=== PATIENT | male | born 1935 | race Caucasian/White ===

== ENCOUNTER 2020-01-13 16:05 | Inpatient (IN) | payer MEDICARE, OTHER ==
[~2020-01-13] VITALS: Ht 165.1 cm; Wt 40.8 kg
[~2020-01-13 16:05] MED LIST: NKM
--- NOTE | 2020-01-13 16:08 | Emergency Room Report ---
History of Present Illness General Chief Complaint: Dyspnea/Respdistress Source: EMS Present Illness HPI Patient is an 84-year-old male past medical history of end-stage renal disease on dialysis Thursday and dementia who was brought in by EMS from his dialysis center for possible chest pain. Per EMS patient was about 1 hour into his dialysis when he started kind of pounding on his chest like he wanted to clear his chest and brought up some thick yellow-green phlegm. Patient is Farsi speaking. I attempted to speak with him in Farsi and he is not responsive. Unable to obtain further history at this time. Allergies: Coded Allergies: LACTOSE (Unverified Allergy, Unknown, 01/13/20) COVID-19 Screening Contact w/high risk pt: No Recent Travel to affected area: No Experienced COVID-19 symptoms?: Yes COVID-19 symptoms experienced: Shortness of Breath, Cough COVID-19 Testing performed GILL NET STRINGER: No Patient History Past Medical History: dementia, renal disease, dialysis Past Surgical History: unable to obtain Pertinent Family History: unable to obtain Nursing Documentation-PMH Hx Hypertension: Yes Hx Diabetes: Yes Hx Dialysis: Yes - CKD History Of Psychiatric Problem: Yes - depression, alzheimer Review of Systems All Other Systems: limited - dementia, non-verbal Physical Exam Vital Signs Date Time Temp Pulse Resp B/P (MAP) Pulse Ox O2 Delivery O2 Flow Rate FiO2 01/13/20 15:57 97.9 100 18 93/52 (66) 100 Room Air Sp02 EP Interpretation: reviewed, normal - on 4L NC General Appearance: other - elderly, non-verbal, Chronically Ill Head: normocephalic, atraumatic Eyes: bilateral eye normal inspection, bilateral eye PERRL ENT: normal pharynx, no angioedema Neck: full range of motion, supple/symm/no masses Respiratory: no respiratory distress, rhonchi, other - R anteior chest wall dialysis catheter in place Cardiovascular #1: regular rate, rhythm, no edema Gastrointestinal: normal bowel sounds, non tender, soft, non-distended, no guarding, no rebound Rectal: deferred Musculoskeletal: back normal Skin: no rash Lymphatic: no adenopathy Procedures Critical Care Time Critical Care Time Total critical care time: Approximately 35 minutes. Due to a high probability of clinically significant, life threatening deterioration, the patient required my highest level of preparedness to intervene emergently and I personally spent this critical care time directly and personally managing the patient. This critical care time included obtaining a history; examining the patient; pulse oximetry; ordering and review of studies; arranging urgent treatment with development of a management plan; evaluation of patient's response to treatment ; frequent reassessment; and, discussions with other providers.This critical care time was performed to assess and manage the high probability of imminent, life-threatening deterioration that could result in multi-organ failure. It was exclusive of separately billable procedures and treating other patients and teaching time. Please see MDM section and the rest of the note for further information on patient assessment and treatment. Medical Decision Making Diagnostic Impression: Primary Impression: Pneumonia Additional Impressions: Chronic renal failure Suspected COVID-19 virus infection ER Course Patient pancultured. Patient has right lower lobe infiltrate. Suspected COVID- 19 infection. COVID-19 PCR sent. Patient has been on droplet precautions. Patient started on vancomycin and cefepime. Additional labs were ordered including d-dimer, CRP, lactate dehydrogenase and ferritin for them to trend due to the COVID-19 pandemic. Laboratory Tests Test 01/13/20 15:59 01/13/20 16:45 Arterial Blood pH 7.354 (7.350-7.450) Arterial Blood Partial Pressure CO2 44.2 mmHg (35.0-45.0) Arterial Blood Partial Pressure O2 92.1 mmHg (75.0-100.0) Arterial Blood HCO3 24.1 mmol/L (22.0-26.0) Arterial Blood Oxygen Saturation 96.4 % (95-100) Arterial Blood Base Excess -1.6 (-2-2) Yimi Test Positive White Blood Count 11.0 K/UL (4.8-10.8) H Red Blood Count 4.27 M/UL (4.70-6.10) L Hemoglobin 12.6 G/DL (14.2-18.0) L Hematocrit 43.9 % (42.0-52.0) Mean Corpuscular Volume 103 FL (80-99) H Mean Corpuscular Hemoglobin 29.6 PG (27.0-31.0) Mean Corpuscular Hemoglobin Concent 28.8 G/DL (32.0-36.0) L Red Cell Distribution Width 22.5 % (11.6-14.8) H Platelet Count 93 K/UL (150-450) L Mean Platelet Volume 11.3 FL (6.5-10.1) H Neutrophils (%) (Auto) % (45.0-75.0) Lymphocytes (%) (Auto) % (20.0-45.0) Monocytes (%) (Auto) % (1.0-10.0) Eosinophils (%) (Auto) % (0.0-3.0) Basophils (%) (Auto) % (0.0-2.0) Differential Total Cells Counted 100 Neutrophils % (Manual) 93 % (45-75) H Lymphocytes % (Manual) 3 % (20-45) L Monocytes % (Manual) 3 % (1-10) Eosinophils % (Manual) 0 % (0-3) Basophils % (Manual) 0 % (0-2) Band Neutrophils 1 % (0-8) Platelet Estimate Decreased L Platelet Morphology Normal Polychromasia 1+ Hypochromasia 1+ Anisocytosis 3+ Macrocytosis 2+ Prothrombin Time 14.8 SEC (9.30-11.50) H Prothrombin Time INR 1.4 (0.9-1.1) H Activated Partial Thromboplast Time 35 SEC (23-33) H D-Dimer 2.03 mg/L FEU (0.00-0.49) H Sodium Level 143 MMOL/L (136-145) Potassium Level 4.9 MMOL/L (3.5-5.1) Chloride Level 109 MMOL/L (98-107) H Carbon Dioxide Level 25 MMOL/L (21-32) Anion Gap 9 mmol/L (5-15) Blood Urea Nitrogen 11 mg/dL (7-18) Creatinine 2.3 MG/DL (0.55-1.30) H Estimated Glomerular Filtration Rate 27.1 mL/min (>60) Glucose Level 72 MG/DL (74-106) L Lactic Acid Level 1.70 mmol/L (0.4-2.0) Calcium Level 8.0 MG/DL (8.5-10.1) L Magnesium Level 1.9 MG/DL (1.8-2.4) Ferritin 214 NG/ML (8-388) Total Bilirubin 0.8 MG/DL (0.2-1.0) Aspartate Amino Transferase (AST) 36 U/L (15-37) Alanine Aminotransferase (ALT) 10 U/L (12-78) L Alkaline Phosphatase 68 U/L (46-116) Lactate Dehydrogenase 307 U/L (81-234) H Total Creatine Kinase 62 U/L (26-308) Creatine Kinase MB 0.7 NG/ML (0.0-3.6) Creatine Kinase MB Relative Index 1.1 Troponin I 0.010 ng/mL (0.000-0.056) C-Reactive Protein, Quantitative 5.7 mg/dL (0.00-0.90) H Pro-B-Type Natriuretic Peptide > 82412 pg/mL (0-125) H Total Protein 6.9 G/DL (6.4-8.2) Albumin 1.8 G/DL (3.4-5.0) L Globulin 5.1 g/dL Albumin/Globulin Ratio 0.4 (1.0-2.7) L EKG Diagnostic Results EKG Time: 16:51 EP Interpretation: MD Jenny Rate: tachycardiac Rhythm: other - sinus tachycardia ST Segments: no acute changes ASA given to the pt in ED: No Rhythm Strip Diag. Results Rhythm Strip Time: 18:12 EP Interpretation: yes - mD Jenny Rate: 93 Rhythm: NSR, no PVC's, no ectopy Chest X-Ray Diagnostic Results Chest X-Ray Diagnostic Results : Chest X-Ray Ordered: Yes # of Views/Limited/Complete: 1 View Indication: Chest Pain EP Interpretation: Yes Interpretation: no effusion, no pneumothorax, other - RLL infiltrate, R dialysis catheter in palce Impression: Other - pneumonia Electronically Signed by: MD Jenny Last Vital Signs Date Time Temp Pulse Resp B/P (MAP) Pulse Ox O2 Delivery O2 Flow Rate FiO2 01/13/20 15:57 97.9 100 18 93/52 (66) 100 Room Air Disposition: ADMITTED INPATIENT - Telemetry Condition: Critical Physician Consult: Yvonne Davis M.D. January 13, 2020 16:08
[2020-01-13 16:15] VITALS: BP 93/52
--- NOTE | 2020-01-13 16:16 | NUR ---
ED Nurse Note: Patient BIBRavi RA41 from a Dialysis Center c/o SOB, cough and congestion. Desating to 88% RA, Pt is now on 4L nc, 100%. Dialysis days MWF. Patient has shunt on his left upper chest, patient AAO x2, skin is warm to touch. IV access established on left forearm 22ga, blood specimen collected sent down.
--- NOTE | 2020-01-13 16:31 | NUR ---
ED Nurse Note: DAUGHTER OVIDIO SON-[phone]
[2020-01-13] MEDS ORDERED: Vancomycin 1.25gm/NS Premix 275 ML IVPB STA (16:32)
[2020-01-13] MEDS ORDERED: Cefepime HCl 2 GM in D5W 55 ML IVPB ONE (16:45)
--- NOTE | 2020-01-13 16:59 | Diagnostic Imaging Report ---
Procedure: XRAY Chest 1v Reason for study: Reason For Exam: COUGH Comparison films: 04/07/2013. FINDINGS: There is a right central venous catheter in place. Vascularity is normal. Mild hazy infiltrate right lung base. Cardiac and mediastinal silhouette are within normal limits. CP angles are sharp. The bony thorax appear unremarkable. IMPRESSION: Mild hazy right basilar infiltrate.
[2020-01-13 17:04] LABS: HEMATOCRIT 43.9 % (42.0-52.0); HEMOGLOBIN 12.6 G/DL (14.2-18.0); MEAN CORPUSCULAR VOLUME 103 FL (80-99); PLATELET COUNT 93 K/UL (150-450); RED BLOOD COUNT 4.27 M/UL (4.70-6.10); RED CELL DISTRIBUTION WIDTH 22.5 % (11.6-14.8)
[2020-01-13 17:20] LABS: INR 1.4 (0.9-1.1)
[2020-01-13 17:38] LABS: ANION GAP 9 mmol/L (5-15); BLOOD UREA NITROGEN 11 mg/dL (7-18); CARBON DIOXIDE 25 MMOL/L (21-32); CHLORIDE 109 MMOL/L (98-107); CREATININE 2.3 MG/DL (0.55-1.30); POTASSIUM 4.9 MMOL/L (3.5-5.1); SODIUM 143 MMOL/L (136-145)
--- NOTE | 2020-01-13 17:39 | Consultation ---
History of Present Illness General Chief Complaint: Dyspnea/Respdistress Reason for Consultation: ESRD on HD Present Illness HPI 84-year-old male past medical history of ESRD on dialysis MWF and dementia who was brought in by EMS from his dialysis center for possible chest pain. Per EMS patient was about 1 hour into his dialysis when he started kind of pounding on his chest like he wanted to clear his chest and brought up some thick yellow- green phlegm. Info obtained from EMR as patient cannot provide any history due to dementia. CXR showed Mild hazy right basilar infiltrate. There is a right central venous catheter in place. Vascularity is normal. Mild hazy infiltrate right lung base. Cardiac and mediastinal silhouette are within normal limits. CP angles are sharp. The bony thorax appear unremarkable. IMPRESSION: Mild hazy right basilar infiltrate. Allergies: Coded Allergies: LACTOSE (Unverified Allergy, Unknown, 01/13/20) Medication History Scheduled Ergocalciferol (Vitamin D2) (Vitamin D2), 50,000 UNIT PO QWEEK, (Reported) Ferrous Sulfate* (Ferrous Sulfate*), 325 MG ORAL DAILY, (Reported) No Known Medications* (NKM - No Known Medications*), 0 ., (Reported) Olanzapine* (Zyprexa*), 2.5 MG ORAL DAILY, (Reported) Pantoprazole* (Protonix*), 40 MG ORAL DAILY, (Reported) Sodium Bicarbonate* (Nahco3*), 325 MG PO BID, (Reported) Miscellaneous Medications Folic Acid/Vitamin B Comp W-C (Neris-Kelsey Tablet), 0.8 MG PO, (Reported) Patient History Healthcare decision maker Resuscitation status Advanced Directive on File Review of Systems ROS Narrative unable to obtain Physical Exam General Appearance: no apparent distress Lines, tubes and drains: peripheral HEENT: normocephalic, atraumatic Neck: non-tender Respiratory/Chest: chest wall non-tender, lungs clear Cardiovascular/Chest: normal peripheral pulses, no JVD Abdomen: normal bowel sounds Extremities: trace edema Skin Exam: no diaphoresis Neurologic: disoriented Last 24 Hour Vital Signs Date Time Temp Pulse Resp B/P (MAP) Pulse Ox O2 Delivery O2 Flow Rate FiO2 01/13/20 16:15 100 18 Room Air 01/13/20 16:15 97.9 18 93/52 100 Room Air 01/13/20 15:57 97.9 100 18 93/52 (66) 100 Room Air Laboratory Tests Test 01/13/20 15:59 01/13/20 16:45 Arterial Blood pH 7.354 (7.350-7.450) Arterial Blood Partial Pressure CO2 44.2 mmHg (35.0-45.0) Arterial Blood Partial Pressure O2 92.1 mmHg (75.0-100.0) Arterial Blood HCO3 24.1 mmol/L (22.0-26.0) Arterial Blood Oxygen Saturation 96.4 % (95-100) Arterial Blood Base Excess -1.6 (-2-2) Yimi Test Positive White Blood Count 11.0 K/UL (4.8-10.8) H Red Blood Count 4.27 M/UL (4.70-6.10) L Hemoglobin 12.6 G/DL (14.2-18.0) L Hematocrit 43.9 % (42.0-52.0) Mean Corpuscular Volume 103 FL (80-99) H Mean Corpuscular Hemoglobin 29.6 PG (27.0-31.0) Mean Corpuscular Hemoglobin Concent 28.8 G/DL (32.0-36.0) L Red Cell Distribution Width 22.5 % (11.6-14.8) H Platelet Count 93 K/UL (150-450) L Mean Platelet Volume 11.3 FL (6.5-10.1) H Neutrophils (%) (Auto) % (45.0-75.0) Lymphocytes (%) (Auto) % (20.0-45.0) Monocytes (%) (Auto) % (1.0-10.0) Eosinophils (%) (Auto) % (0.0-3.0) Basophils (%) (Auto) % (0.0-2.0) Neutrophils % (Manual) Pending Lymphocytes % (Manual) Pending Platelet Estimate Pending Platelet Morphology Pending Prothrombin Time 14.8 SEC (9.30-11.50) H Prothromb Time International Ratio 1.4 (0.9-1.1) H Activated Partial Thromboplast Time 35 SEC (23-33) H D-Dimer 2.03 mg/L FEU (0.00-0.49) H Sodium Level Pending Potassium Level Pending Chloride Level Pending Carbon Dioxide Level Pending Blood Urea Nitrogen Pending Creatinine Pending Estimat Glomerular Filtration Rate Pending Glucose Level Pending Lactic Acid Level 1.70 mmol/L (0.4-2.0) Calcium Level Pending Magnesium Level Pending Ferritin Pending Total Bilirubin Pending Aspartate Amino Transf (AST/SGOT) Pending Alanine Aminotransferase (ALT/SGPT) Pending Alkaline Phosphatase Pending Lactate Dehydrogenase Pending Total Creatine Kinase Pending Creatine Kinase MB Pending Troponin I 0.010 ng/mL (0.000-0.056) C-Reactive Protein, Quantitative Pending Pro-B-Type Natriuretic Peptide Pending Total Protein Pending Albumin Pending Globulin Pending Height (Feet): 5 Height (Inches): 6.00 Weight (Pounds): 85 Medications Current Medications Medications (Trade) Dose Ordered Sig/Dorothy Route PRN Reason Start Time Stop Time Status Last Admin Dose Admin Vancomycin/Sodium Chloride 275 ml @ 183.333 mls/hr Q24H STAT IVPB 01/13/20 16:32 01/13/20 18:01 01/13/20 17:05 Assessment/Plan Diagnosis Hazard I: #ESRD on MWF via R IJ catheter #possible chest pain ? #possible sepsis #possible aspiration pneumonia #Possible pneumonia #Advanced dementia - admit inpatient - vancomycin, cefepime adn flagyl - follow cx - ID eval - pulm eval - breathing tx prn - next Hd on thursday - check PTH/vit D - check iron panel ferritin - monitor mag, phos, BMP daily Time spent 70 min, greater than 50% spent on care coordination and counseling Ying Londono M.D. January 13, 2020 17:39
[2020-01-13 17:55] LABS: ALANINE AMINOTRANSFERASE 10 U/L (12-78); ALBUMIN 1.8 G/DL (3.4-5.0); ALBUMIN/GLOBULIN RATIO 0.4 (1.0-2.7); ALKALINE PHOSPHATASE 68 U/L (46-116); ASPARTATE AMINO TRANSFERASE 36 U/L (15-37); BILIRUBIN,TOTAL 0.8 MG/DL (0.2-1.0); CKMB 0.7 NG/ML (0.0-3.6); CREATINE KINASE 62 U/L (26-308); FERRITIN 214 NG/ML (8-388)
[2020-01-13] MEDS ORDERED: Albuterol/Ipratropium 3ml neb HHN PRN (18:45)
[2020-01-13] MEDS ORDERED: DiphenhydrAMINE 25mg Tab ORAL PRN (18:45)
[2020-01-13 18:55] VITALS: BP 95/51
--- NOTE | 2020-01-13 19:12 | NUR ---
HAND-OFF: Report given to WINDY Shirley.
--- NOTE | 2020-01-13 19:14 | History and Physical ---
History of Present Illness General Date patient seen: January 13, 2020 Time patient seen: 19:00 Reason for Hospitalization: Dyspnea/Respdistress Present Illness HPI Patient is an 84-year-old male past medical history of end-stage renal disease on dialysis Thursday and dementia who was brought in by EMS from his dialysis center for possible chest pain. Per EMS patient was about 1 hour into his dialysis when he started kind of pounding on his chest like he wanted to clear his chest and brought up some thick yellow-green phlegm. Info obtained from EMR as patient cannot provide any history due to dementia. CXR showed Mild hazy right basilar infiltrate Family Hx: Unable to obtain due to dementia Social Hx: Unable to obtain due to dementia Allergies: Coded Allergies: LACTOSE (Unverified Allergy, Unknown, 01/13/20) COVID-19 Screening Contact w/high risk pt: No Recent Travel to affected area: No Experienced COVID-19 symptoms?: Yes COVID-19 symptoms experienced: Shortness of Breath, Cough Medication History Scheduled No Known Medications* (NKM - No Known Medications*), 0 ., (Reported) Patient History Healthcare decision maker Resuscitation status Advanced Directive on File Review of Systems ROS Narrative Unable to obtain due to dementia Physical Exam General Appearance: alert, confused Neck: normal alignment, supple Respiratory/Chest: lungs clear, normal breath sounds, no respiratory distress, no accessory muscle use Cardiovascular/Chest: normal rate, regular rhythm Abdomen: non tender, soft, no organomegaly Neurologic: alert, disoriented Last 24 Hour Vital Signs Date Time Temp Pulse Resp B/P (MAP) Pulse Ox O2 Delivery O2 Flow Rate FiO2 01/13/20 18:55 97.9 78 18 95/51 100 Room Air 01/13/20 16:15 100 18 Room Air 01/13/20 16:15 97.9 18 93/52 100 Room Air 01/13/20 15:57 97.9 100 18 93/52 (66) 100 Room Air Laboratory Tests Test 01/13/20 15:59 01/13/20 16:45 Arterial Blood pH 7.354 (7.350-7.450) Arterial Blood Partial Pressure CO2 44.2 mmHg (35.0-45.0) Arterial Blood Partial Pressure O2 92.1 mmHg (75.0-100.0) Arterial Blood HCO3 24.1 mmol/L (22.0-26.0) Arterial Blood Oxygen Saturation 96.4 % (95-100) Arterial Blood Base Excess -1.6 (-2-2) Yimi Test Positive White Blood Count 11.0 K/UL (4.8-10.8) H Red Blood Count 4.27 M/UL (4.70-6.10) L Hemoglobin 12.6 G/DL (14.2-18.0) L Hematocrit 43.9 % (42.0-52.0) Mean Corpuscular Volume 103 FL (80-99) H Mean Corpuscular Hemoglobin 29.6 PG (27.0-31.0) Mean Corpuscular Hemoglobin Concent 28.8 G/DL (32.0-36.0) L Red Cell Distribution Width 22.5 % (11.6-14.8) H Platelet Count 93 K/UL (150-450) L Mean Platelet Volume 11.3 FL (6.5-10.1) H Neutrophils (%) (Auto) % (45.0-75.0) Lymphocytes (%) (Auto) % (20.0-45.0) Monocytes (%) (Auto) % (1.0-10.0) Eosinophils (%) (Auto) % (0.0-3.0) Basophils (%) (Auto) % (0.0-2.0) Differential Total Cells Counted 100 Neutrophils % (Manual) 93 % (45-75) H Lymphocytes % (Manual) 3 % (20-45) L Monocytes % (Manual) 3 % (1-10) Eosinophils % (Manual) 0 % (0-3) Basophils % (Manual) 0 % (0-2) Band Neutrophils 1 % (0-8) Platelet Estimate Decreased L Platelet Morphology Normal Polychromasia 1+ Hypochromasia 1+ Anisocytosis 3+ Macrocytosis 2+ Prothrombin Time 14.8 SEC (9.30-11.50) H Prothromb Time International Ratio 1.4 (0.9-1.1) H Activated Partial Thromboplast Time 35 SEC (23-33) H D-Dimer 2.03 mg/L FEU (0.00-0.49) H Sodium Level 143 MMOL/L (136-145) Potassium Level 4.9 MMOL/L (3.5-5.1) Chloride Level 109 MMOL/L (98-107) H Carbon Dioxide Level 25 MMOL/L (21-32) Anion Gap 9 mmol/L (5-15) Blood Urea Nitrogen 11 mg/dL (7-18) Creatinine 2.3 MG/DL (0.55-1.30) H Estimat Glomerular Filtration Rate 27.1 mL/min (>60) Glucose Level 72 MG/DL (74-106) L Lactic Acid Level 1.70 mmol/L (0.4-2.0) Calcium Level 8.0 MG/DL (8.5-10.1) L Magnesium Level 1.9 MG/DL (1.8-2.4) Ferritin 214 NG/ML (8-388) Total Bilirubin 0.8 MG/DL (0.2-1.0) Aspartate Amino Transf (AST/SGOT) 36 U/L (15-37) Alanine Aminotransferase (ALT/SGPT) 10 U/L (12-78) L Alkaline Phosphatase 68 U/L (46-116) Lactate Dehydrogenase 307 U/L (81-234) H Total Creatine Kinase 62 U/L (26-308) Creatine Kinase MB 0.7 NG/ML (0.0-3.6) Creatine Kinase MB Relative Index 1.1 Troponin I 0.010 ng/mL (0.000-0.056) C-Reactive Protein, Quantitative 5.7 mg/dL (0.00-0.90) H Pro-B-Type Natriuretic Peptide > 57308 pg/mL (0-125) H Total Protein 6.9 G/DL (6.4-8.2) Albumin 1.8 G/DL (3.4-5.0) L Globulin 5.1 g/dL Albumin/Globulin Ratio 0.4 (1.0-2.7) L Height (Feet): 5 Height (Inches): 6.00 Weight (Pounds): 85 Medications Current Medications Medications (Trade) Dose Ordered Sig/Dorothy Route PRN Reason Start Time Stop Time Status Last Admin Dose Admin Acetaminophen (Tylenol) 650 mg Q4H PRN ORAL Mild Pain (Pain Scale 1-3) 01/13/20 18:45 02/12/20 18:44 Albuterol/ Ipratropium (Albuterol/ Ipratropium) 3 ml Q6H PRN HHN Shortness of Breath 01/13/20 18:45 01/18/20 18:44 Cefepime HCl 1 gm/ Dextrose 55 ml @ 110 mls/hr Q24H IVPB 01/14/20 09:00 01/21/20 08:59 Dextrose (Dextrose 50%) 25 ml Q30M PRN IV Hypoglycemia 01/13/20 18:45 04/12/20 18:44 Dextrose (Dextrose 50%) 50 ml Q30M PRN IV Hypoglycemia 01/13/20 18:45 04/12/20 18:44 Diphenhydramine HCl (Benadryl) 25 mg Q6H PRN ORAL Itching/Pruritis 01/13/20 18:45 02/12/20 18:44 Docusate Sodium (Colace) 100 mg EVERY 12 HOURS ORAL 01/13/20 21:00 02/12/20 20:59 Heparin Sodium (Porcine) (Heparin 5000 units/ml) 5,000 units EVERY 12 HOURS SUBQ 01/13/20 21:00 02/27/20 20:59 UNV Ondansetron HCl (Zofran) 4 mg Q6H PRN IVP Nausea & Vomiting 01/13/20 18:45 02/12/20 18:44 Vancomycin HCl (Vanco rx to dose) 1 ea DAILY PRN MISC Per rx protocol 01/13/20 18:45 02/12/20 18:44 Assessment/Plan Assessment/Plan: 84 year old man with ESRD, dementia who comes in with suspected gram negative vs MRSA pneumonia, also rule out COVID19. #right basilar pneumonia, possible gram negative vs MRSA given he is a dialysis patient. -admit to medical floor -continue broad spectrum antibiotics, vanco and cefepime, monitor vanco levels per pharmacy -check COVID19 PCR -sputum culture, blood culture -aspiration precautions -COVID precautions until ruled out -Pulm and ID consulted #ESRD -HD per Dr. Londono -Monitor BMP #Thrombocytopenia, unclear baseline -monitor CBC -SCD for VTE prophylaxis #Dementia -fall and aspiration precautions I spent 72 minutes on this patient's case, and 39 minutes was dedicated to counseling and/or care coordination with RN, consulting MDs, case management Gil Bethea MD January 13, 2020 19:13
--- NOTE | 2020-01-13 19:15 | NUR ---
ED Nurse Note: Radha the report from Gali. Pt VVS and aslepp comfortably. Will transfer to tele floor.
--- NOTE | 2020-01-13 19:25 | Infectious Diseases Prog Note ---
Assessment/Plan Assessment/Plan Full consult dictated; A) 1) pna - ? hcap, ? aspiration, ? cap 2) ? covid-19 infection/pna 3) sepsis P) 1) vancomycin, cefepime and flagyl 2) check cultures, labs and chest x-ray 3) thank you Subjective Allergies: Coded Allergies: LACTOSE (Unverified Allergy, Unknown, 01/13/20) Objective Vital Signs Last 24 Hour Vital Signs Date Time Temp Pulse Resp B/P (MAP) Pulse Ox O2 Delivery O2 Flow Rate FiO2 01/13/20 18:55 97.9 78 18 95/51 100 Room Air 01/13/20 16:15 100 18 Room Air 01/13/20 16:15 97.9 18 93/52 100 Room Air 01/13/20 15:57 97.9 100 18 93/52 (66) 100 Room Air Height (Feet): 5 Height (Inches): 6.00 Weight (Pounds): 85 Microbiology Date/Time Source Procedure Growth Status 01/13/20 16:45 Rectum Received Laboratory Tests Test 01/13/20 15:59 01/13/20 16:45 Arterial Blood pH 7.354 (7.350-7.450) Arterial Blood Partial Pressure CO2 44.2 mmHg (35.0-45.0) Arterial Blood Partial Pressure O2 92.1 mmHg (75.0-100.0) Arterial Blood HCO3 24.1 mmol/L (22.0-26.0) Arterial Blood Oxygen Saturation 96.4 % (95-100) Arterial Blood Base Excess -1.6 (-2-2) Yimi Test Positive White Blood Count 11.0 K/UL (4.8-10.8) H Red Blood Count 4.27 M/UL (4.70-6.10) L Hemoglobin 12.6 G/DL (14.2-18.0) L Hematocrit 43.9 % (42.0-52.0) Mean Corpuscular Volume 103 FL (80-99) H Mean Corpuscular Hemoglobin 29.6 PG (27.0-31.0) Mean Corpuscular Hemoglobin Concent 28.8 G/DL (32.0-36.0) L Red Cell Distribution Width 22.5 % (11.6-14.8) H Platelet Count 93 K/UL (150-450) L Mean Platelet Volume 11.3 FL (6.5-10.1) H Neutrophils (%) (Auto) % (45.0-75.0) Lymphocytes (%) (Auto) % (20.0-45.0) Monocytes (%) (Auto) % (1.0-10.0) Eosinophils (%) (Auto) % (0.0-3.0) Basophils (%) (Auto) % (0.0-2.0) Differential Total Cells Counted 100 Neutrophils % (Manual) 93 % (45-75) H Lymphocytes % (Manual) 3 % (20-45) L Monocytes % (Manual) 3 % (1-10) Eosinophils % (Manual) 0 % (0-3) Basophils % (Manual) 0 % (0-2) Band Neutrophils 1 % (0-8) Platelet Estimate Decreased L Platelet Morphology Normal Polychromasia 1+ Hypochromasia 1+ Anisocytosis 3+ Macrocytosis 2+ Prothrombin Time 14.8 SEC (9.30-11.50) H Prothromb Time International Ratio 1.4 (0.9-1.1) H Activated Partial Thromboplast Time 35 SEC (23-33) H D-Dimer 2.03 mg/L FEU (0.00-0.49) H Sodium Level 143 MMOL/L (136-145) Potassium Level 4.9 MMOL/L (3.5-5.1) Chloride Level 109 MMOL/L (98-107) H Carbon Dioxide Level 25 MMOL/L (21-32) Anion Gap 9 mmol/L (5-15) Blood Urea Nitrogen 11 mg/dL (7-18) Creatinine 2.3 MG/DL (0.55-1.30) H Estimat Glomerular Filtration Rate 27.1 mL/min (>60) Glucose Level 72 MG/DL (74-106) L Lactic Acid Level 1.70 mmol/L (0.4-2.0) Calcium Level 8.0 MG/DL (8.5-10.1) L Magnesium Level 1.9 MG/DL (1.8-2.4) Ferritin 214 NG/ML (8-388) Total Bilirubin 0.8 MG/DL (0.2-1.0) Aspartate Amino Transf (AST/SGOT) 36 U/L (15-37) Alanine Aminotransferase (ALT/SGPT) 10 U/L (12-78) L Alkaline Phosphatase 68 U/L (46-116) Lactate Dehydrogenase 307 U/L (81-234) H Total Creatine Kinase 62 U/L (26-308) Creatine Kinase MB 0.7 NG/ML (0.0-3.6) Creatine Kinase MB Relative Index 1.1 Troponin I 0.010 ng/mL (0.000-0.056) C-Reactive Protein, Quantitative 5.7 mg/dL (0.00-0.90) H Pro-B-Type Natriuretic Peptide > 54883 pg/mL (0-125) H Total Protein 6.9 G/DL (6.4-8.2) Albumin 1.8 G/DL (3.4-5.0) L Globulin 5.1 g/dL Albumin/Globulin Ratio 0.4 (1.0-2.7) L Current Medications Medications (Trade) Dose Ordered Sig/Dorothy Route PRN Reason Start Time Stop Time Status Last Admin Dose Admin Acetaminophen (Tylenol) 650 mg Q4H PRN ORAL Mild Pain (Pain Scale 1-3) 01/13/20 18:45 02/12/20 18:44 Albuterol/ Ipratropium (Albuterol/ Ipratropium) 3 ml Q6H PRN HHN Shortness of Breath 01/13/20 18:45 01/18/20 18:44 Cefepime HCl 1 gm/ Dextrose 55 ml @ 110 mls/hr Q24H IVPB 01/14/20 09:00 01/21/20 08:59 Dextrose (Dextrose 50%) 25 ml Q30M PRN IV Hypoglycemia 01/13/20 18:45 04/12/20 18:44 Dextrose (Dextrose 50%) 50 ml Q30M PRN IV Hypoglycemia 01/13/20 18:45 04/12/20 18:44 Diphenhydramine HCl (Benadryl) 25 mg Q6H PRN ORAL Itching/Pruritis 01/13/20 18:45 02/12/20 18:44 Docusate Sodium (Colace) 100 mg EVERY 12 HOURS ORAL 01/13/20 21:00 02/12/20 20:59 Heparin Sodium (Porcine) (Heparin 5000 units/ml) 5,000 units EVERY 12 HOURS SUBQ 01/13/20 21:00 7/6/20 20:59 UNV Ondansetron HCl (Zofran) 4 mg Q6H PRN IVP Nausea & Vomiting 01/13/20 18:45 02/12/20 18:44 Vancomycin HCl (Vanco rx to dose) 1 ea DAILY PRN MISC Per rx protocol 01/13/20 18:45 02/12/20 18:44 Marleny Rainey MD January 13, 2020 19:25
[2020-01-13] MEDS ORDERED: VITAMIN D250 MC1 PO (19:31)
[2020-01-13] MEDS ORDERED: ZYPREXA2.5 MG ORAL (19:31)
[2020-01-13] MEDS ORDERED: RENA-VITE TABL0.8 M1 PO (19:31)
[2020-01-13] MEDS ORDERED: PROTONIX40 MG ORAL (19:31)
[2020-01-13] MEDS ORDERED: FERROUS SULFAT325 MG ORAL (19:31)
[2020-01-13] MEDS ORDERED: SODIUM BICARBO650 MG PO (19:31)
--- NOTE | 2020-01-13 19:34 | NUR ---
ED Nurse Note: Tele floor requests to call back at 1999.
[2020-01-13 20:00] VITALS: BP 116/57
[2020-01-13] MEDS: Docusate 100mg cap ORAL SCH (21:00)
[2020-01-13] MEDS ORDERED: Heparin 5000 units/ml inj SUBQ SCH (21:00)
--- NOTE | 2020-01-13 21:00 | NUR ---
TRANSFER TO FLOOR: Patient transferred to Tele as ordered, per Dr. Mark. Report given to WINDY Em. Belongings and admission packet sent with pt. Transfered with 1 RN and 1 Tech with michael. Droplet precaution and safety observed.
--- NOTE | 2020-01-13 21:30 | NUR ---
NURSE NOTES: Received report from JAIME Hernandez RN. Pt is stable, denies pain, FLACC 0. No signs or symptoms of acute distress noted at this time. Pt in bed, awake, A&O x 1. Bed in lowest position, bed alarm armed, call light within reach. Will start plan of care and close monitoring.
[2020-01-14] VITALS: BP 121/58
--- NOTE | 2020-01-14 00:45 | Consultation ---
DATE OF CONSULTATION: 01/13/2020 INFECTIOUS DISEASE CONSULTATION CONSULTING PHYSICIAN: Marleny Rainey MD. ATTENDING PHYSICIAN: Ying Londono MD. REFERRING PHYSICIAN: Ying Londono MD. REASON FOR CONSULTATION: Pneumonia, possible sepsis. CHIEF COMPLAINT: Patient's chief complaint coming in to the hospital is pneumonia. HISTORY OF PRESENT ILLNESS: This is an 84-year-old male who has history of end-stage renal disease, on hemodialysis. Patient also has history of dementia and is high risk for aspiration. Patient was getting dialysis and was noted to have chest pain. Patient also had yellow-green phlegm. Patient was brought to [facility]. There is a question if patient is septic. He has Alzheimer's dementia and is at aspiration risk. Chest x-ray shows a pneumonia on the right lower lobe right basilar infiltrate. Infectious Disease consultation requested for antibiotic management. Patient was placed on Vanco and cefepime and also add metronidazole for possible aspiration and also healthcare-acquired pneumonia since he is a dialysis patient also versus community-acquired pneumonia. Patient is also being ruled out COVID-19 virus infection with pneumonia. Patient also could be septic with altered mental status, looks like weakness. He has a mild leukocytosis and tachycardia. Patient was placed on Vanco, Rocephin, Flagyl for pneumonia, sepsis. MAR was noted. Orders were noted. Notes and records reviewed. REVIEW OF SYSTEMS: CONSTITUTIONAL: Generalized fatigue and weakness. He is in isolation for COVID-19 virus. I saw him in the emergency room. He has no fevers. No pressors. HEAD AND NECK: No head pain or neck pain. CARDIAC: He did come in with chest pain. GASTROINTESTINAL: No nausea, vomiting, abdominal pain, or diarrhea. GENITOURINARY: No Louis. He is on hemodialysis. PULMONARY: He has mild cough and congestion, but he has yellow-green sputum production. SKIN: No rash. EXTREMITIES: No pain. NEUROLOGIC: No seizures. Generalized fatigue. No focal weakness. Not a very good historian with Alzheimer's dementia. SKIN: No rash. PAST MEDICAL HISTORY: Patient has a past medical history of following. Patient has a past medical history of Alzheimer's dementia and aspiration risk. Has history of chronic kidney disease, end-stage renal disease, and hemodialysis. He has history of diabetes and also history of hypertension. Also history of depression. SOCIAL HISTORY: Negative for smoking, alcohol, drug abuse. FAMILY HISTORY: Noncontributory. Negative for tuberculosis or cancer. ALLERGIES: Lactulose. No antibiotic allergies. MEDICATIONS: Upon reviewing the MAR, he is on the following medications. He is on cefepime, Vanco, Flagyl, acetaminophen, albuterol treatments, Zofran, diphenhydramine. Outside medications noted and reconciliated. Not documented at this time. PHYSICAL EXAMINATION: VITAL SIGNS: Temperature 97.9, pulse rate 70, respiratory rate 18, blood pressure 95/51, saturation 100% on room air. Pulse rate has been as high as 100. Blood pressure has been systolically in the low 90s. GENERAL: Weak, opens eyes. He is alert. Mild shortness of breath. HEAD AND NECK: Oral exam, no thrush. Eye exam, no icterus. Normocephalic. Neck is supple. No JVD. HEART: Regular. No gallop or murmur. No friction rub. ABDOMEN: Soft. Positive bowel sounds. Nontender. No organomegaly. LUNGS: Bilateral rhonchi and rales, more so on the right. SKIN: No rash or dermatitis. MUSCULOSKELETAL: No septic arthritis or effusions. Legs are without cellulitis. PERIPHERAL VASCULAR: No gangrene. GENITOURINARY: No Louis. He is on hemodialysis. LINE SITES: Without phlebitis. NEUROLOGIC: Generalized weakness. Alert. Weak, but responsive. LABORATORY DATA: White count 11.0, hemoglobin 12.6. Creatinine 2.3. LFTs were noted. Cultures, blood cultures I believe have been ordered. COVID-19 virus PCR has been ordered. So blood cultures are pending and COVID-19 PCR testing pending. IMAGING STUDIES: Chest x-ray shows a right basilar pneumonia or infiltrate. ASSESSMENT AND PLAN: 1. Patient has right-sided pneumonia. Patient is high risk for aspiration or healthcare-acquired pneumonia with history of dialysis including gram-negative MRSA pneumonia and aspiration. Patient also could have community-acquired pneumonia. Patient is possibly septic with mildly elevated white count and tachycardia. Patient must be ruled out for COVID-19 virus infection especially in patient elderly with pneumonia. At this time, we will continue Vanco, cefepime, and Flagyl for MRSA gram-negative anaerobic coverage. Continue Vanco, cefepime, Flagyl for aspiration or healthcare-acquired pneumonia, community-acquired pneumonia and also follow up on COVID-19 PCR testing. Check followup labs, x-ray. Check blood cultures. 2. End-stage renal disease, on hemodialysis. 3. Chronic kidney disease. 4. Depression. 5. Alzheimer's. 6. Dementia. 7. Aspiration risk. 8. Diabetes. 9. Hypertension. 10. Blood sugar and blood pressure treatment for diabetes and hypertension per primary care team. 11. Allergies to lactulose. No antibiotic allergies. 12. Social history is negative. 13. Family history noncontributory. 14. MAR was noted. 15. Case discussed with RN. 16. Continue treatment per primary consultants. Marleny Rainey M.D. DR: CACHORRO JOB#: [id number] CC:
[2020-01-14 04:00] VITALS: BP 110/58
--- NOTE | 2020-01-14 05:30 | NUR ---
NURSE NOTES: Endorsed to Dayanara in Lab that RNs are unable to draw labs for this pt. Dayanara stated she will inform assigned pit laborer.
--- NOTE | 2020-01-14 07:29 | NUR ---
HAND-OFF: Report given to Rogelio Gilliam RN. Pt is in stable condition. Plan of care endorsed.
--- NOTE | 2020-01-14 07:55 | NUR ---
NURSE NOTES: Received report from WINDY Adkins. Patient in bed resting, no active s/s cardiac, respiratory distress noticed at this time. Patient AOx1-2, on room air, IV on right wrist 20G, asymptomatic, patent, intact. Bed in lowest position, side rails upx2, call light within reach, bed alarm on. Will continue to monitor.
[2020-01-14 08:00] VITALS: BP 101/51
[2020-01-14] MEDS: Docusate 100mg cap ORAL SCH ×2 (08:27→21:24)
[2020-01-14] MEDS: Cefepime HCl 1 GM in D5W 55 ML IVPB SCH (08:28)
[2020-01-14 09:03] LABS: HEMATOCRIT 42.2 % (42.0-52.0); HEMOGLOBIN 13.2 G/DL (14.2-18.0); MEAN CORPUSCULAR VOLUME 95 FL (80-99); PLATELET COUNT 89 K/UL (150-450); RED BLOOD COUNT 4.45 M/UL (4.70-6.10); RED CELL DISTRIBUTION WIDTH 22.3 % (11.6-14.8); WHITE BLOOD COUNT 11.4 K/UL (4.8-10.8)
[2020-01-14 09:57] LABS: ANION GAP 8 mmol/L (5-15); CALCIUM 8.6 MG/DL (8.5-10.1); CARBON DIOXIDE 23 MMOL/L (21-32); CHLORIDE 104 MMOL/L (98-107); POTASSIUM 5.1 MMOL/L (3.5-5.1)
[2020-01-14 10:03] LABS: BLOOD UREA NITROGEN 24 mg/dL (7-18); CREATININE 2.7 MG/DL (0.55-1.30); SODIUM 139 MMOL/L (136-145)
--- NOTE | 2020-01-14 10:55 | NUR ---
RD ASSESSMENT & RECOMMENDATIONS SEE CARE ACTIVITY FOR COMPLETE ASSESSMENT DAILY ESTIMATED NEEDS: Needs based on ESRD, HD/ 37.5kg 30-35 kcals/kg 5640-0054 total kcals 1.2-1.8 g protein/kg 45-68 g total protein Fluids per MD NUTRITION DIAGNOSIS: Increased kcal/prot needs R/T ESRD, underweight status as evidenced by HD dependent, severely underweight w/ BMI 13.8 and @ 61% IBW. ADDITIONAL RECOMMENDATIONS: * Per HD record: dry wt on 01/12= 37.5kg (82.5#) -> calibrated bedscale wt, daily wt monitoring * Monitor PO intake closely, rec liberalized REGULAR w/ poor PO * Monitor lytes closely: K and mag wnl, check phos level * WC eval for sacral wound photo -> add Nephrovite x 1 * Add Nepro TID w/ meals (425kcal/19g prot per mary)
--- NOTE | 2020-01-14 11:40 | General Progress Note ---
Assessment/Plan Assessment/Plan: Assessment #Aspiration PNA--> CXR w/ Right LL infiltrate #R/O COVID #ESRD on HD #Thrombocytopenia #Dementia Plan Appreciate Consultants Continue Broad Spectrum w/ Vancomycin , Flagyl and Cefepime Marti Cx Will consider swallow eval given concern for aspiration PNA Pending COVID test, obtain predictive markers Continue HD per nephro Monitor platelets, if drops below 50 hold chemical DVT ppx Obtain and Reconcile home meds Diet as tolerated Subjective Date patient seen: January 14, 2020 Time patient seen: 12:00 Allergies: Coded Allergies: LACTOSE (Unverified Allergy, Unknown, 01/13/20) Subjective Patient in no acute events; non verbal. Resting Objective Last 24 Hour Vital Signs Date Time Temp Pulse Resp B/P (MAP) Pulse Ox O2 Delivery O2 Flow Rate FiO2 01/14/20 08:00 97.0 79 20 101/51 (68) 92 01/14/20 08:00 74 01/14/20 04:00 72 01/14/20 04:00 98.1 86 20 110/58 (75) 95 01/14/20 00:00 98.6 93 20 121/58 (79) 95 01/13/20 23:34 Nasal Cannula 2.0 01/13/20 20:00 98.4 92 20 116/57 (76) 95 01/13/20 18:55 97.9 78 18 95/51 100 Room Air 01/13/20 16:15 100 18 Room Air 01/13/20 16:15 97.9 18 93/52 100 Room Air 01/13/20 15:57 97.9 100 18 93/52 (66) 100 Room Air Laboratory Tests 01/13/20 15:59: Arterial Blood pH 7.354, Arterial Blood Partial Pressure CO2 44.2, Arterial Blood Partial Pressure O2 92.1, Arterial Blood HCO3 24.1, Arterial Blood Oxygen Saturation 96.4, Arterial Blood Base Excess -1.6, Yimi Test Positive 01/13/20 16:45: White Blood Count 11.0H, Red Blood Count 4.27L, Hemoglobin 12.6L, Hematocrit 43.9, Mean Corpuscular Volume 103H, Mean Corpuscular Hemoglobin 29.6, Mean Corpuscular Hemoglobin Concent 28.8L, Red Cell Distribution Width 22.5H, Platelet Count 93L, Mean Platelet Volume 11.3H, Neutrophils (%) (Auto) , Lymphocytes (%) (Auto) , Monocytes (%) (Auto) , Eosinophils (%) (Auto) , Basophils (%) (Auto) , Differential Total Cells Counted 100, Neutrophils % ( Manual) 93H, Lymphocytes % (Manual) 3L, Monocytes % (Manual) 3, Eosinophils % ( Manual) 0, Basophils % (Manual) 0, Band Neutrophils 1, Platelet Estimate DecreasedL, Platelet Morphology Normal, Polychromasia 1+, Hypochromasia 1+, Anisocytosis 3+, Macrocytosis 2+, Prothrombin Time 14.8H, Prothromb Time International Ratio 1.4H, Activated Partial Thromboplast Time 35H, D-Dimer 2.03H , Sodium Level 143, Potassium Level 4.9, Chloride Level 109H, Carbon Dioxide Level 25, Anion Gap 9, Blood Urea Nitrogen 11, Creatinine 2.3H, Estimat Glomerular Filtration Rate 27.1, Glucose Level 72L, Lactic Acid Level 1.70, Calcium Level 8.0L, Magnesium Level 1.9, Ferritin 214, Total Bilirubin 0.8, Aspartate Amino Transf (AST/SGOT) 36, Alanine Aminotransferase (ALT/SGPT) 10L, Alkaline Phosphatase 68, Lactate Dehydrogenase 307H, Total Creatine Kinase 62, Creatine Kinase MB 0.7, Creatine Kinase MB Relative Index 1.1, Troponin I 0.010 , C-Reactive Protein, Quantitative 5.7H, Pro-B-Type Natriuretic Peptide > 83295V , Total Protein 6.9, Albumin 1.8L, Globulin 5.1, Albumin/Globulin Ratio 0.4L 01/14/20 07:45: White Blood Count 11.4H, Red Blood Count 4.45L, Hemoglobin 13.2L, Hematocrit 42.2, Mean Corpuscular Volume 95, Mean Corpuscular Hemoglobin 29.8, Mean Corpuscular Hemoglobin Concent 31.3L, Red Cell Distribution Width 22.3H, Platelet Count 89L, Mean Platelet Volume 9.3, Neutrophils (%) (Auto) , Lymphocytes (%) (Auto) , Monocytes (%) (Auto) , Eosinophils (%) (Auto) , Basophils (%) (Auto) , Differential Total Cells Counted 100, Neutrophils % ( Manual) 97H, Lymphocytes % (Manual) 1L, Monocytes % (Manual) 2, Eosinophils % ( Manual) 0, Basophils % (Manual) 0, Band Neutrophils 0, Platelet Estimate DecreasedL, Platelet Morphology Normal, Anisocytosis 3+, Sodium Level 139, Potassium Level 5.1, Chloride Level 104, Carbon Dioxide Level 23, Anion Gap 8, Blood Urea Nitrogen 24H, Creatinine 2.7H, Estimat Glomerular Filtration Rate 22.5, Glucose Level 88, Calcium Level 8.6 Height (Feet): 5 Height (Inches): 5.00 Weight (Pounds): 85 General Appearance: confused, other - cachectic appearing EENT: PERRL/EOMI Cardiovascular: normal rate, regular rhythm Respiratory/Chest: lungs clear, normal breath sounds, no respiratory distress Abdomen: soft Extremities: other - muscle wasting, cachexia Neurologic: other - Dementia Roxanna Ugarte D.O. January 14, 2020 11:40
[2020-01-14 12:00] VITALS: BP 98/49
--- NOTE | 2020-01-14 12:06 | Nephrology Progress Note ---
Assessment/Plan Plan #ESRD on MWF via R IJ catheter #possible chest pain ? #possible sepsis #possible aspiration pneumonia #Possible pneumonia #Advanced dementia - next HD on thursday - vancomycin, cefepime adn flagyl - follow cx - ID eval - pulm eval - breathing tx prn - next Hd on thursday - check PTH/vit D - check iron panel ferritin - monitor mag, phos, BMP daily Time spent 70 min, greater than 50% spent on care coordination and counseling Subjective ROS Limited/Unobtainable: Yes Subjective evaluated by I started on antibiotics vitals stable Objective Objective Last 24 Hour Vital Signs Date Time Temp Pulse Resp B/P (MAP) Pulse Ox O2 Delivery O2 Flow Rate FiO2 01/14/20 08:00 97.0 79 20 101/51 (68) 92 01/14/20 08:00 74 01/14/20 04:00 72 01/14/20 04:00 98.1 86 20 110/58 (75) 95 01/14/20 00:00 98.6 93 20 121/58 (79) 95 01/13/20 23:34 Nasal Cannula 2.0 01/13/20 20:00 98.4 92 20 116/57 (76) 95 01/13/20 18:55 97.9 78 18 95/51 100 Room Air 01/13/20 16:15 100 18 Room Air 01/13/20 16:15 97.9 18 93/52 100 Room Air 01/13/20 15:57 97.9 100 18 93/52 (66) 100 Room Air Laboratory Tests 01/13/20 15:59: Arterial Blood pH 7.354, Arterial Blood Partial Pressure CO2 44.2, Arterial Blood Partial Pressure O2 92.1, Arterial Blood HCO3 24.1, Arterial Blood Oxygen Saturation 96.4, Arterial Blood Base Excess -1.6, Yimi Test Positive 01/13/20 16:45: White Blood Count 11.0H, Red Blood Count 4.27L, Hemoglobin 12.6L, Hematocrit 43.9, Mean Corpuscular Volume 103H, Mean Corpuscular Hemoglobin 29.6, Mean Corpuscular Hemoglobin Concent 28.8L, Red Cell Distribution Width 22.5H, Platelet Count 93L, Mean Platelet Volume 11.3H, Neutrophils (%) (Auto) , Lymphocytes (%) (Auto) , Monocytes (%) (Auto) , Eosinophils (%) (Auto) , Basophils (%) (Auto) , Differential Total Cells Counted 100, Neutrophils % ( Manual) 93H, Lymphocytes % (Manual) 3L, Monocytes % (Manual) 3, Eosinophils % ( Manual) 0, Basophils % (Manual) 0, Band Neutrophils 1, Platelet Estimate DecreasedL, Platelet Morphology Normal, Polychromasia 1+, Hypochromasia 1+, Anisocytosis 3+, Macrocytosis 2+, Prothrombin Time 14.8H, Prothromb Time International Ratio 1.4H, Activated Partial Thromboplast Time 35H, D-Dimer 2.03H , Sodium Level 143, Potassium Level 4.9, Chloride Level 109H, Carbon Dioxide Level 25, Anion Gap 9, Blood Urea Nitrogen 11, Creatinine 2.3H, Estimat Glomerular Filtration Rate 27.1, Glucose Level 72L, Lactic Acid Level 1.70, Calcium Level 8.0L, Magnesium Level 1.9, Ferritin 214, Total Bilirubin 0.8, Aspartate Amino Transf (AST/SGOT) 36, Alanine Aminotransferase (ALT/SGPT) 10L, Alkaline Phosphatase 68, Lactate Dehydrogenase 307H, Total Creatine Kinase 62, Creatine Kinase MB 0.7, Creatine Kinase MB Relative Index 1.1, Troponin I 0.010 , C-Reactive Protein, Quantitative 5.7H, Pro-B-Type Natriuretic Peptide > 13995H , Total Protein 6.9, Albumin 1.8L, Globulin 5.1, Albumin/Globulin Ratio 0.4L 01/14/20 07:45: White Blood Count 11.4H, Red Blood Count 4.45L, Hemoglobin 13.2L, Hematocrit 42.2, Mean Corpuscular Volume 95, Mean Corpuscular Hemoglobin 29.8, Mean Corpuscular Hemoglobin Concent 31.3L, Red Cell Distribution Width 22.3H, Platelet Count 89L, Mean Platelet Volume 9.3, Neutrophils (%) (Auto) , Lymphocytes (%) (Auto) , Monocytes (%) (Auto) , Eosinophils (%) (Auto) , Basophils (%) (Auto) , Differential Total Cells Counted 100, Neutrophils % ( Manual) 97H, Lymphocytes % (Manual) 1L, Monocytes % (Manual) 2, Eosinophils % ( Manual) 0, Basophils % (Manual) 0, Band Neutrophils 0, Platelet Estimate DecreasedL, Platelet Morphology Normal, Anisocytosis 3+, Sodium Level 139, Potassium Level 5.1, Chloride Level 104, Carbon Dioxide Level 23, Anion Gap 8, Blood Urea Nitrogen 24H, Creatinine 2.7H, Estimat Glomerular Filtration Rate 22.5, Glucose Level 88, Calcium Level 8.6 Height (Feet): 5 Height (Inches): 5.00 Weight (Pounds): 85 Objective General Appearance: no apparent distress Lines, tubes and drains: peripheral HEENT: normocephalic, atraumatic Neck: non-tender Respiratory/Chest: chest wall non-tender, lungs clear Cardiovascular/Chest: normal peripheral pulses, no JVD Abdomen: normal bowel sounds Extremities: trace edema Skin Exam: no diaphoresis Neurologic: disoriented Ying Londono M.D. January 14, 2020 12:06
[2020-01-14 16:00] VITALS: BP 99/52
--- NOTE | 2020-01-14 18:08 | NUR ---
NURSE NOTES: Per Dr. Londono wound consult with Dr. Damon, speech evaluation. Order noted, entered, carried out. Will continue to monitor.
--- NOTE | 2020-01-14 19:15 | Consultation ---
DATE OF CONSULTATION: 01/14/2020 PULMONARY CONSULTATION CONSULTING PHYSICIAN: Alex Rivera MD. HISTORY OF PRESENT ILLNESS: This is an 84-year-old male with history of ESRD on dialysis and has dementia. He came to the hospital with chest pain. The patient reported kind of chest pain and he started coughing up discolored phlegm. The patient cannot provide further history. X-ray of chest confirmed right lung pneumonia. PAST HISTORY: Notable for ESRD on dialysis, chronic thrombocytopenia, dementia. MEDICATIONS: His list of current medications includes DuoNebs, Flagyl, Zofran, vancomycin, subcu heparin, cefepime, and Tylenol. REVIEW OF SYSTEMS: Unreliable. ALLERGIES: None. PHYSICAL EXAMINATION: VITAL SIGNS: Blood pressure 101/50, heart rate 76, respiratory rate 20, he is afebrile, O2 saturation 96% on 2 L of oxygen. GENERAL: Reveals elderly male. HEENT: Unremarkable. CHEST: Shows decreased breath sounds at the right base ABDOMEN: Soft. EXTREMITIES: There is no edema. LABORATORY AND DIAGNOSTIC DATA: White count 11.4, hemoglobin 13, platelet count is . Creatinine 2.7. LDH 307. Troponin negative. Coags show INR of 1.4. D-dimer 2.0. ABG, pH 7.35, pCO2 of 44, pO2 of 92. X-ray of chest shows PermCath in place in right chest, right lung infiltrate noted, and hyperinflation noted. IMPRESSION: 1. Pneumonia. 2. Dementia. 3. ESRD, on dialysis. DISCUSSION: Admit to the hospital. Order oxygen and pulmonary hygiene. We will continue home medications. Broad-spectrum antibiotics. We will follow carefully. Alex Rivera M.D. DR: BETO JOB#: [id number] CC:
--- NOTE | 2020-01-14 19:44 | NUR ---
HAND-OFF: Report given to WINDY Mckoy. Endorsed plan of care.
--- NOTE | 2020-01-14 19:52 | NUR ---
NURSE NOTES: Received report from WINDY Mercado. Patient is asleep lying semi-jin's; resting comfortably. Arousable to verbal and tactile stimuli. No signs of acute distress noted; denies pain at this time. AOx1-2; able to make needs known. Primarily Farsi speaking. Checked IV site; patent and flushed. No erythema, bleeding, or infiltration noted. Right upper chest permcath in place for dialysis access. Bed at lowest position, brakes on, siderails up x3. Call light within reach. Will continue to monitor.
[2020-01-14 20:00] VITALS: BP 92/54
[2020-01-15] VITALS: BP 96/52
[2020-01-15 04:00] VITALS: BP 119/50
--- NOTE | 2020-01-15 07:05 | NUR ---
HAND-OFF: Report given to WINDY Mercado. Patient is asleep lying semi-jin's; resting comfortably. In stable condition.
--- NOTE | 2020-01-15 07:35 | NUR ---
NURSE NOTES Received report from WINDY Mckoy. Pt asleep comfortably in bed. No s/s of acute respiratory and cardiac distress. Permacath on right upper chest, dressing dry and intact. SL on left wrist 22G patent. Bed low, side rails up x3, bed alarm on and call light within reach. Will continue plan of care.
[2020-01-15 07:54] LABS: HEMATOCRIT 36.6 % (42.0-52.0); HEMOGLOBIN 11.5 G/DL (14.2-18.0); MEAN CORPUSCULAR VOLUME 95 FL (80-99); PLATELET COUNT 91 K/UL (150-450); RED BLOOD COUNT 3.85 M/UL (4.70-6.10); RED CELL DISTRIBUTION WIDTH 21.8 % (11.6-14.8); WHITE BLOOD COUNT 14.2 K/UL (4.8-10.8)
[2020-01-15 08:00] VITALS: BP 97/48
[2020-01-15 08:14] LABS: ALANINE AMINOTRANSFERASE 7 U/L (12-78); ALBUMIN 1.7 G/DL (3.4-5.0); ALBUMIN/GLOBULIN RATIO 0.4 (1.0-2.7); ALKALINE PHOSPHATASE 62 U/L (46-116); ANION GAP 12 mmol/L (5-15); ASPARTATE AMINO TRANSFERASE 14 U/L (15-37); BILIRUBIN,TOTAL 0.6 MG/DL (0.2-1.0); BLOOD UREA NITROGEN 26 mg/dL (7-18); CALCIUM 7.8 MG/DL (8.5-10.1); CARBON DIOXIDE 24 MMOL/L (21-32); CHLORIDE 112 MMOL/L (98-107); CREATININE 3.5 MG/DL (0.55-1.30); POTASSIUM 3.9 MMOL/L (3.5-5.1); SODIUM 147 MMOL/L (136-145)
[2020-01-15 08:16] LABS: % IRON SATURATION 70 % (15-50); IRON 28 ug/dL (50-175); TOTAL IRON BINDING CAPACITY 40 ug/dL (250-450)
[2020-01-15 08:29] LABS: PHOSPHORUS 4.7 MG/DL (2.5-4.9)
[2020-01-15] MEDS: Cefepime HCl 1 GM in D5W 55 ML IVPB SCH (08:36)
[2020-01-15] MEDS: Docusate 100mg cap ORAL SCH ×2 (08:36→21:00)
[2020-01-15] MEDS ORDERED: Vancomycin 750mg/NS 275ml IVPB ONE ×2 (10:00)
--- NOTE | 2020-01-15 10:16 | Pulmonology Progress Note ---
Subjective Interval Events: None new Constitutional: Reports: no symptoms HEENT: Repors: no symptoms Respiratory: Reports: no symptoms Cardiovascular: Reports: no symptoms Gastrointestinal/Abdominal: Reports: no symptoms Genitourinary: Reports: no symptoms Allergies: Coded Allergies: LACTOSE (Unverified Allergy, Unknown, 01/13/20) Objective Last 24 Hour Vital Signs Date Time Temp Pulse Resp B/P (MAP) Pulse Ox O2 Delivery O2 Flow Rate FiO2 01/15/20 08:00 97.7 76 20 97/48 (64) 99 01/15/20 08:00 74 01/15/20 04:00 98.0 84 20 119/50 (73) 96 01/15/20 04:00 78 01/15/20 00:00 77 01/15/20 00:00 97.7 82 20 96/52 (67) 95 01/14/20 21:00 Room Air 01/14/20 20:00 98 01/14/20 20:00 96.5 97 19 92/54 (67) 98 01/14/20 16:00 120 01/14/20 16:00 96.6 75 20 99/52 (68) 93 01/14/20 12:00 81 01/14/20 12:00 97.0 61 20 98/49 (65) 96 Intake and Output 01/14/20 01/15/20 19:00 07:00 Intake Total 120 ml 100 ml Balance 120 ml 100 ml Intake Oral 120 ml IV Total 100 ml # Voids 1 1 General Appearance: no acute distress HEENT: normocephalic Respiratory: chest wall non-tender, decreased breath sounds Cardiovascular: normal peripheral pulses Abdomen: normal bowel sounds Extremities: no cyanosis Microbiology Date/Time Source Procedure Growth Status 01/13/20 16:45 Blood Blood Culture - Preliminary NO GROWTH AFTER 24 HOURS Resulted 01/13/20 16:30 Blood Blood Culture - Preliminary NO GROWTH AFTER 24 HOURS Resulted 01/13/20 16:45 Nasal Nares MRSA Culture - Final NO METHICILLIN RESISTANT STAPH AUREUS... Complete 01/13/20 16:45 Rectum - Final NO CARBAPENEM-RESISTANT ENTEROBACTERI... Complete 01/13/20 16:45 Rectum VRE Culture - Final NO VANCOMYCIN RESISTANT ENTEROCOCCUS ... Complete Laboratory Tests 01/15/20 07:35: White Blood Count 14.2H, Red Blood Count 3.85L, Hemoglobin 11.5L, Hematocrit 36.6L, Mean Corpuscular Volume 95, Mean Corpuscular Hemoglobin 29.9, Mean Corpuscular Hemoglobin Concent 31.5L, Red Cell Distribution Width 21.8H, Platelet Count 91L, Mean Platelet Volume 8.1, Neutrophils (%) (Auto) , Lymphocytes (%) (Auto) , Monocytes (%) (Auto) , Eosinophils (%) (Auto) , Basophils (%) (Auto) , Neutrophils % (Manual) [Pending], Lymphocytes % (Manual) [Pending], Platelet Estimate [Pending], Platelet Morphology [Pending], Sodium Level 147H, Potassium Level 3.9, Chloride Level 112H, Carbon Dioxide Level 24, Anion Gap 12, Blood Urea Nitrogen 26H, Creatinine 3.5H, Estimat Glomerular Filtration Rate 16.7, Glucose Level 89, Calcium Level 7.8L, Calcium (Send out) [ Pending], Phosphorus Level 4.7, Magnesium Level 1.8, Iron Level 28L, Total Iron Binding Capacity 40L, Percent Iron Saturation 70H, Unsaturated Iron Binding 12L , Ferritin 283, Total Bilirubin 0.6, Aspartate Amino Transf (AST/SGOT) 14L, Alanine Aminotransferase (ALT/SGPT) 7L, Alkaline Phosphatase 62, Total Protein 6.3L, Albumin 1.7L, Globulin 4.6, Albumin/Globulin Ratio 0.4L, Vitamin D 25- Hydroxy [Pending], 25-Hydroxy Vitamin D2 [Pending], 25-Hydroxy Vitamin D3 [ Pending], Parathyroid Hormone (Intact) [Pending], Random Vancomycin Level 12.1 Current Medications Medications (Trade) Dose Ordered Sig/Dorothy Route PRN Reason Start Time Stop Time Status Last Admin Dose Admin Acetaminophen (Tylenol) 650 mg Q4H PRN ORAL Mild Pain (Pain Scale 1-3) 01/13/20 18:45 02/12/20 18:44 Albuterol/ Ipratropium (Albuterol/ Ipratropium) 3 ml Q6H PRN HHN Shortness of Breath 01/13/20 18:45 01/18/20 18:44 Cefepime HCl 1 gm/ Dextrose 55 ml @ 110 mls/hr Q24H IVPB 01/14/20 09:00 01/21/20 08:59 01/15/20 08:36 Dextrose (Dextrose 50%) 25 ml Q30M PRN IV Hypoglycemia 01/13/20 18:45 04/12/20 18:44 Dextrose (Dextrose 50%) 50 ml Q30M PRN IV Hypoglycemia 01/13/20 18:45 04/12/20 18:44 Diphenhydramine HCl (Benadryl) 25 mg Q6H PRN ORAL Itching/Pruritis 01/13/20 18:45 02/12/20 18:44 Docusate Sodium (Colace) 100 mg EVERY 12 HOURS ORAL 01/13/20 21:00 02/12/20 20:59 01/15/20 08:36 Metronidazole 100 ml @ 100 mls/hr Q8HR IVPB 01/13/20 22:00 01/20/20 21:59 01/15/20 06:04 Ondansetron HCl (Zofran) 4 mg Q6H PRN IVP Nausea & Vomiting 01/13/20 18:45 02/12/20 18:44 Vancomycin HCl (Vanco rx to dose) 1 ea DAILY PRN MISC Per rx protocol 01/13/20 18:45 02/12/20 18:44 Vancomycin HCl 750 mg/Sodium Chloride 275 ml @ 183.333 mls/hr ONCE ONCE IVPB 01/15/20 10:00 01/15/20 11:29 Assessment/Plan Assessment/Plan IMPRESSION: 1. Pneumonia. 2. Dementia. 3. ESRD, on dialysis. DISCUSSION: Continue oxygen and pulmonary hygiene. Continue home medications. Broad-spectrum antibiotics. I will follow carefully. Alex Rivera M.D. Alex Rivera MD January 15, 2020 10:16
--- NOTE | 2020-01-15 10:55 | Diagnostic Imaging Report ---
EXAM: XR Chest, 1 View CLINICAL HISTORY: INFECT TECHNIQUE: Frontal view of the chest. COMPARISON: Chest radiograph On 01/13/2020 FINDINGS: Hardware: Right-sided central venous catheter terminates near the junction of the SVC and right atrium. Lungs/pleura: Hyperinflation of the lungs suggestive of COPD. Opacity in the right mid and lower lung may represents combination of small pleural effusion with atelectasis versus pneumonia. Heart/mediastinum: Atherosclerotic calcifications of the aorta. No cardiomegaly. Soft tissues: Unremarkable. Bones: No acute fracture. Upper abdomen: Normal. IMPRESSION: Hyperinflation of the lungs suggestive of COPD. Opacity in the right mid and lower lung may represents combination of small pleural effusion with atelectasis versus pneumonia.
--- NOTE | 2020-01-15 11:15 | Nephrology Progress Note ---
Assessment/Plan Plan #ESRD on MWF via R IJ catheter #possible chest pain ? #possible sepsis #possible aspiration pneumonia #Possible pneumonia #Advanced dementia discussed with -. plan for Dc home early this week HD tomorrow - next HD on thursday - vancomycin, cefepime adn flagyl - follow cx - ID eval - pulm eval - breathing tx prn - next Hd on thursday - check PTH/vit D - check iron panel ferritin - monitor mag, phos, BMP daily Time spent 70 min, greater than 50% spent on care coordination and counseling Subjective ROS Limited/Unobtainable: Yes Subjective evaluated by ID started on antibiotics vitals stable discussed with -. plan for Dc home early this week HD tomorrow Objective Objective Last 24 Hour Vital Signs Date Time Temp Pulse Resp B/P (MAP) Pulse Ox O2 Delivery O2 Flow Rate FiO2 01/15/20 08:00 97.7 76 20 97/48 (64) 99 01/15/20 08:00 74 01/15/20 04:00 98.0 84 20 119/50 (73) 96 01/15/20 04:00 78 01/15/20 00:00 77 01/15/20 00:00 97.7 82 20 96/52 (67) 95 01/14/20 21:00 Room Air 01/14/20 20:00 98 01/14/20 20:00 96.5 97 19 92/54 (67) 98 01/14/20 16:00 120 01/14/20 16:00 96.6 75 20 99/52 (68) 93 01/14/20 12:00 81 01/14/20 12:00 97.0 61 20 98/49 (65) 96 Intake and Output 01/14/20 01/15/20 19:00 07:00 Intake Total 120 ml 100 ml Balance 120 ml 100 ml Intake Oral 120 ml IV Total 100 ml # Voids 1 1 Laboratory Tests 01/15/20 07:35: White Blood Count 14.2H, Red Blood Count 3.85L, Hemoglobin 11.5L, Hematocrit 36.6L, Mean Corpuscular Volume 95, Mean Corpuscular Hemoglobin 29.9, Mean Corpuscular Hemoglobin Concent 31.5L, Red Cell Distribution Width 21.8H, Platelet Count 91L, Mean Platelet Volume 8.1, Neutrophils (%) (Auto) , Lymphocytes (%) (Auto) , Monocytes (%) (Auto) , Eosinophils (%) (Auto) , Basophils (%) (Auto) , Differential Total Cells Counted 100, Neutrophils % ( Manual) 92H, Lymphocytes % (Manual) 6L, Monocytes % (Manual) 2, Eosinophils % ( Manual) 0, Basophils % (Manual) 0, Band Neutrophils 0, Platelet Estimate DecreasedL, Platelet Morphology Normal, Hypochromasia 1+, Anisocytosis 3+, Sodium Level 147H, Potassium Level 3.9, Chloride Level 112H, Carbon Dioxide Level 24, Anion Gap 12, Blood Urea Nitrogen 26H, Creatinine 3.5H, Estimat Glomerular Filtration Rate 16.7, Glucose Level 89, Calcium Level 7.8L, Calcium ( Send out) [Pending], Phosphorus Level 4.7, Magnesium Level 1.8, Iron Level 28L, Total Iron Binding Capacity 40L, Percent Iron Saturation 70H, Unsaturated Iron Binding 12L, Ferritin 283, Total Bilirubin 0.6, Aspartate Amino Transf (AST/SGOT ) 14L, Alanine Aminotransferase (ALT/SGPT) 7L, Alkaline Phosphatase 62, Total Protein 6.3L, Albumin 1.7L, Globulin 4.6, Albumin/Globulin Ratio 0.4L, Vitamin D 25-Hydroxy [Pending], 25-Hydroxy Vitamin D2 [Pending], 25-Hydroxy Vitamin D3 [ Pending], Parathyroid Hormone (Intact) [Pending], Random Vancomycin Level 12.1 Height (Feet): 5 Height (Inches): 5.00 Weight (Pounds): 85 Objective General Appearance: no apparent distress Lines, tubes and drains: peripheral HEENT: normocephalic, atraumatic Neck: non-tender Respiratory/Chest: chest wall non-tender, lungs clear Cardiovascular/Chest: normal peripheral pulses, no JVD Abdomen: normal bowel sounds Extremities: trace edema Skin Exam: no diaphoresis Neurologic: disoriented Ying Londono M.D. January 15, 2020 11:15
[2020-01-15 12:00] VITALS: BP 116/56
--- NOTE | 2020-01-15 12:17 | Internal Med Progress Note ---
Subjective Date of Service: January 15, 2020 Physician Name Roxanna Ugarte Attending Physician Ying Londono M.D. Current Medications Medications (Trade) Dose Ordered Sig/Dorothy Route PRN Reason Start Time Stop Time Status Last Admin Dose Admin Acetaminophen (Tylenol) 650 mg Q4H PRN ORAL Mild Pain (Pain Scale 1-3) 01/13/20 18:45 02/12/20 18:44 Albuterol/ Ipratropium (Albuterol/ Ipratropium) 3 ml Q6H PRN HHN Shortness of Breath 01/13/20 18:45 01/18/20 18:44 Cefepime HCl 1 gm/ Dextrose 55 ml @ 110 mls/hr Q24H IVPB 01/14/20 09:00 01/21/20 08:59 01/15/20 08:36 Dextrose (Dextrose 50%) 25 ml Q30M PRN IV Hypoglycemia 01/13/20 18:45 04/12/20 18:44 Dextrose (Dextrose 50%) 50 ml Q30M PRN IV Hypoglycemia 01/13/20 18:45 04/12/20 18:44 Diphenhydramine HCl (Benadryl) 25 mg Q6H PRN ORAL Itching/Pruritis 01/13/20 18:45 02/12/20 18:44 Docusate Sodium (Colace) 100 mg EVERY 12 HOURS ORAL 01/13/20 21:00 02/12/20 20:59 01/15/20 08:36 Metronidazole 100 ml @ 100 mls/hr Q8HR IVPB 01/13/20 22:00 01/20/20 21:59 01/15/20 06:04 Ondansetron HCl (Zofran) 4 mg Q6H PRN IVP Nausea & Vomiting 01/13/20 18:45 02/12/20 18:44 Vancomycin HCl (Vanco rx to dose) 1 ea DAILY PRN MISC Per rx protocol 01/13/20 18:45 02/12/20 18:44 Allergies: Coded Allergies: LACTOSE (Unverified Allergy, Unknown, 01/13/20) Subjective Patient is pleasantly demented; Will f/u with attending to see if swallow eval should be performed. 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 normal Skin: warm/dry Laboratory Tests Test 01/15/20 07:35 White Blood Count 14.2 K/UL (4.8-10.8) H Red Blood Count 3.85 M/UL (4.70-6.10) L Hemoglobin 11.5 G/DL (14.2-18.0) L Hematocrit 36.6 % (42.0-52.0) L Mean Corpuscular Volume 95 FL (80-99) Mean Corpuscular Hemoglobin 29.9 PG (27.0-31.0) Mean Corpuscular Hemoglobin Concent 31.5 G/DL (32.0-36.0) L Red Cell Distribution Width 21.8 % (11.6-14.8) H Platelet Count 91 K/UL (150-450) L Mean Platelet Volume 8.1 FL (6.5-10.1) Neutrophils (%) (Auto) % (45.0-75.0) Lymphocytes (%) (Auto) % (20.0-45.0) Monocytes (%) (Auto) % (1.0-10.0) Eosinophils (%) (Auto) % (0.0-3.0) Basophils (%) (Auto) % (0.0-2.0) Differential Total Cells Counted 100 Neutrophils % (Manual) 92 % (45-75) H Lymphocytes % (Manual) 6 % (20-45) L Monocytes % (Manual) 2 % (1-10) Eosinophils % (Manual) 0 % (0-3) Basophils % (Manual) 0 % (0-2) Band Neutrophils 0 % (0-8) Platelet Estimate Decreased L Platelet Morphology Normal Hypochromasia 1+ Anisocytosis 3+ Sodium Level 147 MMOL/L (136-145) H Potassium Level 3.9 MMOL/L (3.5-5.1) Chloride Level 112 MMOL/L (98-107) H Carbon Dioxide Level 24 MMOL/L (21-32) Anion Gap 12 mmol/L (5-15) Blood Urea Nitrogen 26 mg/dL (7-18) H Creatinine 3.5 MG/DL (0.55-1.30) H Estimat Glomerular Filtration Rate 16.7 mL/min (>60) Glucose Level 89 MG/DL (74-106) Calcium Level 7.8 MG/DL (8.5-10.1) L Calcium (Send out) Pending Phosphorus Level 4.7 MG/DL (2.5-4.9) Magnesium Level 1.8 MG/DL (1.8-2.4) Iron Level 28 ug/dL (50-175) L Total Iron Binding Capacity 40 ug/dL (250-450) L Percent Iron Saturation 70 % (15-50) H Unsaturated Iron Binding 12 ug/dL (112-346) L Ferritin 283 NG/ML (8-388) Total Bilirubin 0.6 MG/DL (0.2-1.0) Aspartate Amino Transf (AST/SGOT) 14 U/L (15-37) L Alanine Aminotransferase (ALT/SGPT) 7 U/L (12-78) L Alkaline Phosphatase 62 U/L (46-116) Total Protein 6.3 G/DL (6.4-8.2) L Albumin 1.7 G/DL (3.4-5.0) L Globulin 4.6 g/dL Albumin/Globulin Ratio 0.4 (1.0-2.7) L Vitamin D 25-Hydroxy Pending 25-Hydroxy Vitamin D2 Pending 25-Hydroxy Vitamin D3 Pending Parathyroid Hormone (Intact) Pending Random Vancomycin Level 12.1 ug/mL Microbiology Date/Time Source Procedure Growth Status 01/13/20 16:45 Blood Blood Culture - Preliminary NO GROWTH AFTER 24 HOURS Resulted 01/13/20 16:30 Blood Blood Culture - Preliminary NO GROWTH AFTER 24 HOURS Resulted 01/13/20 16:45 Nasal Nares MRSA Culture - Final NO METHICILLIN RESISTANT STAPH AUREUS... Complete 01/13/20 16:45 Rectum - Final NO CARBAPENEM-RESISTANT ENTEROBACTERI... Complete 01/13/20 16:45 Rectum VRE Culture - Final NO VANCOMYCIN RESISTANT ENTEROCOCCUS ... Complete Intake and Output 01/14/20 01/15/20 19:00 07:00 Intake Total 120 ml 100 ml Balance 120 ml 100 ml Intake Oral 120 ml IV Total 100 ml # Voids 1 1 Assessment/Plan Assessment/Plan Assessment #Aspiration PNA--> CXR w/ Right LL infiltrate #R/O COVID #ESRD on HD #Thrombocytopenia #Dementia Plan Appreciate Consultants Continue Broad Spectrum w/ Vancomycin , Flagyl and Cefepime Marti Cx Pending Will consider swallow eval given concern for aspiration PNA Pending COVID test, predictive markers will be trended Continue HD per nephro Monitor platelets, if drops below 50 hold chemical DVT ppx Obtain and Reconcile home meds Diet as tolerated 01/14: F/U regarding swallow eval to ensure no aspiraton Roxanna Ugarte D.O. January 15, 2020 12:17
--- NOTE | 2020-01-15 13:00 | NUR ---
NURSE NOTES: Called [facility] nephrology [phone] and spoke w/ DEVEN. Scheduled pt for HD tomorrow 01/15. Per Dr. Londono
--- NOTE | 2020-01-15 14:15 | Consultation ---
History of Present Illness General Date patient seen: January 15, 2020 Time patient seen: 18:52 Chief Complaint: Dyspnea/Respdistress Reason for Consultation: ESRD on HD Present Illness HPI Patient is an 84-year-old male past medical history of end-stage renal disease on dialysis Thursday and dementia who was brought in by EMS from his dialysis center for possible chest pain. Per EMS patient was about 1 hour into his dialysis when he started kind of pounding on his chest like he wanted to clear his chest and brought up some thick yellow-green phlegm. Info obtained from EMR as patient cannot provide any history due to dementia. CXR showed Mild hazy right basilar infiltrate Allergies: Coded Allergies: LACTOSE (Unverified Allergy, Unknown, 01/13/20) Medication History Scheduled Ergocalciferol (Vitamin D2) (Vitamin D2), 50,000 UNIT PO QWEEK, (Reported) Ferrous Sulfate* (Ferrous Sulfate*), 325 MG ORAL DAILY, (Reported) No Known Medications* (NKM - No Known Medications*), 0 ., (Reported) Olanzapine* (Zyprexa*), 2.5 MG ORAL DAILY, (Reported) Pantoprazole* (Protonix*), 40 MG ORAL DAILY, (Reported) Sodium Bicarbonate* (Nahco3*), 325 MG PO BID, (Reported) Miscellaneous Medications Folic Acid/Vitamin B Comp W-C (Neris-Kelsey Tablet), 0.8 MG PO, (Reported) Patient History Healthcare decision maker Resuscitation status Advanced Directive on File Review of Systems Constitutional: Reports: no symptoms ENT: Reports: no symptoms Respiratory: Reports: shortness of breath Cardiovascular: Reports: chest pain, edema Gastrointestinal: Reports: no symptoms Genitourinary: Reports: no symptoms Musculoskeletal: Reports: no symptoms Skin: Reports: no symptoms Psychiatric: Reports: no symptoms Neurological: Reports: no symptoms Endocrine: Reports: no symptoms Hematologic/Lymphatic: Reports: no symptoms Physical Exam General Appearance: no apparent distress, lethargic, confused Lines, tubes and drains: peripheral, shunt, dialysis access HEENT: normocephalic, atraumatic, anicteric, mucous membranes moist, PERRL Neck: non-tender, normal alignment, supple, normal inspection Respiratory/Chest: chest wall non-tender, no respiratory distress, no accessory muscle use, crackles/rales Cardiovascular/Chest: normal peripheral pulses, normal rate, regular rhythm Abdomen: normal bowel sounds, non tender, soft, no organomegaly, no mass Skin Exam: warm/dry, cyanotic 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, no motor/sensory deficits Last 24 Hour Vital Signs Date Time Temp Pulse Resp B/P (MAP) Pulse Ox O2 Delivery O2 Flow Rate FiO2 01/15/20 12:00 97.5 76 20 116/56 (76) 95 01/15/20 12:00 83 01/15/20 09:00 Room Air Room Air 01/15/20 08:00 97.7 76 20 97/48 (64) 99 01/15/20 08:00 74 01/15/20 04:00 98.0 84 20 119/50 (73) 96 01/15/20 04:00 78 01/15/20 00:00 77 01/15/20 00:00 97.7 82 20 96/52 (67) 95 01/14/20 21:00 Room Air 01/14/20 20:00 98 01/14/20 20:00 96.5 97 19 92/54 (67) 98 01/14/20 16:00 120 01/14/20 16:00 96.6 75 20 99/52 (68) 93 Intake and Output 01/14/20 01/15/20 19:00 07:00 Intake Total 120 ml 100 ml Balance 120 ml 100 ml Intake Oral 120 ml IV Total 100 ml # Voids 1 1 Laboratory Tests Test 01/15/20 07:35 White Blood Count 14.2 K/UL (4.8-10.8) H Red Blood Count 3.85 M/UL (4.70-6.10) L Hemoglobin 11.5 G/DL (14.2-18.0) L Hematocrit 36.6 % (42.0-52.0) L Mean Corpuscular Volume 95 FL (80-99) Mean Corpuscular Hemoglobin 29.9 PG (27.0-31.0) Mean Corpuscular Hemoglobin Concent 31.5 G/DL (32.0-36.0) L Red Cell Distribution Width 21.8 % (11.6-14.8) H Platelet Count 91 K/UL (150-450) L Mean Platelet Volume 8.1 FL (6.5-10.1) Neutrophils (%) (Auto) % (45.0-75.0) Lymphocytes (%) (Auto) % (20.0-45.0) Monocytes (%) (Auto) % (1.0-10.0) Eosinophils (%) (Auto) % (0.0-3.0) Basophils (%) (Auto) % (0.0-2.0) Differential Total Cells Counted 100 Neutrophils % (Manual) 92 % (45-75) H Lymphocytes % (Manual) 6 % (20-45) L Monocytes % (Manual) 2 % (1-10) Eosinophils % (Manual) 0 % (0-3) Basophils % (Manual) 0 % (0-2) Band Neutrophils 0 % (0-8) Platelet Estimate Decreased L Platelet Morphology Normal Hypochromasia 1+ Anisocytosis 3+ Sodium Level 147 MMOL/L (136-145) H Potassium Level 3.9 MMOL/L (3.5-5.1) Chloride Level 112 MMOL/L (98-107) H Carbon Dioxide Level 24 MMOL/L (21-32) Anion Gap 12 mmol/L (5-15) Blood Urea Nitrogen 26 mg/dL (7-18) H Creatinine 3.5 MG/DL (0.55-1.30) H Estimat Glomerular Filtration Rate 16.7 mL/min (>60) Glucose Level 89 MG/DL (74-106) Calcium Level 7.8 MG/DL (8.5-10.1) L Calcium (Send out) Pending Phosphorus Level 4.7 MG/DL (2.5-4.9) Magnesium Level 1.8 MG/DL (1.8-2.4) Iron Level 28 ug/dL (50-175) L Total Iron Binding Capacity 40 ug/dL (250-450) L Percent Iron Saturation 70 % (15-50) H Unsaturated Iron Binding 12 ug/dL (112-346) L Ferritin 283 NG/ML (8-388) Total Bilirubin 0.6 MG/DL (0.2-1.0) Aspartate Amino Transf (AST/SGOT) 14 U/L (15-37) L Alanine Aminotransferase (ALT/SGPT) 7 U/L (12-78) L Alkaline Phosphatase 62 U/L (46-116) Total Protein 6.3 G/DL (6.4-8.2) L Albumin 1.7 G/DL (3.4-5.0) L Globulin 4.6 g/dL Albumin/Globulin Ratio 0.4 (1.0-2.7) L Vitamin D 25-Hydroxy Pending 25-Hydroxy Vitamin D2 Pending 25-Hydroxy Vitamin D3 Pending Parathyroid Hormone (Intact) Pending Random Vancomycin Level 12.1 ug/mL Height (Feet): 5 Height (Inches): 5.00 Weight (Pounds): 85 Medications Current Medications Medications (Trade) Dose Ordered Sig/Dorothy Route PRN Reason Start Time Stop Time Status Last Admin Dose Admin Acetaminophen (Tylenol) 650 mg Q4H PRN ORAL Mild Pain (Pain Scale 1-3) 01/13/20 18:45 02/12/20 18:44 Albuterol/ Ipratropium (Albuterol/ Ipratropium) 3 ml Q6H PRN HHN Shortness of Breath 01/13/20 18:45 01/18/20 18:44 Cefepime HCl 1 gm/ Dextrose 55 ml @ 110 mls/hr Q24H IVPB 01/14/20 09:00 01/21/20 08:59 01/15/20 08:36 Dextrose (Dextrose 50%) 25 ml Q30M PRN IV Hypoglycemia 01/13/20 18:45 04/12/20 18:44 Dextrose (Dextrose 50%) 50 ml Q30M PRN IV Hypoglycemia 01/13/20 18:45 04/12/20 18:44 Diphenhydramine HCl (Benadryl) 25 mg Q6H PRN ORAL Itching/Pruritis 01/13/20 18:45 02/12/20 18:44 Docusate Sodium (Colace) 100 mg EVERY 12 HOURS ORAL 01/13/20 21:00 02/12/20 20:59 01/15/20 08:36 Metronidazole 100 ml @ 100 mls/hr Q8HR IVPB 01/13/20 22:00 01/20/20 21:59 01/15/20 06:04 Ondansetron HCl (Zofran) 4 mg Q6H PRN IVP Nausea & Vomiting 01/13/20 18:45 02/12/20 18:44 Vancomycin HCl (Vanco rx to dose) 1 ea DAILY PRN MISC Per rx protocol 01/13/20 18:45 02/12/20 18:44 Assessment/Plan Status: stable Assessment/Plan: ASSESSMENT: Right PNA ESRD Chest pain Dementia Thrombocytopenia COPD PLAN: - IV abx, follow cultures -No indication for cath/stress given advanced age and lack of ischemic findings -Pulmonary toilet, Duonebs, steroids for COPD -Hold aspirin given low platelets -Cardiac stable - no further work up in house Stefan Rapp MD January 15, 2020 14:15
--- NOTE | 2020-01-15 14:21 | Consultation ---
History of Present Illness General Date patient seen: January 15, 2020 Reason for Hospitalization: Dyspnea/Respdistress Present Illness HPI This is a 84-year-old male past medical history of end-stage renal disease on dialysis Thursday and dementia who was brought in by EMS from his dialysis center for possible chest pain. Per EMS patient was about 1 hour into his dialysis when he started kind of pounding on his chest like he wanted to clear his chest and brought up some thick yellow-green phlegm. Patient is Farsi speaking. I attempted to speak with him in Farsi and he is not responsive. Unable to obtain further history at this time. Noted to have leukocytosis, abnormal labs, malnutrition, decubitus ulcers. surgery called to evaluate and assist with care. patient seen, chart reviewed patient examine.d Allergies: Coded Allergies: LACTOSE (Unverified Allergy, Unknown, 01/13/20) COVID-19 Screening Contact w/high risk pt: Yes Recent Travel to affected area: No Experienced COVID-19 symptoms?: Yes COVID-19 symptoms experienced: Shortness of Breath, Cough Medication History Scheduled Ergocalciferol (Vitamin D2) (Vitamin D2), 50,000 UNIT PO QWEEK, (Reported) Ferrous Sulfate* (Ferrous Sulfate*), 325 MG ORAL DAILY, (Reported) No Known Medications* (NKM - No Known Medications*), 0 ., (Reported) Olanzapine* (Zyprexa*), 2.5 MG ORAL DAILY, (Reported) Pantoprazole* (Protonix*), 40 MG ORAL DAILY, (Reported) Sodium Bicarbonate* (Nahco3*), 325 MG PO BID, (Reported) Miscellaneous Medications Folic Acid/Vitamin B Comp W-C (Neris-Kelsey Tablet), 0.8 MG PO, (Reported) Patient History Limited by: age, medical condition History Provided By: Medical Record, PMD Healthcare decision maker Resuscitation status Advanced Directive on File Past Medical/Surgical History Past Medical/Surgical History: (1) Severe protein-calorie malnutrition (2) Decubitus skin ulcer (3) Leukocytosis (4) Bleeding (5) Chronic renal failure (6) Suspected COVID-19 virus infection (7) Pneumonia Review of Systems Review of Symptoms General ROS: no weight loss or fever Psychological ROS: no depression or mood changes, no memory loss Ophthalmic ROS: no visual changes or eye irritation ENT ROS: no nasal congestion, hearing loss, dizziness Allergy and Immunology ROS: no allergic symptoms or urticaria Hematological and Lymphatic ROS: no swollen glands, unusual bleeding or bruising Endocrine ROS: no polyuria, polydipsia, weight changes, temperature intolerance Respiratory ROS: no cough, shortness of breath, or wheezing Cardiovascular ROS: no chest pain or dyspnea on exertion Gastrointestinal ROS: denies abdominal pain, bright red blood in stool. Musculoskeletal ROS: no myalgias or arthralgias Neurological ROS: no TIA or stroke symptoms Dermatological ROS: no new or changing skin lesions, rashes or pruritis limited given medical condition Physical Exam Physical Exam General appearance: alert, no distress, appears stated age Head: Normocephalic, without obvious abnormality, atraumatic Eyes: conjunctivae/corneas clear. PERRL, EOM's intact. Fundi benign Throat: Lips, mucosa, and tongue normal. Teeth and gums normal Neck: supple, symmetrical, trachea midline, no adenopathy, thyroid: not enlarged, symmetric, no tenderness/mass/nodules, no carotid bruit and no JVD Lungs: clear to auscultation bilaterally Heart: regular rate and rhythm, S1, S2 normal, no murmur, click, rub or gallop Abdomen: soft, non-tender. Bowel sounds normal. No masses, no organomegaly Extremities: extremities normal, atraumatic, no cyanosis or edema Pulses: 2+ and symmetric Skin: Skin color, texture, turgor normal. No rashes or lesions Neurologic: Grossly normal Last 24 Hour Vital Signs Date Time Temp Pulse Resp B/P (MAP) Pulse Ox O2 Delivery O2 Flow Rate FiO2 01/15/20 12:00 97.5 76 20 116/56 (76) 95 01/15/20 12:00 83 01/15/20 09:00 Room Air Room Air 01/15/20 08:00 97.7 76 20 97/48 (64) 99 01/15/20 08:00 74 01/15/20 04:00 98.0 84 20 119/50 (73) 96 01/15/20 04:00 78 01/15/20 00:00 77 01/15/20 00:00 97.7 82 20 96/52 (67) 95 01/14/20 21:00 Room Air 01/14/20 20:00 98 01/14/20 20:00 96.5 97 19 92/54 (67) 98 01/14/20 16:00 120 01/14/20 16:00 96.6 75 20 99/52 (68) 93 Intake and Output 01/14/20 01/15/20 19:00 07:00 Intake Total 120 ml 100 ml Balance 120 ml 100 ml Intake Oral 120 ml IV Total 100 ml # Voids 1 1 Laboratory Tests Test 01/15/20 07:35 White Blood Count 14.2 K/UL (4.8-10.8) H Red Blood Count 3.85 M/UL (4.70-6.10) L Hemoglobin 11.5 G/DL (14.2-18.0) L Hematocrit 36.6 % (42.0-52.0) L Mean Corpuscular Volume 95 FL (80-99) Mean Corpuscular Hemoglobin 29.9 PG (27.0-31.0) Mean Corpuscular Hemoglobin Concent 31.5 G/DL (32.0-36.0) L Red Cell Distribution Width 21.8 % (11.6-14.8) H Platelet Count 91 K/UL (150-450) L Mean Platelet Volume 8.1 FL (6.5-10.1) Neutrophils (%) (Auto) % (45.0-75.0) Lymphocytes (%) (Auto) % (20.0-45.0) Monocytes (%) (Auto) % (1.0-10.0) Eosinophils (%) (Auto) % (0.0-3.0) Basophils (%) (Auto) % (0.0-2.0) Differential Total Cells Counted 100 Neutrophils % (Manual) 92 % (45-75) H Lymphocytes % (Manual) 6 % (20-45) L Monocytes % (Manual) 2 % (1-10) Eosinophils % (Manual) 0 % (0-3) Basophils % (Manual) 0 % (0-2) Band Neutrophils 0 % (0-8) Platelet Estimate Decreased L Platelet Morphology Normal Hypochromasia 1+ Anisocytosis 3+ Sodium Level 147 MMOL/L (136-145) H Potassium Level 3.9 MMOL/L (3.5-5.1) Chloride Level 112 MMOL/L (98-107) H Carbon Dioxide Level 24 MMOL/L (21-32) Anion Gap 12 mmol/L (5-15) Blood Urea Nitrogen 26 mg/dL (7-18) H Creatinine 3.5 MG/DL (0.55-1.30) H Estimat Glomerular Filtration Rate 16.7 mL/min (>60) Glucose Level 89 MG/DL (74-106) Calcium Level 7.8 MG/DL (8.5-10.1) L Calcium (Send out) Pending Phosphorus Level 4.7 MG/DL (2.5-4.9) Magnesium Level 1.8 MG/DL (1.8-2.4) Iron Level 28 ug/dL (50-175) L Total Iron Binding Capacity 40 ug/dL (250-450) L Percent Iron Saturation 70 % (15-50) H Unsaturated Iron Binding 12 ug/dL (112-346) L Ferritin 283 NG/ML (8-388) Total Bilirubin 0.6 MG/DL (0.2-1.0) Aspartate Amino Transf (AST/SGOT) 14 U/L (15-37) L Alanine Aminotransferase (ALT/SGPT) 7 U/L (12-78) L Alkaline Phosphatase 62 U/L (46-116) Total Protein 6.3 G/DL (6.4-8.2) L Albumin 1.7 G/DL (3.4-5.0) L Globulin 4.6 g/dL Albumin/Globulin Ratio 0.4 (1.0-2.7) L Vitamin D 25-Hydroxy Pending 25-Hydroxy Vitamin D2 Pending 25-Hydroxy Vitamin D3 Pending Parathyroid Hormone (Intact) Pending Random Vancomycin Level 12.1 ug/mL Height (Feet): 5 Height (Inches): 5.00 Weight (Pounds): 85 Medications Current Medications Medications (Trade) Dose Ordered Sig/Dorothy Route PRN Reason Start Time Stop Time Status Last Admin Dose Admin Acetaminophen (Tylenol) 650 mg Q4H PRN ORAL Mild Pain (Pain Scale 1-3) 01/13/20 18:45 02/12/20 18:44 Albuterol/ Ipratropium (Albuterol/ Ipratropium) 3 ml Q6H PRN HHN Shortness of Breath 01/13/20 18:45 01/18/20 18:44 Cefepime HCl 1 gm/ Dextrose 55 ml @ 110 mls/hr Q24H IVPB 01/14/20 09:00 01/21/20 08:59 01/15/20 08:36 Dextrose (Dextrose 50%) 25 ml Q30M PRN IV Hypoglycemia 01/13/20 18:45 04/12/20 18:44 Dextrose (Dextrose 50%) 50 ml Q30M PRN IV Hypoglycemia 01/13/20 18:45 04/12/20 18:44 Diphenhydramine HCl (Benadryl) 25 mg Q6H PRN ORAL Itching/Pruritis 01/13/20 18:45 02/12/20 18:44 Docusate Sodium (Colace) 100 mg EVERY 12 HOURS ORAL 01/13/20 21:00 02/12/20 20:59 01/15/20 08:36 Metronidazole 100 ml @ 100 mls/hr Q8HR IVPB 01/13/20 22:00 01/20/20 21:59 01/15/20 06:04 Ondansetron HCl (Zofran) 4 mg Q6H PRN IVP Nausea & Vomiting 01/13/20 18:45 02/12/20 18:44 Vancomycin HCl (Vanco rx to dose) 1 ea DAILY PRN MISC Per rx protocol 01/13/20 18:45 02/12/20 18:44 Assessment/Plan Problem List: (1) Chronic renal failure ICD Codes: N18.9 - Chronic kidney disease, unspecified SNOMED: 79456627 (2) Suspected COVID-19 virus infection ICD Codes: Z20.828 - Contact with and (suspected) exposure to other viral communicable diseases SNOMED: 486591954 (3) Decubitus skin ulcer Assessment & Plan: Patient identified admission to have multiple areas of skin concerns. He is severely depleted and albumin is 1.7. Malnutrition severe protein calorie malnutrition. He is thin and frail skin. Rectal area identifies erythema as well as the distal sacrum likely incontinence associated. Bilateral heels are boggy with areas of deep tissue injury. Patient is high risk for developing open wounds that would be very difficult to heal. He is at high risk for deep tissue injury. Needs very close monitoring care to ensure plan during hospitalization as can deteriorate quickly. Leukocytosis. Air soft mattress ordered. Turn every 2 hours. Wash sacral and buttock area after incontinence. Apply OPTi foam to sacral and bilateral heels. Offload heels with pillows. Will monitor closely nutritional optimization ICD Codes: L89.90 - Pressure ulcer of unspecified site, unspecified stage SNOMED: 545042268 (4) Leukocytosis Assessment & Plan: Hardware: Right-sided central venous catheter terminates near the junction of the SVC and right atrium. Lungs/pleura: Hyperinflation of the lungs suggestive of COPD. Opacity in the right mid and lower lung may represents combination of small pleural effusion with atelectasis versus pneumonia. Heart/mediastinum: Atherosclerotic calcifications of the aorta. No cardiomegaly. Soft tissues: Unremarkable. Bones: No acute fracture. Upper abdomen: Normal. IMPRESSION: Hyperinflation of the lungs suggestive of COPD. Opacity in the right mid and lower lung may represents combination of small pleural effusion with atelectasis versus pneumonia. will monitor line pna abx as per ID ICD Codes: D72.829 - Elevated white blood cell count, unspecified SNOMED: 238689269, 913833869 (5) Pneumonia ICD Codes: J18.9 - Pneumonia, unspecified organism SNOMED: 761376115 (6) Severe protein-calorie malnutrition Assessment & Plan: DAILY ESTIMATED NEEDS: Needs based on ESRD, HD/ 37.5kg 30-35 kcals/kg 3568-0882 total kcals 1.2-1.8 g protein/kg 45-68 g total protein Fluids per MD NUTRITION DIAGNOSIS: Increased kcal/prot needs R/T ESRD, underweight status as evidenced by HD dependent, severely underweight w/ BMI 13.8 and @ 61% IBW. ADDITIONAL RECOMMENDATIONS: * Per HD record: dry wt on 01/12= 37.5kg (82.5#) -> calibrated bedscale wt, daily wt monitoring * Monitor PO intake closely, rec liberalized REGULAR w/ poor PO * Monitor lytes closely: K and mag wnl, check phos level -> add Nephrovite x 1 * Add Nepro TID w/ meals (425kcal/19g prot per mary) ICD Codes: E43 - Unspecified severe protein-calorie malnutrition SNOMED: 956122162, 081939017, 723406058 (7) Bleeding Clint Damon January 15, 2020 14:21
--- NOTE | 2020-01-15 15:44 | Infectious Diseases Prog Note ---
Assessment/Plan Assessment/Plan ASSESSMENT AND PLAN: 1. sepsis, leukocytosis, pna, ? covid-19 virus infection, covid-19 virus isolation - vancomycin, cefepime and flagyl - f/u on labs and chest x-ray, blood cultures negative - wound care per protocol - f/u on covid-19 pcr test 2. End-stage renal disease, on hemodialysis. 3. Chronic kidney disease. 4. Depression. 5. Alzheimer's. 6. Dementia. 7. Aspiration risk. 8. Diabetes. 9. Hypertension. 10. Blood sugar and blood pressure treatment for diabetes and hypertension per primary care team. 11. Allergies to lactulose. No antibiotic allergies. 12. Social history is negative. 13. Family history noncontributory. 14. MAR was noted. 15. Case discussed with RN. 16. Continue treatment per primary consultants. Subjective Constitutional: Reports: fatigue; Denies: fever HEENT: Denies: congestion Respiratory: Denies: shortness of breath Cardiovascular: Denies: chest pain Gastrointestinal/Abdominal: Denies: nausea, vomiting, diarrhea Genitourinary: Reports: other - no gallagher Neurologic: Reports: other - more alert Psychiatric: Reports: other - NA Skin: Denies: rash Hematologic: Denies: bleeding Musculoskeletal: Denies: pain Allergies: Coded Allergies: LACTOSE (Unverified Allergy, Unknown, 01/13/20) Objective Vital Signs Last 24 Hour Vital Signs Date Time Temp Pulse Resp B/P (MAP) Pulse Ox O2 Delivery O2 Flow Rate FiO2 01/15/20 12:00 97.5 76 20 116/56 (76) 95 01/15/20 12:00 83 01/15/20 09:00 Room Air Room Air 01/15/20 08:00 97.7 76 20 97/48 (64) 99 01/15/20 08:00 74 01/15/20 04:00 98.0 84 20 119/50 (73) 96 01/15/20 04:00 78 01/15/20 00:00 77 01/15/20 00:00 97.7 82 20 96/52 (67) 95 01/14/20 21:00 Room Air 01/14/20 20:00 98 01/14/20 20:00 96.5 97 19 92/54 (67) 98 01/14/20 16:00 120 01/14/20 16:00 96.6 75 20 99/52 (68) 93 Height (Feet): 5 Height (Inches): 5.00 Weight (Pounds): 85 General Appearance: no acute distress HEENT: normocephalic, atraumatic, anicteric Respiratory/Chest: no respiratory distress, no accessory muscle use, rhonchi - bilaterally, rhonchi - left Cardiovascular: normal rate, regular rhythm, no gallop/murmur Abdomen: normal bowel sounds, soft, non tender, no organomegaly, non distended Genitourinary: other - no gallagher Extremities: no cyanosis Skin: no rash, other - wounds/skin revieewed Neurologic/Psychiatric: [place] II-XII grossly normal, alert, responsive Lymphatic: no neck adenopathy Musculoskeletal: no effusion Objective Chest x-ray - 01/15/20 - IMPRESSION: Hyperinflation of the lungs suggestive of COPD. Opacity in the right mid and lower lung may represents combination of small pleural effusion with atelectasis versus pneumonia. Microbiology Date/Time Source Procedure Growth Status 01/13/20 16:45 Blood Blood Culture - Preliminary NO GROWTH AFTER 24 HOURS Resulted 01/13/20 16:30 Blood Blood Culture - Preliminary NO GROWTH AFTER 24 HOURS Resulted 01/13/20 16:45 Nasal Nares MRSA Culture - Final NO METHICILLIN RESISTANT STAPH AUREUS... Complete 01/13/20 16:45 Rectum - Final NO CARBAPENEM-RESISTANT ENTEROBACTERI... Complete 01/13/20 16:45 Rectum VRE Culture - Final NO VANCOMYCIN RESISTANT ENTEROCOCCUS ... Complete Laboratory Tests Test 01/15/20 07:35 White Blood Count 14.2 K/UL (4.8-10.8) H Red Blood Count 3.85 M/UL (4.70-6.10) L Hemoglobin 11.5 G/DL (14.2-18.0) L Hematocrit 36.6 % (42.0-52.0) L Mean Corpuscular Volume 95 FL (80-99) Mean Corpuscular Hemoglobin 29.9 PG (27.0-31.0) Mean Corpuscular Hemoglobin Concent 31.5 G/DL (32.0-36.0) L Red Cell Distribution Width 21.8 % (11.6-14.8) H Platelet Count 91 K/UL (150-450) L Mean Platelet Volume 8.1 FL (6.5-10.1) Neutrophils (%) (Auto) % (45.0-75.0) Lymphocytes (%) (Auto) % (20.0-45.0) Monocytes (%) (Auto) % (1.0-10.0) Eosinophils (%) (Auto) % (0.0-3.0) Basophils (%) (Auto) % (0.0-2.0) Differential Total Cells Counted 100 Neutrophils % (Manual) 92 % (45-75) H Lymphocytes % (Manual) 6 % (20-45) L Monocytes % (Manual) 2 % (1-10) Eosinophils % (Manual) 0 % (0-3) Basophils % (Manual) 0 % (0-2) Band Neutrophils 0 % (0-8) Platelet Estimate Decreased L Platelet Morphology Normal Hypochromasia 1+ Anisocytosis 3+ Sodium Level 147 MMOL/L (136-145) H Potassium Level 3.9 MMOL/L (3.5-5.1) Chloride Level 112 MMOL/L (98-107) H Carbon Dioxide Level 24 MMOL/L (21-32) Anion Gap 12 mmol/L (5-15) Blood Urea Nitrogen 26 mg/dL (7-18) H Creatinine 3.5 MG/DL (0.55-1.30) H Estimat Glomerular Filtration Rate 16.7 mL/min (>60) Glucose Level 89 MG/DL (74-106) Calcium Level 7.8 MG/DL (8.5-10.1) L Calcium (Send out) Pending Phosphorus Level 4.7 MG/DL (2.5-4.9) Magnesium Level 1.8 MG/DL (1.8-2.4) Iron Level 28 ug/dL (50-175) L Total Iron Binding Capacity 40 ug/dL (250-450) L Percent Iron Saturation 70 % (15-50) H Unsaturated Iron Binding 12 ug/dL (112-346) L Ferritin 283 NG/ML (8-388) Total Bilirubin 0.6 MG/DL (0.2-1.0) Aspartate Amino Transf (AST/SGOT) 14 U/L (15-37) L Alanine Aminotransferase (ALT/SGPT) 7 U/L (12-78) L Alkaline Phosphatase 62 U/L (46-116) Total Protein 6.3 G/DL (6.4-8.2) L Albumin 1.7 G/DL (3.4-5.0) L Globulin 4.6 g/dL Albumin/Globulin Ratio 0.4 (1.0-2.7) L Vitamin D 25-Hydroxy Pending 25-Hydroxy Vitamin D2 Pending 25-Hydroxy Vitamin D3 Pending Parathyroid Hormone (Intact) Pending Random Vancomycin Level 12.1 ug/mL Hepatitis B Surface Antigen Pending Current Medications Medications (Trade) Dose Ordered Sig/Dorothy Route PRN Reason Start Time Stop Time Status Last Admin Dose Admin Acetaminophen (Tylenol) 650 mg Q4H PRN ORAL Mild Pain (Pain Scale 1-3) 01/13/20 18:45 02/12/20 18:44 Albuterol/ Ipratropium (Albuterol/ Ipratropium) 3 ml Q6H PRN HHN Shortness of Breath 01/13/20 18:45 01/18/20 18:44 Cefepime HCl 1 gm/ Dextrose 55 ml @ 110 mls/hr Q24H IVPB 01/14/20 09:00 01/21/20 08:59 01/15/20 08:36 Dextrose (Dextrose 50%) 25 ml Q30M PRN IV Hypoglycemia 01/13/20 18:45 04/12/20 18:44 Dextrose (Dextrose 50%) 50 ml Q30M PRN IV Hypoglycemia 01/13/20 18:45 04/12/20 18:44 Diphenhydramine HCl (Benadryl) 25 mg Q6H PRN ORAL Itching/Pruritis 01/13/20 18:45 02/12/20 18:44 Docusate Sodium (Colace) 100 mg EVERY 12 HOURS ORAL 01/13/20 21:00 02/12/20 20:59 01/15/20 08:36 Metronidazole 100 ml @ 100 mls/hr Q8HR IVPB 01/13/20 22:00 01/20/20 21:59 01/15/20 14:16 Ondansetron HCl (Zofran) 4 mg Q6H PRN IVP Nausea & Vomiting 01/13/20 18:45 02/12/20 18:44 Vancomycin HCl (Vanco rx to dose) 1 ea DAILY PRN MISC Per rx protocol 5/22/20 18:45 02/12/20 18:44 Marleny Rainey MD January 15, 2020 15:44
[2020-01-15 16:00] VITALS: BP 98/51
--- NOTE | 2020-01-15 19:14 | NUR ---
HAND-OFF: Report given to WINDY Mckoy. Endorsed plan of care.
--- NOTE | 2020-01-15 19:26 | NUR ---
NURSE NOTES: Received report from WINDY Mercado and WINDY Oliveira. Patient is awake lying semi-jin's; resting comfortably. No signs of acute distress noted; denies pain at this time. AOx1-2; able to make needs known. Primarily Farsi speaking. Checked IV site; patent and flushed. No erythema, bleeding, or infiltration noted. Right upper chest permcath in place for dialysis access. Bed at lowest position, brakes on, siderails up x3. Call light within reach. Will continue to monitor.
[2020-01-15 20:00] VITALS: BP 91/48
[2020-01-16] VITALS (36 sets, daily range): BP systolic 74–115; BP diastolic 12–80
--- NOTE | 2020-01-16 07:16 | NUR ---
HAND-OFF: Report given to WINDY Mercado. Patient is asleep lying semi-jin's; resting comfortably. In stable condition.
--- NOTE | 2020-01-16 07:30 | NUR ---
NURSE NOTES: Received report from WINDY Mckoy. Patient in bed resting, no active s/s cardiac, respiratory distress noticed at this time. Patient AOx1-2, ST with HR 101. IV on left wrist 20G, asymptomatic, patent, intact. Endorsed patient schedule for HD today. Bed in lowest position, side rails upx2, call light within reach, bed alarm on. Will continue to monitor.
[2020-01-16 09:07] LABS: HEMATOCRIT 37.9 % (42.0-52.0); MEAN CORPUSCULAR VOLUME 94 FL (80-99); PLATELET COUNT 89 K/UL (150-450); RED BLOOD COUNT 4.02 M/UL (4.70-6.10); RED CELL DISTRIBUTION WIDTH 21.5 % (11.6-14.8); WHITE BLOOD COUNT 12.9 K/UL (4.8-10.8)
[2020-01-16 09:22] LABS: PHOSPHORUS 5.5 MG/DL (2.5-4.9)
[2020-01-16] MEDS: Cefepime HCl 1 GM in D5W 55 ML IVPB SCH (09:22)
[2020-01-16] MEDS: Docusate 100mg cap ORAL SCH ×2 (09:22→21:00)
[2020-01-16 09:33] LABS: ALANINE AMINOTRANSFERASE 8 U/L (12-78); ALBUMIN 1.7 G/DL (3.4-5.0); ALBUMIN/GLOBULIN RATIO 0.4 (1.0-2.7); ALKALINE PHOSPHATASE 60 U/L (46-116); ANION GAP 12 mmol/L (5-15); ASPARTATE AMINO TRANSFERASE 12 U/L (15-37); BILIRUBIN,TOTAL 0.6 MG/DL (0.2-1.0); BLOOD UREA NITROGEN 33 mg/dL (7-18); CALCIUM 7.6 MG/DL (8.5-10.1); CARBON DIOXIDE 21 MMOL/L (21-32); CHLORIDE 111 MMOL/L (98-107); POTASSIUM 4.2 MMOL/L (3.5-5.1); SODIUM 144 MMOL/L (136-145)
--- NOTE | 2020-01-16 09:42 | Nephrology Progress Note ---
Assessment/Plan Plan #ESRD on MWF via R IJ catheter #possible chest pain ? 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 transferred to icu plan to start dopamine drip stat HD today Objective Objective Last 24 Hour Vital Signs Date Time Temp Pulse Resp B/P (MAP) Pulse Ox O2 Delivery O2 Flow Rate FiO2 01/16/20 08:00 97.5 96 17 95/53 (67) 92 01/16/20 08:00 85 01/16/20 04:00 91 01/16/20 04:00 98.3 101 17 106/54 (71) 98 01/16/20 00:00 98.6 95 18 90/51 (64) 99 01/16/20 00:00 98 01/15/20 21:00 Room Air 01/15/20 20:00 98 01/15/20 20:00 98.5 92 18 91/48 (62) 100 01/15/20 16:00 97.3 64 20 98/51 (67) 93 01/15/20 16:00 99 01/15/20 12:00 97.5 76 20 116/56 (76) 95 01/15/20 12:00 83 Intake and Output 01/15/20 01/16/20 19:00 07:00 Intake Total 255 ml 200 ml Balance 255 ml 200 ml IV Total 255 ml 200 ml # Voids 2 # Bowel Movements 3 Laboratory Tests 01/16/20 08:35: White Blood Count 12.9H, Red Blood Count 4.02L, Hemoglobin 12.0L, Hematocrit 37.9L, Mean Corpuscular Volume 94, Mean Corpuscular Hemoglobin 29.9, Mean Corpuscular Hemoglobin Concent 31.7L, Red Cell Distribution Width 21.5H, Platelet Count 89L, Mean Platelet Volume 9.5, Neutrophils (%) (Auto) , Lymphocytes (%) (Auto) , Monocytes (%) (Auto) , Eosinophils (%) (Auto) , Basophils (%) (Auto) , Neutrophils % (Manual) [Pending], Lymphocytes % (Manual) [Pending], Platelet Estimate [Pending], Platelet Morphology [Pending], Sodium Level 144, Potassium Level 4.2, Chloride Level 111H, Carbon Dioxide Level 21, Anion Gap 12, Blood Urea Nitrogen 33H, Creatinine 4.0H, Estimat Glomerular Filtration Rate 14.3, Glucose Level 86, Calcium Level 7.6L, Phosphorus Level 5.5H, Magnesium Level 1.9, Total Bilirubin 0.6, Aspartate Amino Transf (AST/SGOT ) 12L, Alanine Aminotransferase (ALT/SGPT) 8L, Alkaline Phosphatase 60, Total Protein 6.3L, Albumin 1.7L, Globulin 4.6, Albumin/Globulin Ratio 0.4L, Random Vancomycin Level 16.7 Height (Feet): 5 Height (Inches): 5.00 Weight (Pounds): 85 Objective General Appearance: no apparent distress Lines, tubes and drains: peripheral HEENT: normocephalic, atraumatic Neck: non-tender Respiratory/Chest: chest wall non-tender, lungs clear Cardiovascular/Chest: normal peripheral pulses, no JVD Abdomen: normal bowel sounds Extremities: trace edema Skin Exam: no diaphoresis Neurologic: disoriented Ying Londono M.D. January 16, 2020 09:42
--- NOTE | 2020-01-16 10:19 | Pulmonology Progress Note ---
Subjective ROS Limited/Unobtainable: Yes Interval Events: None new Constitutional: Reports: fatigue; Denies: fever HEENT: Repors: no symptoms Respiratory: Reports: no symptoms Cardiovascular: Reports: no symptoms Gastrointestinal/Abdominal: Denies: nausea, vomiting, diarrhea Genitourinary: Reports: no symptoms Psychiatric: Reports: other - NA Skin: Denies: rash Musculoskeletal: Denies: pain Allergies: Coded Allergies: LACTOSE (Unverified Allergy, Unknown, 01/13/20) Objective Last 24 Hour Vital Signs Date Time Temp Pulse Resp B/P (MAP) Pulse Ox O2 Delivery O2 Flow Rate FiO2 01/16/20 09:00 Room Air 01/16/20 08:00 97.5 96 17 95/53 (67) 92 01/16/20 08:00 85 01/16/20 04:00 91 01/16/20 04:00 98.3 101 17 106/54 (71) 98 01/16/20 00:00 98.6 95 18 90/51 (64) 99 01/16/20 00:00 98 01/15/20 21:00 Room Air 01/15/20 20:00 98 01/15/20 20:00 98.5 92 18 91/48 (62) 100 01/15/20 16:00 97.3 64 20 98/51 (67) 93 01/15/20 16:00 99 01/15/20 12:00 97.5 76 20 116/56 (76) 95 01/15/20 12:00 83 Intake and Output 01/15/20 01/16/20 19:00 07:00 Intake Total 255 ml 200 ml Balance 255 ml 200 ml IV Total 255 ml 200 ml # Voids 2 # Bowel Movements 3 General Appearance: no acute distress HEENT: normocephalic Respiratory: chest wall non-tender, decreased breath sounds Cardiovascular: normal peripheral pulses Abdomen: normal bowel sounds Extremities: no cyanosis Microbiology Date/Time Source Procedure Growth Status 01/13/20 16:45 Blood Blood Culture - Preliminary NO GROWTH AFTER 48 HOURS Resulted 01/13/20 16:30 Blood Blood Culture - Preliminary NO GROWTH AFTER 48 HOURS Resulted 01/13/20 16:45 Nasal Nares MRSA Culture - Final NO METHICILLIN RESISTANT STAPH AUREUS... Complete 01/13/20 16:45 Nasopharynx Coronavirus COVID-19 PCR ([facility]) - Final Complete 01/13/20 16:45 Rectum - Final NO CARBAPENEM-RESISTANT ENTEROBACTERI... Complete 01/13/20 16:45 Rectum VRE Culture - Final NO VANCOMYCIN RESISTANT ENTEROCOCCUS ... Complete Laboratory Tests 01/16/20 08:35: White Blood Count 12.9H, Red Blood Count 4.02L, Hemoglobin 12.0L, Hematocrit 37.9L, Mean Corpuscular Volume 94, Mean Corpuscular Hemoglobin 29.9, Mean Corpuscular Hemoglobin Concent 31.7L, Red Cell Distribution Width 21.5H, Platelet Count 89L, Mean Platelet Volume 9.5, Neutrophils (%) (Auto) , Lymphocytes (%) (Auto) , Monocytes (%) (Auto) , Eosinophils (%) (Auto) , Basophils (%) (Auto) , Differential Total Cells Counted 100, Neutrophils % ( Manual) 90H, Lymphocytes % (Manual) 4L, Monocytes % (Manual) 6, Eosinophils % ( Manual) 0, Basophils % (Manual) 0, Band Neutrophils 0, Platelet Estimate DecreasedL, Platelet Morphology Normal, Hypochromasia 1+, Anisocytosis 2+, Sodium Level 144, Potassium Level 4.2, Chloride Level 111H, Carbon Dioxide Level 21, Anion Gap 12, Blood Urea Nitrogen 33H, Creatinine 4.0H, Estimat Glomerular Filtration Rate 14.3, Glucose Level 86, Calcium Level 7.6L, Phosphorus Level 5.5H, Magnesium Level 1.9, Total Bilirubin 0.6, Aspartate Amino Transf (AST/SGOT) 12L, Alanine Aminotransferase (ALT/SGPT) 8L, Alkaline Phosphatase 60, Total Protein 6.3L, Albumin 1.7L, Globulin 4.6, Albumin/ Globulin Ratio 0.4L, Random Vancomycin Level 16.7 Current Medications Medications (Trade) Dose Ordered Sig/Dorothy Route PRN Reason Start Time Stop Time Status Last Admin Dose Admin Acetaminophen (Tylenol) 650 mg Q4H PRN ORAL Mild Pain (Pain Scale 1-3) 01/13/20 18:45 02/12/20 18:44 01/15/20 22:01 Albuterol/ Ipratropium (Albuterol/ Ipratropium) 3 ml Q6H PRN HHN Shortness of Breath 01/13/20 18:45 01/18/20 18:44 Cefepime HCl 1 gm/ Dextrose 55 ml @ 110 mls/hr Q24H IVPB 01/14/20 09:00 01/21/20 08:59 01/16/20 09:22 Dextrose (Dextrose 50%) 25 ml Q30M PRN IV Hypoglycemia 01/13/20 18:45 04/12/20 18:44 Dextrose (Dextrose 50%) 50 ml Q30M PRN IV Hypoglycemia 01/13/20 18:45 04/12/20 18:44 Diphenhydramine HCl (Benadryl) 25 mg Q6H PRN ORAL Itching/Pruritis 01/13/20 18:45 02/12/20 18:44 Docusate Sodium (Colace) 100 mg EVERY 12 HOURS ORAL 01/13/20 21:00 02/12/20 20:59 01/16/20 09:22 Metronidazole 100 ml @ 100 mls/hr Q8HR IVPB 01/13/20 22:00 01/20/20 21:59 01/16/20 05:25 Ondansetron HCl (Zofran) 4 mg Q6H PRN IVP Nausea & Vomiting 01/13/20 18:45 02/12/20 18:44 Vancomycin HCl (Vanco rx to dose) 1 ea DAILY PRN MISC Per rx protocol 01/13/20 18:45 02/12/20 18:44 Assessment/Plan Assessment/Plan IMPRESSION: 1. Pneumonia. 2. Dementia. 3. ESRD, on dialysis. DISCUSSION: Continue oxygen and pulmonary hygiene. Currently saturating 92% on RA Continue home medications. Broad-spectrum antibiotics. I will follow carefully. Leonid Molina Omar Syed MD January 16, 2020 10:19
--- NOTE | 2020-01-16 11:07 | Surgery Progress Note ---
Surgery Progress Note Subjective Additional Comments leukocytosis improved renal function noted exam stable minimal responsiveness Objective Last 24 Hour Vital Signs Date Time Temp Pulse Resp B/P (MAP) Pulse Ox O2 Delivery O2 Flow Rate FiO2 01/16/20 09:00 Room Air 01/16/20 08:00 97.5 96 17 95/53 (67) 92 01/16/20 08:00 85 01/16/20 04:00 91 01/16/20 04:00 98.3 101 17 106/54 (71) 98 01/16/20 00:00 98.6 95 18 90/51 (64) 99 01/16/20 00:00 98 01/15/20 21:00 Room Air 01/15/20 20:00 98 01/15/20 20:00 98.5 92 18 91/48 (62) 100 01/15/20 16:00 97.3 64 20 98/51 (67) 93 01/15/20 16:00 99 01/15/20 12:00 97.5 76 20 116/56 (76) 95 01/15/20 12:00 83 I&O Intake and Output 01/15/20 01/16/20 19:00 07:00 Intake Total 255 ml 200 ml Balance 255 ml 200 ml IV Total 255 ml 200 ml # Voids 2 # Bowel Movements 3 Dressing: other Wound: other Drains: other Cardiovascular: RSR Respiratory: decreased breath sounds Abdomen: soft, non-tender, present bowel sounds Extremities: no cyanosis Laboratory Tests Test 01/16/20 08:35 White Blood Count 12.9 K/UL (4.8-10.8) H Red Blood Count 4.02 M/UL (4.70-6.10) L Hemoglobin 12.0 G/DL (14.2-18.0) L Hematocrit 37.9 % (42.0-52.0) L Mean Corpuscular Volume 94 FL (80-99) Mean Corpuscular Hemoglobin 29.9 PG (27.0-31.0) Mean Corpuscular Hemoglobin Concent 31.7 G/DL (32.0-36.0) L Red Cell Distribution Width 21.5 % (11.6-14.8) H Platelet Count 89 K/UL (150-450) L Mean Platelet Volume 9.5 FL (6.5-10.1) Neutrophils (%) (Auto) % (45.0-75.0) Lymphocytes (%) (Auto) % (20.0-45.0) Monocytes (%) (Auto) % (1.0-10.0) Eosinophils (%) (Auto) % (0.0-3.0) Basophils (%) (Auto) % (0.0-2.0) Differential Total Cells Counted 100 Neutrophils % (Manual) 90 % (45-75) H Lymphocytes % (Manual) 4 % (20-45) L Monocytes % (Manual) 6 % (1-10) Eosinophils % (Manual) 0 % (0-3) Basophils % (Manual) 0 % (0-2) Band Neutrophils 0 % (0-8) Platelet Estimate Decreased L Platelet Morphology Normal Hypochromasia 1+ Anisocytosis 2+ Sodium Level 144 MMOL/L (136-145) Potassium Level 4.2 MMOL/L (3.5-5.1) Chloride Level 111 MMOL/L (98-107) H Carbon Dioxide Level 21 MMOL/L (21-32) Anion Gap 12 mmol/L (5-15) Blood Urea Nitrogen 33 mg/dL (7-18) H Creatinine 4.0 MG/DL (0.55-1.30) H Estimat Glomerular Filtration Rate 14.3 mL/min (>60) Glucose Level 86 MG/DL (74-106) Calcium Level 7.6 MG/DL (8.5-10.1) L Phosphorus Level 5.5 MG/DL (2.5-4.9) H Magnesium Level 1.9 MG/DL (1.8-2.4) Total Bilirubin 0.6 MG/DL (0.2-1.0) Aspartate Amino Transf (AST/SGOT) 12 U/L (15-37) L Alanine Aminotransferase (ALT/SGPT) 8 U/L (12-78) L Alkaline Phosphatase 60 U/L (46-116) Total Protein 6.3 G/DL (6.4-8.2) L Albumin 1.7 G/DL (3.4-5.0) L Globulin 4.6 g/dL Albumin/Globulin Ratio 0.4 (1.0-2.7) L Random Vancomycin Level 16.7 ug/mL Plan Problems: (1) Chronic renal failure (2) Suspected COVID-19 virus infection (3) Decubitus skin ulcer Assessment & Plan: Patient identified admission to have multiple areas of skin concerns. He is severely depleted and albumin is 1.7. Malnutrition severe protein calorie malnutrition. He is thin and frail skin. Rectal area identifies erythema as well as the distal sacrum likely incontinence associated. Bilateral heels are boggy with areas of deep tissue injury. Patient is high risk for developing open wounds that would be very difficult to heal. He is at high risk for deep tissue injury. Needs very close monitoring care to ensure plan during hospitalization as can deteriorate quickly. Leukocytosis. Air soft mattress ordered. Turn every 2 hours. Wash sacral and buttock area after incontinence. Apply OPTi foam to sacral and bilateral heels. Offload heels with pillows. Will monitor closely nutritional optimization (4) Leukocytosis Assessment & Plan: Hardware: Right-sided central venous catheter terminates near the junction of the SVC and right atrium. Lungs/pleura: Hyperinflation of the lungs suggestive of COPD. Opacity in the right mid and lower lung may represents combination of small pleural effusion with atelectasis versus pneumonia. Heart/mediastinum: Atherosclerotic calcifications of the aorta. No cardiomegaly. Soft tissues: Unremarkable. Bones: No acute fracture. Upper abdomen: Normal. IMPRESSION: Hyperinflation of the lungs suggestive of COPD. Opacity in the right mid and lower lung may represents combination of small pleural effusion with atelectasis versus pneumonia. will monitor line pna abx as per ID (5) Pneumonia (6) Severe protein-calorie malnutrition Assessment & Plan: DAILY ESTIMATED NEEDS: Needs based on ESRD, HD/ 37.5kg 30-35 kcals/kg 2453-6960 total kcals 1.2-1.8 g protein/kg 45-68 g total protein Fluids per MD NUTRITION DIAGNOSIS: Increased kcal/prot needs R/T ESRD, underweight status as evidenced by HD dependent, severely underweight w/ BMI 13.8 and @ 61% IBW. ADDITIONAL RECOMMENDATIONS: * Per HD record: dry wt on 01/12= 37.5kg (82.5#) -> calibrated bedscale wt, daily wt monitoring * Monitor PO intake closely, rec liberalized REGULAR w/ poor PO * Monitor lytes closely: K and mag wnl, check phos level -> add Nephrovite x 1 * Add Nepro TID w/ meals (425kcal/19g prot per mary) (7) Bleeding Clint Damon January 16, 2020 11:07
--- NOTE | 2020-01-16 14:13 | Internal Med Progress Note ---
Subjective Physician Name Roxanna Ugarte Attending Physician Ying Londono M.D. Current Medications Medications (Trade) Dose Ordered Sig/Dorothy Route PRN Reason Start Time Stop Time Status Last Admin Dose Admin Acetaminophen (Tylenol) 650 mg Q4H PRN ORAL Mild Pain (Pain Scale 1-3) 01/13/20 18:45 02/12/20 18:44 01/15/20 22:01 Albuterol/ Ipratropium (Albuterol/ Ipratropium) 3 ml Q6H PRN HHN Shortness of Breath 01/13/20 18:45 01/18/20 18:44 Cefepime HCl 1 gm/ Dextrose 55 ml @ 110 mls/hr Q24H IVPB 01/14/20 09:00 01/21/20 08:59 01/16/20 09:22 Dextrose (Dextrose 50%) 25 ml Q30M PRN IV Hypoglycemia 01/13/20 18:45 04/12/20 18:44 Dextrose (Dextrose 50%) 50 ml Q30M PRN IV Hypoglycemia 01/13/20 18:45 04/12/20 18:44 Diphenhydramine HCl (Benadryl) 25 mg Q6H PRN ORAL Itching/Pruritis 01/13/20 18:45 02/12/20 18:44 Docusate Sodium (Colace) 100 mg EVERY 12 HOURS ORAL 01/13/20 21:00 02/12/20 20:59 01/16/20 09:22 Metronidazole 100 ml @ 100 mls/hr Q8HR IVPB 01/13/20 22:00 01/20/20 21:59 01/16/20 14:06 Ondansetron HCl (Zofran) 4 mg Q6H PRN IVP Nausea & Vomiting 01/13/20 18:45 02/12/20 18:44 Vancomycin HCl (Vanco rx to dose) 1 ea DAILY PRN MISC Per rx protocol 01/13/20 18:45 02/12/20 18:44 Vancomycin HCl 750 mg/Sodium Chloride 275 ml @ 183.333 mls/hr ONCE ONCE IVPB 01/16/20 18:00 01/16/20 19:29 Allergies: Coded Allergies: LACTOSE (Unverified Allergy, Unknown, 01/13/20) Subjective Patient is pleasantly demented; WBC improved today. COVID negative; CXR w/ ongoing infiltrate. Pending swallow eval Objective Last Vital Signs Date Time Temp Pulse Resp B/P (MAP) Pulse Ox O2 Delivery O2 Flow Rate FiO2 01/16/20 12:00 90 01/16/20 12:00 97.6 16 94/48 (63) 92 01/16/20 09:00 Room Air 01/13/20 23:34 2.0 Laboratory Tests Test 01/16/20 08:35 White Blood Count 12.9 K/UL (4.8-10.8) H Red Blood Count 4.02 M/UL (4.70-6.10) L Hemoglobin 12.0 G/DL (14.2-18.0) L Hematocrit 37.9 % (42.0-52.0) L Mean Corpuscular Volume 94 FL (80-99) Mean Corpuscular Hemoglobin 29.9 PG (27.0-31.0) Mean Corpuscular Hemoglobin Concent 31.7 G/DL (32.0-36.0) L Red Cell Distribution Width 21.5 % (11.6-14.8) H Platelet Count 89 K/UL (150-450) L Mean Platelet Volume 9.5 FL (6.5-10.1) Neutrophils (%) (Auto) % (45.0-75.0) Lymphocytes (%) (Auto) % (20.0-45.0) Monocytes (%) (Auto) % (1.0-10.0) Eosinophils (%) (Auto) % (0.0-3.0) Basophils (%) (Auto) % (0.0-2.0) Differential Total Cells Counted 100 Neutrophils % (Manual) 90 % (45-75) H Lymphocytes % (Manual) 4 % (20-45) L Monocytes % (Manual) 6 % (1-10) Eosinophils % (Manual) 0 % (0-3) Basophils % (Manual) 0 % (0-2) Band Neutrophils 0 % (0-8) Platelet Estimate Decreased L Platelet Morphology Normal Hypochromasia 1+ Anisocytosis 2+ Sodium Level 144 MMOL/L (136-145) Potassium Level 4.2 MMOL/L (3.5-5.1) Chloride Level 111 MMOL/L (98-107) H Carbon Dioxide Level 21 MMOL/L (21-32) Anion Gap 12 mmol/L (5-15) Blood Urea Nitrogen 33 mg/dL (7-18) H Creatinine 4.0 MG/DL (0.55-1.30) H Estimat Glomerular Filtration Rate 14.3 mL/min (>60) Glucose Level 86 MG/DL (74-106) Calcium Level 7.6 MG/DL (8.5-10.1) L Phosphorus Level 5.5 MG/DL (2.5-4.9) H Magnesium Level 1.9 MG/DL (1.8-2.4) Total Bilirubin 0.6 MG/DL (0.2-1.0) Aspartate Amino Transf (AST/SGOT) 12 U/L (15-37) L Alanine Aminotransferase (ALT/SGPT) 8 U/L (12-78) L Alkaline Phosphatase 60 U/L (46-116) Total Protein 6.3 G/DL (6.4-8.2) L Albumin 1.7 G/DL (3.4-5.0) L Globulin 4.6 g/dL Albumin/Globulin Ratio 0.4 (1.0-2.7) L Random Vancomycin Level 16.7 ug/mL Microbiology Date/Time Source Procedure Growth Status 01/13/20 16:45 Blood Blood Culture - Preliminary NO GROWTH AFTER 48 HOURS Resulted 01/13/20 16:30 Blood Blood Culture - Preliminary NO GROWTH AFTER 48 HOURS Resulted 01/13/20 16:45 Nasal Nares MRSA Culture - Final NO METHICILLIN RESISTANT STAPH AUREUS... Complete 01/13/20 16:45 Nasopharynx Coronavirus COVID-19 PCR ([facility]) - Final Complete 01/13/20 16:45 Rectum - Final NO CARBAPENEM-RESISTANT ENTEROBACTERI... Complete 01/13/20 16:45 Rectum VRE Culture - Final NO VANCOMYCIN RESISTANT ENTEROCOCCUS ... Complete Intake and Output 01/15/20 01/16/20 19:00 07:00 Intake Total 255 ml 200 ml Balance 255 ml 200 ml IV Total 255 ml 200 ml # Voids 2 # Bowel Movements 3 Objective General Appearance: no apparent distress, other - pleasantly demented , frail and thin EENT: PERRL/EOMI Cardiovascular: normal rate, regular rhythm Respiratory/Chest: lungs clear, normal breath sounds, no respiratory distress Abdomen: soft Neurologic: laboratory associate II-XII grossly normal Skin: warm/dry Assessment/Plan Assessment/Plan Assessment #Aspiration PNA--> CXR w/ Right LL infiltrate #R/O COVID --> confirmed negative #ESRD on HD #Thrombocytopenia #Dementia Plan Appreciate Consultants Continue Broad Spectrum w/ Vancomycin , Flagyl and Cefepime Marti Cx Pending Pending swallow eval Continue HD per nephro Monitor platelets, if drops below 50 hold chemical DVT ppx Obtain and Reconcile home meds Diet as tolerated 01/14: F/U regarding swallow eval to ensure no aspiraton 01/15: WBC improving, continue AB. Swallow eval. Roxanna Ugarte D.O. January 16, 2020 14:13
--- NOTE | 2020-01-16 14:40 | NUR ---
NURSE NOTES: Patient noted unresponsive not following command and SOB. O2 sat. 70% on 4L NC, ST 113 in the monitor BP 89/23.
--- NOTE | 2020-01-16 15:10 | NUR ---
NURSE NOTES: Received patient from WINDY Meracdo. Patient status post SPECIAL SERVICES SUPERVISOR. Patient blood pressure low at 86/16. 1 liter Bolus running at this time. Will continue to monitor. Temp 95 rectal. Will apply bear hugger. HR 106. Patient opens eyes but does not respond verbally. patient lethargic, dependent, passive to care. Patient on non-rebreather 100% with 100% SpO2. Sinus tachycardia noted on the child monitor. Patient reported to be on renal diet but is unable to take anything by mouth at this time due to change in mental status. Patient is oliguric. One void noted and one small black bowel movement noted at this time. Patient has sacral and bilateral heel erythema and ecchymosis on bilateral upper extremities. Pitting edema noted on bilateral upper and lower extremities +2. Skin tear noted on right forearm. Patient has right upper arm 22 gauge peripheral IV inserted during SPECIAL SERVICES SUPERVISOR and left wrist 20 gauge peripheral IV inserted at this time. Both patent. Right upper arm IV edematous but has blood return. 1L bolus running at this time. Patient bed in low position with bed alarm on and call light in reach. Awaiting result of stat ABG taken during SPECIAL SERVICES SUPERVISOR. WIll follow up and notify Dr Rivera. Patient repositioned and heels floated.
--- NOTE | 2020-01-16 15:10 | NUR ---
BASKETBALL COMMENTATOR Note: BASKETBALL COMMENTATOR was called at 1445 by WINDY Mercado, and notified Dr. Londono. Pt transferred to ICU at 1510. 1445 BASKETBALL COMMENTATOR was called, BS checked 66, 1 dose of D50 given, AOx0, non-rebreather 15L applied, O2 sat 95% VS 76/42, BASKETBALL COMMENTATOR team arrived. [address] Londono, received order to transfer patient to ICU, STAT ABG, 1L NS bolus. 1510 Patient transferred to ICU room 246-B, Report given to WINDY Langley. Belonging list checked, family member, , son made aware of transfer.
--- NOTE | 2020-01-16 15:59 | NUR ---
NURSE NOTES: Left message for Dr Rivera regarding ABG result and low blood pressure. Blood pressure now 87/14 and SpO2 100% on non-rebreather. Addendum: 01/16/20 at 1602 by Korin Pastrana RN Awaiting call back.
[2020-01-16] MEDS ORDERED: DiphenhydrAMINE 25mg Tab ORAL PRN (16:00)
[2020-01-16] MEDS ORDERED: Albuterol/Ipratropium 3ml neb HHN PRN (16:00)
--- NOTE | 2020-01-16 16:46 | NUR ---
NURSE NOTES: Received call back from Dr Rivera. Notified him that patient has low blood pressure of 76/19 at this time after 1L given. Inquired about central line insertion. Received order for PICC line insertion for tomorrow. Received notification that he would call Dr Londono for further orders.
--- NOTE | 2020-01-16 16:51 | NUR ---
NURSE NOTES: Received call from Dr. Londono. Received order for Bicarbonate 1amp now and start Dopamine drip via Permi-cath. Also received order to ensure hemodialysis is done. Order read back, verified, and placed at this time.
[2020-01-16] MEDS ORDERED: Sodium Bicarbonate 50ml Carp IV SCH ×2 (17:00→18:00)
[2020-01-16] MEDS: DOPamine 400mg/250ml 250 ML IV SCH (17:02)
--- NOTE | 2020-01-16 17:29 | NUR ---
NURSE NOTES: Called Dr Londono. Notified him that patient blood pressure remains low at 69/23 on max dose of dopamine drip. Received order for Phenylephrine. Order read back, verified, and placed.
[2020-01-16] MEDS: Phenylephrine 50 MG in D5W 245 ML IV SCH ×2 (17:36→21:05)
--- NOTE | 2020-01-16 17:40 | NUR ---
cancel hd by dr farah because unstable info to stuart brown
[2020-01-16] MEDS ORDERED: Vancomycin 750 MG in NS 275 ML IVPB ONE (18:00)
[2020-01-16] MEDS ORDERED: Vancomycin 750mg/NS 275ml IVPB ONE ×2 (18:00)
--- NOTE | 2020-01-16 18:35 | NUR ---
NURSE NOTES: Received call from Dr. Londono at 1730. Received order to administer another 1 amp of Bicarbonate IVP 50mL once now. Received order to hold dialysis for now. [place] dialysis nurse, notified. Received order for BIPAP 15/5 and ABG one hour after BIPAP initiation. Orders read back, verified, and placed.
--- NOTE | 2020-01-16 19:20 | NUR ---
HAND-OFF: Report given to WINDY Trujillo. Blood pressure 114/23. HR 134. SpO2 98% on BiPAP 15/5 with 100% FIO2. Endorsed to follow up and monitor.
[2020-01-16] MEDS ORDERED: Heparin1,000 units/500ml Premix(Conc:2 units/ml) IV PRN (19:30)
[2020-01-16] MEDS ORDERED: Lidocaine 1% Plain 30 ml INJ PRN (19:30)
--- NOTE | 2020-01-16 19:30 | NUR ---
NURSE NOTES: Received patient and report from WINDY Langley. Pt's obtunded. Full code status. Nonverbal, non responsive, eyes open, pupils sluggish. BP 113/33, HR 132, R23, O2 not reading. Pt's hands cold to touch, on rose hugger. Pt's current on max of Dopanine and Phenylephrine via right upper chest permacath. Patient on Bipap 15/5 on 100%. Sinus tachycardia noted on the senior principal process engineer. Pt's NPO at this time. Patient is oliguric. No BM at this time. Patient has sacral and bilateral heel erythema and ecchymosis on bilateral upper extremities. +3 Pitting edema noted on bilateral upper and lower extremities . Skin tear noted on right forearm. Noted right upper arm 22 gauge peripheral IV and left wrist 20 gauge peripheral IV.Both patent and intact. HOB keep semi-jin. Patient bed in low position with bed alarm on and call light in reach. Will continue to monitor.
--- NOTE | 2020-01-16 20:06 | NUR ---
RESPIRATORY NOTE: Received pt on BiPAP /, Backup rate 12, 100%. Pt on a Full Face mask, skin intact, no redness/breakdowns noted. Pt awake/disoriented. B/S alesia. diminished, nonproductive cough. BiPAP plugged into red outlet, alarms on & audible. Pt in no apparent distress at this time. Will continue to monitor pt. Addendum: 01/17/20 at 1908 by OXANA KOENIG RT BiPAP 15/5.
--- NOTE | 2020-01-16 21:00 | NUR ---
NURSE NOTES: Dr Rivera called back regarding the current ABG result, ordered to continue with current Bipap 15/5, 100%. Noted and carried out. Will continue to monitor.
[2020-01-16] MEDS: Dyna-Hex 2% Top Sol 2oz TOPIC SCH (21:26)
--- NOTE | 2020-01-16 22:53 | NUR ---
NURSE NOTES: The son of the pt (Tim Cooley) has discussed among the family members and decided to change pt's status to DNR/DNI. POLST signed by Tim Barlow ( the son). Also informed Dr. Londono. Will continue to monitor.
[2020-01-17] VITALS (78 sets, daily range): BP systolic 50–104; BP diastolic 10–44
--- NOTE | 2020-01-17 | NUR ---
NURSE NOTES: Pt's in bed, in no acute distress. Still on pressors. Will continue to monitor.
[2020-01-17] MEDS: Phenylephrine 50 MG in D5W 245 ML IV SCH ×3 (01:11→09:15)
--- NOTE | 2020-01-17 02:00 | NUR ---
NURSE NOTES: Pt's in bed, stable VS with pressors, Bipap 15/5, 100%, in no acute distress. Afebrile. Continue to monitor.
[2020-01-17] MEDS: DOPamine 400mg/250ml 250 ML IV SCH ×3 (02:38→20:18)
--- NOTE | 2020-01-17 04:00 | NUR ---
NURSE NOTES: Pt's in bed, in no acute distress. VS stable on max of dopamine and phenylephrine. . Will continue to monitor.
[2020-01-17 05:31] LABS: HEMATOCRIT 37.6 % (42.0-52.0); HEMOGLOBIN 11.6 G/DL (14.2-18.0); MEAN CORPUSCULAR VOLUME 98 FL (80-99); PLATELET COUNT 90 K/UL (150-450); RED BLOOD COUNT 3.86 M/UL (4.70-6.10); RED CELL DISTRIBUTION WIDTH 21.9 % (11.6-14.8); WHITE BLOOD COUNT 13.4 K/UL (4.8-10.8)
[2020-01-17 05:52] LABS: ALANINE AMINOTRANSFERASE 20 U/L (12-78); ALBUMIN 1.6 G/DL (3.4-5.0); ALBUMIN/GLOBULIN RATIO 0.4 (1.0-2.7); ALKALINE PHOSPHATASE 57 U/L (46-116); ANION GAP 16 mmol/L (5-15); ASPARTATE AMINO TRANSFERASE 40 U/L (15-37); BILIRUBIN,TOTAL 0.7 MG/DL (0.2-1.0); BLOOD UREA NITROGEN 36 mg/dL (7-18); CALCIUM 7.2 MG/DL (8.5-10.1); CARBON DIOXIDE 19 MMOL/L (21-32); CHLORIDE 107 MMOL/L (98-107); CREATININE 4.2 MG/DL (0.55-1.30); PHOSPHORUS 6.2 MG/DL (2.5-4.9); POTASSIUM 4.6 MMOL/L (3.5-5.1); SODIUM 142 MMOL/L (136-145)
--- NOTE | 2020-01-17 06:00 | NUR ---
NURSE NOTES: Pt's in bed, BP 74/19, on max of dopamine and phenylephrine. Hr 132, O2 sat 92% on Bipap 15/5, 100%. Pt's DNR/DNI. Will continue to monitor.
--- NOTE | 2020-01-17 07:07 | NUR ---
HAND-OFF: Report given to WINDY Langley.
--- NOTE | 2020-01-17 07:08 | NUR ---
NURSE NOTES: Received patient from WINDY Trujillo. Patient unresponsive to name, verbal, or physical stimuli. Patient on BiPAP 15/5 with 100% FiO2. RR 28, SpO2 91-94%. Blood pressure 71/14 at this time on phenylephrine at 240mcg/min and dopamine at 20mcg/kg/min. Will follow up with Dr Rivera to ask if he would like to order another vasopressor for this patient. Patient thin, frail with sacral and bilateral heel erythema noted. Bilateral arm ecchymosis, pitting +3 edema and weeping noted. Bilateral feet pitting +3 edema noted. Patient skin otherwise intact. Patient oliguric with no output noted over night. Patient left upper arm 22 gauge peripheral IV and left wrist 20 gauge peripheral IV. Both patent, asymptomatic, and saline locked. Patient has right chest permi-cath that is asymptomatic and running phenylephrine and dopamine on the venous port at this time. Patient bed in low position with bed alarm on and call light in reach at this time. Patient repositioned. Will continue to monitor.
--- NOTE | 2020-01-17 07:47 | NUR ---
NURSE NOTES: Dr Rivera notified via telephone call that patient blood pressure remains low at 77/29 on max dose of dopamine drip and phenylephrine drip. Notified him that patient's code status has been changed to DNR/DNI. No new orders received.
[2020-01-17] MEDS: Docusate 100mg cap ORAL SCH ×2 (08:28→19:45)
[2020-01-17] MEDS ORDERED: Cefepime HCl 1 GM in D5W 55 ML IVPB SCH (09:00)
--- NOTE | 2020-01-17 09:13 | NUR ---
NURSE NOTES: Dr Londono rounded on the patient. Updated him on patient current condition. Notified him that blood pressure remains low despite max dose of dopamine drip and phenylephrine drip. Received order for ABG. Order read back, verified, and placed.
--- NOTE | 2020-01-17 09:47 | NUR ---
NURSE NOTES: Left telephone message for Dr Londono at his office regarding ABG result. Awaiting call back.
--- NOTE | 2020-01-17 09:55 | Surgery Progress Note ---
Surgery Progress Note Subjective Additional Comments respiratory declining in ICU on BIPAP. abg noted on pressors not responsive ill appearing Objective Last 24 Hour Vital Signs Date Time Temp Pulse Resp B/P (MAP) Pulse Ox O2 Delivery O2 Flow Rate FiO2 01/17/20 09:15 125 72/29 01/17/20 09:09 127 28 93 100 01/17/20 09:00 74/22 01/17/20 09:00 128 28 72/29 (43) 01/17/20 08:45 128 28 80/16 (37) 01/17/20 08:30 130 29 76/32 (47) 01/17/20 08:15 130 29 77/29 (45) 01/17/20 08:00 100 01/17/20 08:00 74/35 01/17/20 08:00 98.3 131 29 72/25 (41) 01/17/20 08:00 Bi-pap 01/17/20 08:00 131 01/17/20 07:45 131 29 77/29 (45) 01/17/20 07:30 132 29 71/14 (33) 01/17/20 07:17 130 30 93 100 01/17/20 07:15 130 30 79/19 (39) 01/17/20 07:00 74/35 01/17/20 07:00 130 30 75/35 (48) 01/17/20 06:45 131 30 74/23 (40) 01/17/20 06:30 131 29 74/19 (37) 01/17/20 06:15 133 29 79/17 (37) 01/17/20 06:00 79/17 01/17/20 06:00 133 28 76/15 (35) 01/17/20 05:30 135 29 79/29 (46) 01/17/20 05:15 136 30 77/31 (46) 01/17/20 05:12 137 81/18 01/17/20 05:00 137 30 81/18 (39) 01/17/20 05:00 77/31 01/17/20 04:58 137 30 94 100 01/17/20 04:45 137 31 83/20 (41) 01/17/20 04:30 137 29 91/34 (53) 01/17/20 04:15 136 29 86/40 (55) 01/17/20 04:00 Non-Rebreather 15.0 01/17/20 04:00 137 01/17/20 04:00 15.0 01/17/20 04:00 86/40 01/17/20 04:00 97.8 139 32 79/39 (52) 01/17/20 03:55 139 32 76/42 (53) 01/17/20 03:53 137 31 75/31 (46) 01/17/20 03:48 139 30 70/36 (47) 83 01/17/20 03:45 141 33 64/24 (37) 86 01/17/20 03:30 142 31 101/18 (45) 90 01/17/20 03:15 142 31 94/14 (40) 01/17/20 03:08 140 32 91 100 01/17/20 03:00 97.8 140 31 96/18 (44) 01/17/20 03:00 94/14 01/17/20 02:45 138 31 90/17 (41) 01/17/20 02:38 93/24 01/17/20 02:30 139 31 93/24 (47) 01/17/20 02:15 139 30 95/35 (55) 01/17/20 02:00 140 30 96/16 (42) 01/17/20 02:00 95/35 01/17/20 01:45 139 30 98/39 (58) 01/17/20 01:30 140 30 101/15 (43) 01/17/20 01:15 140 30 85/24 (44) 01/17/20 01:11 130 95/20 01/17/20 01:05 141 29 89 100 01/17/20 01:00 140 29 95/20 (45) 01/17/20 01:00 85/24 01/17/20 00:45 140 29 103/33 (56) 01/17/20 00:30 140 29 104/41 (62) 01/17/20 00:15 146 29 103/22 (49) 01/17/20 00:00 146 30 95/44 (61) 01/17/20 00:00 Non-Rebreather 15.0 01/17/20 00:00 15.0 01/17/20 00:00 103/22 01/17/20 00:00 146 01/16/20 23:46 147 28 100/54 (69) 01/16/20 23:45 147 29 100/40 (60) 01/16/20 23:30 146 29 110/26 (54) 01/16/20 23:15 144 30 110/25 (53) 20 23:03 145 30 95 100 01/16/20 23:00 110/25 01/16/20 23:00 144 27 114/25 (54) 98 01/16/20 22:45 141 27 109/41 (63) 81 01/16/20 22:30 140 28 100/79 (86) 01/16/20 22:15 137 26 109/32 (57) 93 01/16/20 22:00 113/47 01/16/20 22:00 134 27 113/47 (69) 01/16/20 21:45 130 27 115/39 (64) 01/16/20 21:30 130 24 112/48 (69) 75 01/16/20 21:25 126 27 95 90 01/16/20 21:15 130 27 111/22 (51) 01/16/20 21:05 126 108/41 01/16/20 21:00 127 25 108/41 (63) 80 01/16/20 21:00 111/22 01/16/20 20:45 126 23 110/12 (44) 01/16/20 20:30 127 27 112/45 (67) 01/16/20 20:15 126 25 109/47 (67) 88 01/16/20 20:04 128 28 96 100 01/16/20 20:00 132 23 102/52 (69) 01/16/20 20:00 129 01/16/20 20:00 109/47 01/16/20 20:00 Non-Rebreather 15.0 01/16/20 19:30 97.4 132 23 111/20 (50) 01/16/20 19:00 126 19 113/33 (59) 01/16/20 19:00 111/20 20 18:45 115/44 01/16/20 18:30 122 18 111/35 (60) 20 18:30 115/54 01/16/20 18:27 127 20 100 01/16/20 18:15 125 18 110/80 (90) 82 01/16/20 18:15 110/80 01/16/20 18:00 126 19 77/17 (37) 01/16/20 18:00 77/17 01/16/20 17:45 128 18 74/15 (34) 100 01/16/20 17:45 74/15 01/16/20 17:36 125 82/13 01/16/20 17:35 128 18 84/51 (62) 100 01/16/20 17:30 94.5 127 17 82/13 (36) 100 01/16/20 17:30 84/51 01/16/20 17:16 104 17 76/34 (48) 100 01/16/20 17:15 78/20 01/16/20 17:02 75/20 01/16/20 17:00 107 19 85/18 (40) 100 01/16/20 16:45 93 17 74/16 (35) 100 01/16/20 16:30 95.0 95 17 76/19 (38) 100 01/16/20 16:24 100.0 01/16/20 16:00 104 01/16/20 16:00 Non-Rebreather 15.0 01/16/20 16:00 99 18 91/19 (43) 100 01/16/20 15:49 95.0 100 17 87/14 (38) 100 01/16/20 14:45 76/42 (53) 01/16/20 12:00 90 01/16/20 12:00 97.6 90 16 94/48 (63) 92 I&O Intake and Output 01/16/20 01/17/20 18:59 06:59 Intake Total 45.985 ml 1409.638 ml Output Total 0 ml Balance 45.985 ml 1409.638 ml IV Total 45.985 ml 1409.638 ml Output Urine Total 0 ml # Voids 1 # Bowel Movements 2 Dressing: other Wound: other Drains: other Cardiovascular: RSR Respiratory: decreased breath sounds, other Abdomen: soft, non-tender, present bowel sounds Extremities: edema, no cyanosis Laboratory Tests Test 01/16/20 15:01 01/16/20 20:28 01/17/20 04:40 01/17/20 09:12 Arterial Blood pH 7.043 (7.350-7.450) 7.132 (7.350-7.450) 7.055 (7.350-7.450) Arterial Blood Partial Pressure CO2 68.4 mmHg (35.0-45.0) *H 62.3 mmHg (35.0-45.0) *H 74.3 mmHg (35.0-45.0) *H Arterial Blood Partial Pressure O2 134.9 mmHg (75.0-100.0) H 190.1 mmHg (75.0-100.0) H 239.7 mmHg (75.0-100.0) H Arterial Blood HCO3 18.2 mmol/L (22.0-26.0) L 20.4 mmol/L (22.0-26.0) L 20.3 mmol/L (22.0-26.0) L Arterial Blood Oxygen Saturation 97.2 % (95-100) 98.8 % (95-100) 99.1 % (95-100) Arterial Blood Base Excess -12.7 (-2-2) *L -9.3 (-2-2) *L -10.9 (-2-2) *L Yimi Test Positive Positive White Blood Count 13.4 K/UL (4.8-10.8) H Red Blood Count 3.86 M/UL (4.70-6.10) L Hemoglobin 11.6 G/DL (14.2-18.0) L Hematocrit 37.6 % (42.0-52.0) L Mean Corpuscular Volume 98 FL (80-99) Mean Corpuscular Hemoglobin 30.1 PG (27.0-31.0) Mean Corpuscular Hemoglobin Concent 30.9 G/DL (32.0-36.0) L Red Cell Distribution Width 21.9 % (11.6-14.8) H Platelet Count 90 K/UL (150-450) L Mean Platelet Volume 7.7 FL (6.5-10.1) Neutrophils (%) (Auto) % (45.0-75.0) Lymphocytes (%) (Auto) % (20.0-45.0) Monocytes (%) (Auto) % (1.0-10.0) Eosinophils (%) (Auto) % (0.0-3.0) Basophils (%) (Auto) % (0.0-2.0) Differential Total Cells Counted 100 Neutrophils % (Manual) 94 % (45-75) H Lymphocytes % (Manual) 3 % (20-45) L Monocytes % (Manual) 3 % (1-10) Eosinophils % (Manual) 0 % (0-3) Basophils % (Manual) 0 % (0-2) Band Neutrophils 0 % (0-8) Platelet Estimate Decreased L Platelet Morphology Normal Polychromasia 1+ Hypochromasia 1+ Anisocytosis 2+ Sodium Level 142 MMOL/L (136-145) Potassium Level 4.6 MMOL/L (3.5-5.1) Chloride Level 107 MMOL/L (98-107) Carbon Dioxide Level 19 MMOL/L (21-32) L Anion Gap 16 mmol/L (5-15) H Blood Urea Nitrogen 36 mg/dL (7-18) H Creatinine 4.2 MG/DL (0.55-1.30) H Estimat Glomerular Filtration Rate 13.5 mL/min (>60) Glucose Level 198 MG/DL (74-106) #H Calcium Level 7.2 MG/DL (8.5-10.1) L Phosphorus Level 6.2 MG/DL (2.5-4.9) H Magnesium Level 1.8 MG/DL (1.8-2.4) Total Bilirubin 0.7 MG/DL (0.2-1.0) Aspartate Amino Transf (AST/SGOT) 40 U/L (15-37) H Alanine Aminotransferase (ALT/SGPT) 20 U/L (12-78) Alkaline Phosphatase 57 U/L (46-116) Total Protein 6.1 G/DL (6.4-8.2) L Albumin 1.6 G/DL (3.4-5.0) L Globulin 4.5 g/dL Albumin/Globulin Ratio 0.4 (1.0-2.7) L Plan Problems: (1) Chronic renal failure (2) Suspected COVID-19 virus infection (3) Decubitus skin ulcer Assessment & Plan: Patient identified admission to have multiple areas of skin concerns. He is severely depleted and albumin is 1.7. Malnutrition severe protein calorie malnutrition. He is thin and frail skin. Rectal area identifies erythema as well as the distal sacrum likely incontinence associated. Bilateral heels are boggy with areas of deep tissue injury. Patient is high risk for developing open wounds that would be very difficult to heal. He is at high risk for deep tissue injury. Needs very close monitoring care to ensure plan during hospitalization as can deteriorate quickly. Leukocytosis. Air soft mattress ordered. Turn every 2 hours. Wash sacral and buttock area after incontinence. Apply OPTi foam to sacral and bilateral heels. Offload heels with pillows. Will monitor closely nutritional optimization (4) Leukocytosis Assessment & Plan: Hardware: Right-sided central venous catheter terminates near the junction of the SVC and right atrium. Lungs/pleura: Hyperinflation of the lungs suggestive of COPD. Opacity in the right mid and lower lung may represents combination of small pleural effusion with atelectasis versus pneumonia. Heart/mediastinum: Atherosclerotic calcifications of the aorta. No cardiomegaly. Soft tissues: Unremarkable. Bones: No acute fracture. Upper abdomen: Normal. IMPRESSION: Hyperinflation of the lungs suggestive of COPD. Opacity in the right mid and lower lung may represents combination of small pleural effusion with atelectasis versus pneumonia. worsening deconditioned respiratory decline on bipap on pressors wean will monitor line pna abx as per ID (5) Pneumonia (6) Severe protein-calorie malnutrition Assessment & Plan: DAILY ESTIMATED NEEDS: Needs based on ESRD, HD/ 37.5kg 30-35 kcals/kg 3413-4984 total kcals 1.2-1.8 g protein/kg 45-68 g total protein Fluids per MD NUTRITION DIAGNOSIS: Increased kcal/prot needs R/T ESRD, underweight status as evidenced by HD dependent, severely underweight w/ BMI 13.8 and @ 61% IBW. ADDITIONAL RECOMMENDATIONS: * Per HD record: dry wt on 01/12= 37.5kg (82.5#) -> calibrated bedscale wt, daily wt monitoring * Monitor PO intake closely, rec liberalized REGULAR w/ poor PO * Monitor lytes closely: K and mag wnl, check phos level -> add Nephrovite x 1 * Add Nepro TID w/ meals (425kcal/19g prot per mary) (7) Bleeding Clint Damon January 17, 2020 09:55
--- NOTE | 2020-01-17 10:20 | NUR ---
NURSE NOTES: Dr Rivera rounded on the patient. Showed him patient most recent ABG. Received order for Bicarbonate drip (2amp in 1000mL NS) at 50mL/hr. Order read back, verified, and placed. Addendum: 01/17/20 at 1051 by Korin Pastrana RN Clarified order with Dr Rivera. Changed to 2amp bicarbonate in D5W at 50mL/hr.
--- NOTE | 2020-01-17 10:40 | Pulmonology Progress Note ---
Subjective ROS Limited/Unobtainable: Yes Interval Events: None new Constitutional: Reports: fatigue; Denies: fever HEENT: Repors: no symptoms Respiratory: Reports: no symptoms Cardiovascular: Reports: no symptoms Gastrointestinal/Abdominal: Denies: nausea, vomiting, diarrhea Genitourinary: Reports: no symptoms Psychiatric: Reports: other - NA Skin: Denies: rash Musculoskeletal: Denies: pain Allergies: Coded Allergies: LACTOSE (Unverified Allergy, Unknown, 01/13/20) Objective Last 24 Hour Vital Signs Date Time Temp Pulse Resp B/P (MAP) Pulse Ox O2 Delivery O2 Flow Rate FiO2 01/17/20 10:00 126 27 75/11 (32) 01/17/20 10:00 72/24 01/17/20 09:30 128 27 77/18 (37) 01/17/20 09:15 125 72/29 01/17/20 09:09 127 28 93 100 01/17/20 09:00 74/22 01/17/20 09:00 128 28 72/29 (43) 01/17/20 08:45 128 28 80/16 (37) 01/17/20 08:30 130 29 76/32 (47) 01/17/20 08:15 130 29 77/29 (45) 01/17/20 08:00 100 01/17/20 08:00 74/35 01/17/20 08:00 98.3 131 29 72/25 (41) 01/17/20 08:00 Bi-pap 01/17/20 08:00 131 01/17/20 07:45 131 29 77/29 (45) 01/17/20 07:30 132 29 71/14 (33) 01/17/20 07:17 130 30 93 100 01/17/20 07:15 130 30 79/19 (39) 01/17/20 07:00 74/35 01/17/20 07:00 130 30 75/35 (48) 01/17/20 06:45 131 30 74/23 (40) 01/17/20 06:30 131 29 74/19 (37) 01/17/20 06:15 133 29 79/17 (37) 01/17/20 06:00 79/17 01/17/20 06:00 133 28 76/15 (35) 01/17/20 05:30 135 29 79/29 (46) 01/17/20 05:15 136 30 77/31 (46) 01/17/20 05:12 137 81/18 01/17/20 05:00 137 30 81/18 (39) 01/17/20 05:00 77/31 01/17/20 04:58 137 30 94 100 01/17/20 04:45 137 31 83/20 (41) 01/17/20 04:30 137 29 91/34 (53) 01/17/20 04:15 136 29 86/40 (55) 01/17/20 04:00 Non-Rebreather 15.0 01/17/20 04:00 137 01/17/20 04:00 15.0 01/17/20 04:00 86/40 01/17/20 04:00 97.8 139 32 79/39 (52) 01/17/20 03:55 139 32 76/42 (53) 01/17/20 03:53 137 31 75/31 (46) 01/17/20 03:48 139 30 70/36 (47) 83 01/17/20 03:45 141 33 64/24 (37) 86 01/17/20 03:30 142 31 101/18 (45) 90 01/17/20 03:15 142 31 94/14 (40) 01/17/20 03:08 140 32 91 100 01/17/20 03:00 97.8 140 31 96/18 (44) 01/17/20 03:00 94/14 01/17/20 02:45 138 31 90/17 (41) 01/17/20 02:38 93/24 01/17/20 02:30 139 31 93/24 (47) 01/17/20 02:15 139 30 95/35 (55) 01/17/20 02:00 140 30 96/16 (42) 01/17/20 02:00 95/35 01/17/20 01:45 139 30 98/39 (58) 01/17/20 01:30 140 30 101/15 (43) 01/17/20 01:15 140 30 85/24 (44) 01/17/20 01:11 130 95/20 01/17/20 01:05 141 29 89 100 01/17/20 01:00 140 29 95/20 (45) 01/17/20 01:00 85/24 01/17/20 00:45 140 29 103/33 (56) 01/17/20 00:30 140 29 104/41 (62) 01/17/20 00:15 146 29 103/22 (49) 01/17/20 00:00 146 30 95/44 (61) 01/17/20 00:00 Non-Rebreather 15.0 01/17/20 00:00 15.0 01/17/20 00:00 103/22 01/17/20 00:00 146 01/16/20 23:46 147 28 100/54 (69) 01/16/20 23:45 147 29 100/40 (60) 01/16/20 23:30 146 29 110/26 (54) 01/16/20 23:15 144 30 110/25 (53) 01/16/20 23:03 145 30 95 100 01/16/20 23:00 110/25 01/16/20 23:00 144 27 114/25 (54) 98 01/16/20 22:45 141 27 109/41 (63) 81 01/16/20 22:30 140 28 100/79 (86) 01/16/20 22:15 137 26 109/32 (57) 93 01/16/20 22:00 113/47 01/16/20 22:00 134 27 113/47 (69) 01/16/20 21:45 130 27 115/39 (64) 01/16/20 21:30 130 24 112/48 (69) 75 01/16/20 21:25 126 27 95 90 01/16/20 21:15 130 27 111/22 (51) 01/16/20 21:05 126 108/41 01/16/20 21:00 127 25 108/41 (63) 80 01/16/20 21:00 111/22 01/16/20 20:45 126 23 110/12 (44) 01/16/20 20:30 127 27 112/45 (67) 01/16/20 20:15 126 25 109/47 (67) 88 01/16/20 20:04 128 28 96 100 01/16/20 20:00 132 23 102/52 (69) 01/16/20 20:00 129 01/16/20 20:00 109/47 5/25/20 20:00 Non-Rebreather 15.0 01/16/20 19:30 97.4 132 23 111/20 (50) 01/16/20 19:00 126 19 113/33 (59) 01/16/20 19:00 111/20 01/16/20 18:45 115/44 01/16/20 18:30 122 18 111/35 (60) 01/16/20 18:30 115/54 01/16/20 18:27 127 20 100 01/16/20 18:15 125 18 110/80 (90) 82 01/16/20 18:15 110/80 01/16/20 18:00 126 19 77/17 (37) 01/16/20 18:00 77/17 01/16/20 17:45 128 18 74/15 (34) 100 01/16/20 17:45 74/15 01/16/20 17:36 125 82/13 01/16/20 17:35 128 18 84/51 (62) 100 01/16/20 17:30 94.5 127 17 82/13 (36) 100 01/16/20 17:30 84/51 01/16/20 17:16 104 17 76/34 (48) 100 01/16/20 17:15 78/20 01/16/20 17:02 75/20 01/16/20 17:00 107 19 85/18 (40) 100 01/16/20 16:45 93 17 74/16 (35) 100 01/16/20 16:30 95.0 95 17 76/19 (38) 100 01/16/20 16:24 100.0 01/16/20 16:00 104 01/16/20 16:00 Non-Rebreather 15.0 01/16/20 16:00 99 18 91/19 (43) 100 01/16/20 15:49 95.0 100 17 87/14 (38) 100 01/16/20 14:45 76/42 (53) 01/16/20 12:00 90 01/16/20 12:00 97.6 90 16 94/48 (63) 92 Intake and Output 01/16/20 01/17/20 19:00 07:00 Intake Total 330.234 ml 1326.305 ml Output Total 0 ml Balance 330.234 ml 1326.305 ml IV Total 330.234 ml 1326.305 ml Output Urine Total 0 ml # Voids 1 # Bowel Movements 2 General Appearance: no acute distress HEENT: normocephalic Respiratory: chest wall non-tender, decreased breath sounds Cardiovascular: normal peripheral pulses Abdomen: normal bowel sounds Extremities: no cyanosis Laboratory Tests 01/16/20 15:01: Arterial Blood pH 7.043*L, Arterial Blood Partial Pressure CO2 68.4*H, Arterial Blood Partial Pressure O2 134.9H, Arterial Blood HCO3 18.2L, Arterial Blood Oxygen Saturation 97.2, Arterial Blood Base Excess -12.7*L, Yimi Test Positive 01/16/20 20:28: Arterial Blood pH 7.132*L, Arterial Blood Partial Pressure CO2 62.3*H, Arterial Blood Partial Pressure O2 190.1H, Arterial Blood HCO3 20.4L, Arterial Blood Oxygen Saturation 98.8, Arterial Blood Base Excess -9.3*L, Yimi Test 01/17/20 04:40: White Blood Count 13.4H, Red Blood Count 3.86L, Hemoglobin 11.6L, Hematocrit 37.6L, Mean Corpuscular Volume 98, Mean Corpuscular Hemoglobin 30.1, Mean Corpuscular Hemoglobin Concent 30.9L, Red Cell Distribution Width 21.9H, Platelet Count 90L, Mean Platelet Volume 7.7, Neutrophils (%) (Auto) , Lymphocytes (%) (Auto) , Monocytes (%) (Auto) , Eosinophils (%) (Auto) , Basophils (%) (Auto) , Differential Total Cells Counted 100, Neutrophils % ( Manual) 94H, Lymphocytes % (Manual) 3L, Monocytes % (Manual) 3, Eosinophils % ( Manual) 0, Basophils % (Manual) 0, Band Neutrophils 0, Platelet Estimate DecreasedL, Platelet Morphology Normal, Polychromasia 1+, Hypochromasia 1+, Anisocytosis 2+, Sodium Level 142, Potassium Level 4.6, Chloride Level 107, Carbon Dioxide Level 19L, Anion Gap 16H, Blood Urea Nitrogen 36H, Creatinine 4.2H, Estimat Glomerular Filtration Rate 13.5, Glucose Level 198#H, Calcium Level 7.2L, Phosphorus Level 6.2H, Magnesium Level 1.8, Total Bilirubin 0.7, Aspartate Amino Transf (AST/SGOT) 40H, Alanine Aminotransferase (ALT/SGPT) 20, Alkaline Phosphatase 57, Total Protein 6.1L, Albumin 1.6L, Globulin 4.5, Albumin /Globulin Ratio 0.4L 01/17/20 09:12: Arterial Blood pH 7.055*L, Arterial Blood Partial Pressure CO2 74.3*H, Arterial Blood Partial Pressure O2 239.7H, Arterial Blood HCO3 20.3L, Arterial Blood Oxygen Saturation 99.1, Arterial Blood Base Excess -10.9*L, Yimi Test Positive Current Medications Medications (Trade) Dose Ordered Sig/Dorothy Route PRN Reason Start Time Stop Time Status Last Admin Dose Admin Acetaminophen (Tylenol) 650 mg Q4H PRN ORAL Mild Pain (Pain Scale 1-3) 01/16/20 16:00 02/12/20 15:59 Albuterol/ Ipratropium (Albuterol/ Ipratropium) 3 ml Q6H PRN HHN Shortness of Breath 01/16/20 16:00 01/18/20 15:59 Cefepime HCl 1 gm/ Dextrose 55 ml @ 110 mls/hr Q24H IVPB 01/17/20 09:00 01/21/20 08:59 01/17/20 08:29 Chlorhexidine Gluconate (Wendy-Hex 2%) 1 applic DAILY@2000 TOPIC 01/16/20 20:00 04/15/20 19:59 01/16/20 21:26 Dextrose (Dextrose 50%) 25 ml Q30M PRN IV Hypoglycemia 01/16/20 15:45 04/12/20 18:44 Dextrose (Dextrose 50%) 50 ml Q30M PRN IV Hypoglycemia 01/16/20 15:45 04/12/20 18:44 Diphenhydramine HCl (Benadryl) 25 mg Q6H PRN ORAL Itching/Pruritis 01/16/20 16:00 02/12/20 15:59 Docusate Sodium (Colace) 100 mg EVERY 12 HOURS ORAL 01/16/20 21:00 02/12/20 20:59 Dopamine HCl/ Dextrose 250 ml @ 0 mls/hr Q24H IV 01/16/20 17:00 04/15/20 16:59 01/17/20 02:38 Heparin Sodium/ Sodium Chloride (Heparin 1000 units/500ml Premix) 1,000 unit ONCE PRN IV picc line placement 01/16/20 19:30 01/18/20 19:29 Lidocaine HCl (Xylocaine 1% 30ml) 30 ml ONCE PRN INJ PICC LINE PLACEMENT 01/16/20 19:30 01/18/20 19:29 Metronidazole 100 ml @ 100 mls/hr Q8HR IVPB 01/16/20 22:00 01/20/20 21:59 01/17/20 05:13 Ondansetron HCl (Zofran) 4 mg Q6H PRN IVP Nausea & Vomiting 01/16/20 16:00 02/12/20 15:59 Phenylephrine HCl 50 mg/Dextrose 250 ml @ 0 mls/hr Q24H IV 01/16/20 17:30 02/15/20 17:29 01/17/20 09:15 Sodium Bicarbonate 100 ml/Sodium Chloride 1,100 ml @ 50 mls/hr Q22H IV 01/17/20 11:30 02/16/20 11:29 Vancomycin HCl (Vanco rx to dose) 1 ea DAILY PRN MISC Per rx protocol 01/16/20 16:00 02/15/20 15:59 Assessment/Plan Assessment/Plan IMPRESSION: 1. Pneumonia. 2. Dementia. 3. ESRD, on dialysis. DISCUSSION: Continue oxygen and pulmonary hygiene. Currently saturating 92% on BiPAP HD per renal Will add IV bicarb Broad-spectrum antibiotics. I will follow carefully. Now DNT, DNI Leonid Molina Omar Syed MD January 17, 2020 10:40
[2020-01-17] MEDS: Sodium Bicarbonate 100 ML in D5W 1000ml 1,000 ML IV SCH (11:07)
[2020-01-17] MEDS ORDERED: Sodium Bicarbonate 100 ML in Sodium Chloride 1,000 ML IV SCH ×4 (11:30)
--- NOTE | 2020-01-17 12:00 | NUR ---
NURSE NOTES: Patient mentation remains unchanged. Patient on BiPAP 15/5 with 100% FiO2. RR 12. Patient extremities cold and SpO2 not able to read at this time. Blood pressure remains low at 74/16with phenylephrine at 240mcg/min and dopamine at 20mcg/kg/min. Edema again noted on bilateral upper and lower extremities pitting +3 with weeping noted on upper extremities. Patient oliguric with no output noted. Left upper arm 22 gauge peripheral IV and left wrist 20 gauge peripheral IV both patent, asymptomatic. Right chest Permacath remains asymptomatic and running phenylephrine and dopamine on the venous port at this time. Patient bed in low position with bed alarm on and call light in reach at this time. Patient repositioned. Will continue to monitor.
--- NOTE | 2020-01-17 12:12 | Cardiology Progress Note ---
Assessment/Plan Status: deteriorating Assessment/Plan Assessment/Plan Status: unstable Assessment/Plan: ASSESSMENT: Right PNA ESRD Chest pain Dementia Thrombocytopenia COPD PLAN Unstable in ICU now DNR/DNI On 2 pressers and still hypotensive on dopamine and phenylephrine -Add norepinephrine -Diuresis per nephrology -Echocardiograms to evaluate filling pressures -Poor prognosis likely to in 24-48 hours Subjective Cardiovascular: Reports: lightheadedness Respiratory: Reports: no symptoms Gastrointestinal/Abdominal: Reports: no symptoms Genitourinary: Reports: no symptoms Subjective Transferred to ICU for hypotension and respiratory failure Made DNR/DNI On 2 pressores dopamine and phenylephrine but blood pressures 70s Likely to in next day or two currently on BiPAP Objective Last 24 Hour Vital Signs Date Time Temp Pulse Resp B/P (MAP) Pulse Ox O2 Delivery O2 Flow Rate FiO2 01/17/20 11:30 97.9 120 26 77/13 (34) 01/17/20 11:13 122 26 98 100 01/17/20 11:07 72/19 01/17/20 11:00 122 27 72/19 (36) 01/17/20 11:00 122 27 72/19 (36) 01/17/20 11:00 72/19 01/17/20 10:30 125 26 72/24 (40) 01/17/20 10:00 126 27 75/11 (32) 01/17/20 10:00 72/24 01/17/20 09:30 128 27 77/18 (37) 01/17/20 09:15 125 72/29 01/17/20 09:09 127 28 93 100 01/17/20 09:00 74/22 01/17/20 09:00 128 28 72/29 (43) 01/17/20 08:45 128 28 80/16 (37) 01/17/20 08:30 130 29 76/32 (47) 01/17/20 08:15 130 29 77/29 (45) 01/17/20 08:00 100 01/17/20 08:00 74/35 01/17/20 08:00 98.3 131 29 72/25 (41) 01/17/20 08:00 Bi-pap 01/17/20 08:00 131 01/17/20 07:45 131 29 77/29 (45) 5/26/20 07:30 132 29 71/14 (33) 01/17/20 07:17 130 30 93 100 01/17/20 07:15 130 30 79/19 (39) 01/17/20 07:00 74/35 01/17/20 07:00 130 30 75/35 (48) 01/17/20 06:45 131 30 74/23 (40) 01/17/20 06:30 131 29 74/19 (37) 01/17/20 06:15 133 29 79/17 (37) 01/17/20 06:00 79/17 01/17/20 06:00 133 28 76/15 (35) 01/17/20 05:30 135 29 79/29 (46) 01/17/20 05:15 136 30 77/31 (46) 01/17/20 05:12 137 81/18 01/17/20 05:00 137 30 81/18 (39) 01/17/20 05:00 77/31 01/17/20 04:58 137 30 94 100 01/17/20 04:45 137 31 83/20 (41) 01/17/20 04:30 137 29 91/34 (53) 01/17/20 04:15 136 29 86/40 (55) 01/17/20 04:00 Non-Rebreather 15.0 01/17/20 04:00 137 01/17/20 04:00 15.0 01/17/20 04:00 86/40 01/17/20 04:00 97.8 139 32 79/39 (52) 01/17/20 03:55 139 32 76/42 (53) 01/17/20 03:53 137 31 75/31 (46) 01/17/20 03:48 139 30 70/36 (47) 83 01/17/20 03:45 141 33 64/24 (37) 86 01/17/20 03:30 142 31 101/18 (45) 90 01/17/20 03:15 142 31 94/14 (40) 01/17/20 03:08 140 32 91 100 01/17/20 03:00 97.8 140 31 96/18 (44) 01/17/20 03:00 94/14 01/17/20 02:45 138 31 90/17 (41) 5/26/20 02:38 93/24 01/17/20 02:30 139 31 93/24 (47) 01/17/20 02:15 139 30 95/35 (55) 01/17/20 02:00 140 30 96/16 (42) 01/17/20 02:00 95/35 01/17/20 01:45 139 30 98/39 (58) 01/17/20 01:30 140 30 101/15 (43) 01/17/20 01:15 140 30 85/24 (44) 01/17/20 01:11 130 95/20 01/17/20 01:05 141 29 89 100 01/17/20 01:00 140 29 95/20 (45) 01/17/20 01:00 85/24 01/17/20 00:45 140 29 103/33 (56) 01/17/20 00:30 140 29 104/41 (62) 01/17/20 00:15 146 29 103/22 (49) 01/17/20 00:00 146 30 95/44 (61) 01/17/20 00:00 Non-Rebreather 15.0 01/17/20 00:00 15.0 01/17/20 00:00 103/22 01/17/20 00:00 146 01/16/20 23:46 147 28 100/54 (69) 01/16/20 23:45 147 29 100/40 (60) 01/16/20 23:30 146 29 110/26 (54) 01/16/20 23:15 144 30 110/25 (53) 01/16/20 23:03 145 30 95 100 01/16/20 23:00 110/25 01/16/20 23:00 144 27 114/25 (54) 98 01/16/20 22:45 141 27 109/41 (63) 81 01/16/20 22:30 140 28 100/79 (86) 01/16/20 22:15 137 26 109/32 (57) 93 01/16/20 22:00 113/47 01/16/20 22:00 134 27 113/47 (69) 01/16/20 21:45 130 27 115/39 (64) 01/16/20 21:30 130 24 112/48 (69) 75 01/16/20 21:25 126 27 95 90 01/16/20 21:15 130 27 111/22 (51) 01/16/20 21:05 126 108/41 01/16/20 21:00 127 25 108/41 (63) 80 01/16/20 21:00 111/22 01/16/20 20:45 126 23 110/12 (44) 01/16/20 20:30 127 27 112/45 (67) 01/16/20 20:15 126 25 109/47 (67) 88 01/16/20 20:04 128 28 96 100 01/16/20 20:00 132 23 102/52 (69) 01/16/20 20:00 129 01/16/20 20:00 109/47 01/16/20 20:00 Non-Rebreather 15.0 01/16/20 19:30 97.4 132 23 111/20 (50) 01/16/20 19:00 126 19 113/33 (59) 01/16/20 19:00 111/20 01/16/20 18:45 115/44 01/16/20 18:30 122 18 111/35 (60) 01/16/20 18:30 115/54 01/16/20 18:27 127 20 100 01/16/20 18:15 125 18 110/80 (90) 82 01/16/20 18:15 110/80 01/16/20 18:00 126 19 77/17 (37) 01/16/20 18:00 77/17 01/16/20 17:45 128 18 74/15 (34) 100 01/16/20 17:45 74/15 01/16/20 17:36 125 82/13 01/16/20 17:35 128 18 84/51 (62) 100 01/16/20 17:30 94.5 127 17 82/13 (36) 100 01/16/20 17:30 84/51 01/16/20 17:16 104 17 76/34 (48) 100 01/16/20 17:15 78/20 01/16/20 17:02 75/20 01/16/20 17:00 107 19 85/18 (40) 100 01/16/20 16:45 93 17 74/16 (35) 100 01/16/20 16:30 95.0 95 17 76/19 (38) 100 01/16/20 16:24 100.0 01/16/20 16:00 104 01/16/20 16:00 Non-Rebreather 15.0 01/16/20 16:00 99 18 91/19 (43) 100 01/16/20 15:49 95.0 100 17 87/14 (38) 100 01/16/20 14:45 76/42 (53) General Appearance: moderate distress, lethargic EENT: PERRL/EOMI, normal ENT inspection, TMs normal Neck: JVD Rhythm: ST Cardiovascular: tachycardia, gallop/S4 Respiratory/Chest: accessory muscle use, crackles/rales Abdomen: normal bowel sounds, non tender, soft, no organomegaly, no mass Extremities: normal range of motion, non-tender, normal inspection 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 Intake and Output 01/16/20 01/17/20 19:00 07:00 Intake Total 330.234 ml 1326.305 ml Output Total 0 ml Balance 330.234 ml 1326.305 ml IV Total 330.234 ml 1326.305 ml Output Urine Total 0 ml # Voids 1 # Bowel Movements 2 Laboratory Tests Test 01/16/20 15:01 01/16/20 20:28 01/17/20 04:40 01/17/20 09:12 Arterial Blood pH 7.043 (7.350-7.450) 7.132 (7.350-7.450) 7.055 (7.350-7.450) Arterial Blood Partial Pressure CO2 68.4 mmHg (35.0-45.0) *H 62.3 mmHg (35.0-45.0) *H 74.3 mmHg (35.0-45.0) *H Arterial Blood Partial Pressure O2 134.9 mmHg (75.0-100.0) H 190.1 mmHg (75.0-100.0) H 239.7 mmHg (75.0-100.0) H Arterial Blood HCO3 18.2 mmol/L (22.0-26.0) L 20.4 mmol/L (22.0-26.0) L 20.3 mmol/L (22.0-26.0) L Arterial Blood Oxygen Saturation 97.2 % (95-100) 98.8 % (95-100) 99.1 % (95-100) Arterial Blood Base Excess -12.7 (-2-2) *L -9.3 (-2-2) *L -10.9 (-2-2) *L Yimi Test Positive Positive White Blood Count 13.4 K/UL (4.8-10.8) H Red Blood Count 3.86 M/UL (4.70-6.10) L Hemoglobin 11.6 G/DL (14.2-18.0) L Hematocrit 37.6 % (42.0-52.0) L Mean Corpuscular Volume 98 FL (80-99) Mean Corpuscular Hemoglobin 30.1 PG (27.0-31.0) Mean Corpuscular Hemoglobin Concent 30.9 G/DL (32.0-36.0) L Red Cell Distribution Width 21.9 % (11.6-14.8) H Platelet Count 90 K/UL (150-450) L Mean Platelet Volume 7.7 FL (6.5-10.1) Neutrophils (%) (Auto) % (45.0-75.0) Lymphocytes (%) (Auto) % (20.0-45.0) Monocytes (%) (Auto) % (1.0-10.0) Eosinophils (%) (Auto) % (0.0-3.0) Basophils (%) (Auto) % (0.0-2.0) Differential Total Cells Counted 100 Neutrophils % (Manual) 94 % (45-75) H Lymphocytes % (Manual) 3 % (20-45) L Monocytes % (Manual) 3 % (1-10) Eosinophils % (Manual) 0 % (0-3) Basophils % (Manual) 0 % (0-2) Band Neutrophils 0 % (0-8) Platelet Estimate Decreased L Platelet Morphology Normal Polychromasia 1+ Hypochromasia 1+ Anisocytosis 2+ Sodium Level 142 MMOL/L (136-145) Potassium Level 4.6 MMOL/L (3.5-5.1) Chloride Level 107 MMOL/L (98-107) Carbon Dioxide Level 19 MMOL/L (21-32) L Anion Gap 16 mmol/L (5-15) H Blood Urea Nitrogen 36 mg/dL (7-18) H Creatinine 4.2 MG/DL (0.55-1.30) H Estimat Glomerular Filtration Rate 13.5 mL/min (>60) Glucose Level 198 MG/DL (74-106) #H Calcium Level 7.2 MG/DL (8.5-10.1) L Phosphorus Level 6.2 MG/DL (2.5-4.9) H Magnesium Level 1.8 MG/DL (1.8-2.4) Total Bilirubin 0.7 MG/DL (0.2-1.0) Aspartate Amino Transf (AST/SGOT) 40 U/L (15-37) H Alanine Aminotransferase (ALT/SGPT) 20 U/L (12-78) Alkaline Phosphatase 57 U/L (46-116) Total Protein 6.1 G/DL (6.4-8.2) L Albumin 1.6 G/DL (3.4-5.0) L Globulin 4.5 g/dL Albumin/Globulin Ratio 0.4 (1.0-2.7) L Stefan Rapp MD January 17, 2020 12:12
[2020-01-17] MEDS: Norepinephrine 4mg/NS Premix 250 ML IV SCH ×3 (12:51→17:44)
[2020-01-17] MEDS: Phenylephrine 100 MG in D5W 240 ML IV SCH ×2 (12:51→19:59)
--- NOTE | 2020-01-17 12:54 | NUR ---
CLINICAL PROGRAM COORDINATOR NOTE Per chart review, pt is non-verbal and unresponsive, covid -ve. Per nursing note, pt's son Tim Medrano signed the POLST for DNR and DNI on 01/16/2020. The original POLST is placed in the chart. Emergency contacts: Tim Cooley(son, signed POLST) [phone] Nanci Berg (daughter) [phone] Stefan (son) [phone]
--- NOTE | 2020-01-17 13:27 | NUR ---
NURSE NOTES:WOUND CARE NOTES:Pt deconditioned. Hands and feet are both mottled and cool to touch.. Pt noted to have multiple areas of non-blanching erythema. Large area of non-blanching erythema noted to R scapula, Mid-thoracic spine, R and L iliacs, Sacrum ,R and L ischial tuberosities. Non-blanching erythema noted to R and L heels , R and L lateral malleoli. Poor tissue perfusion noted,pt developed areas of erythema after being positioned for short period of time on R and L hips. Cavilon Skin Barrier wipes applied to all affected bony prominences and each affected areas were covered with Optifoam drsgs. Pt positioned with pillows and with both heels floated with pillows off mattress.
--- NOTE | 2020-01-17 13:30 | Nephrology Progress Note ---
Assessment/Plan Plan #ESRD on MWF via R IJ catheter #Septic shock #severe acidosis - combined metabolic and respiratory acidosis #possible chest pain ? #possible sepsis #possible aspiration pneumonia #Possible pneumonia #Advanced dementia -patient not hemodynamically stable for HD -continue pressors to maintain MAP over 65- on dopa, levo and phenylephrine - on bipap - DNI/DNR - vancomycin, cefepime and flagyl - follow cx - ID eval - pulm eval - breathing tx prn - monitor mag, phos, BMP daily Time spent 35 minutes to CCT Subjective ROS Limited/Unobtainable: Yes Subjective PULPER TENDER called for hypotension transferred to icu yesterday on 3 pressors on Bipap with worsening acidosis now DNR/DNI Objective Objective Last 24 Hour Vital Signs Date Time Temp Pulse Resp B/P (MAP) Pulse Ox O2 Delivery O2 Flow Rate FiO2 01/17/20 12:51 71/16 01/17/20 12:51 117 71/16 01/17/20 12:00 117 01/17/20 12:00 Bi-pap 01/17/20 12:00 100 01/17/20 12:00 117 24 74/16 (35) 91 01/17/20 11:30 97.9 120 26 77/13 (34) 01/17/20 11:13 122 26 98 100 01/17/20 11:07 72/19 01/17/20 11:00 122 27 72/19 (36) 01/17/20 11:00 122 27 72/19 (36) 01/17/20 11:00 72/19 01/17/20 10:30 125 26 72/24 (40) 01/17/20 10:00 126 27 75/11 (32) 01/17/20 10:00 72/24 01/17/20 09:30 128 27 77/18 (37) 01/17/20 09:15 125 72/29 01/17/20 09:09 127 28 93 100 01/17/20 09:00 74/22 01/17/20 09:00 128 28 72/29 (43) 01/17/20 08:45 128 28 80/16 (37) 01/17/20 08:30 130 29 76/32 (47) 01/17/20 08:15 130 29 77/29 (45) 01/17/20 08:00 100 01/17/20 08:00 74/35 01/17/20 08:00 98.3 131 29 72/25 (41) 01/17/20 08:00 Bi-pap 01/17/20 08:00 131 01/17/20 07:45 131 29 77/29 (45) 01/17/20 07:30 132 29 71/14 (33) 01/17/20 07:17 130 30 93 100 01/17/20 07:15 130 30 79/19 (39) 01/17/20 07:00 74/35 01/17/20 07:00 130 30 75/35 (48) 01/17/20 06:45 131 30 74/23 (40) 01/17/20 06:30 131 29 74/19 (37) 01/17/20 06:15 133 29 79/17 (37) 01/17/20 06:00 79/17 01/17/20 06:00 133 28 76/15 (35) 01/17/20 05:30 135 29 79/29 (46) 01/17/20 05:15 136 30 77/31 (46) 01/17/20 05:12 137 81/18 01/17/20 05:00 137 30 81/18 (39) 01/17/20 05:00 77/31 01/17/20 04:58 137 30 94 100 01/17/20 04:45 137 31 83/20 (41) 01/17/20 04:30 137 29 91/34 (53) 01/17/20 04:15 136 29 86/40 (55) 01/17/20 04:00 Non-Rebreather 15.0 01/17/20 04:00 137 01/17/20 04:00 15.0 01/17/20 04:00 86/40 01/17/20 04:00 97.8 139 32 79/39 (52) 01/17/20 03:55 139 32 76/42 (53) 01/17/20 03:53 137 31 75/31 (46) 01/17/20 03:48 139 30 70/36 (47) 83 01/17/20 03:45 141 33 64/24 (37) 86 01/17/20 03:30 142 31 101/18 (45) 90 01/17/20 03:15 142 31 94/14 (40) 01/17/20 03:08 140 32 91 100 01/17/20 03:00 97.8 140 31 96/18 (44) 01/17/20 03:00 94/14 01/17/20 02:45 138 31 90/17 (41) 01/17/20 02:38 93/24 01/17/20 02:30 139 31 93/24 (47) 01/17/20 02:15 139 30 95/35 (55) 01/17/20 02:00 140 30 96/16 (42) 01/17/20 02:00 95/35 01/17/20 01:45 139 30 98/39 (58) 01/17/20 01:30 140 30 101/15 (43) 01/17/20 01:15 140 30 85/24 (44) 01/17/20 01:11 130 95/20 01/17/20 01:05 141 29 89 100 01/17/20 01:00 140 29 95/20 (45) 01/17/20 01:00 85/24 01/17/20 00:45 140 29 103/33 (56) 01/17/20 00:30 140 29 104/41 (62) 01/17/20 00:15 146 29 103/22 (49) 01/17/20 00:00 146 30 95/44 (61) 01/17/20 00:00 Non-Rebreather 15.0 01/17/20 00:00 15.0 01/17/20 00:00 103/22 01/17/20 00:00 146 01/16/20 23:46 147 28 100/54 (69) 01/16/20 23:45 147 29 100/40 (60) 01/16/20 23:30 146 29 110/26 (54) 01/16/20 23:15 144 30 110/25 (53) 01/16/20 23:03 145 30 95 100 01/16/20 23:00 110/25 01/16/20 23:00 144 27 114/25 (54) 98 01/16/20 22:45 141 27 109/41 (63) 81 01/16/20 22:30 140 28 100/79 (86) 01/16/20 22:15 137 26 109/32 (57) 93 01/16/20 22:00 113/47 01/16/20 22:00 134 27 113/47 (69) 01/16/20 21:45 130 27 115/39 (64) 01/16/20 21:30 130 24 112/48 (69) 75 01/16/20 21:25 126 27 95 90 01/16/20 21:15 130 27 111/22 (51) 01/16/20 21:05 126 108/41 01/16/20 21:00 127 25 108/41 (63) 80 01/16/20 21:00 111/22 01/16/20 20:45 126 23 110/12 (44) 01/16/20 20:30 127 27 112/45 (67) 01/16/20 20:15 126 25 109/47 (67) 88 01/16/20 20:04 128 28 96 100 01/16/20 20:00 132 23 102/52 (69) 01/16/20 20:00 129 01/16/20 20:00 109/47 01/16/20 20:00 Non-Rebreather 15.0 01/16/20 19:30 97.4 132 23 111/20 (50) 01/16/20 19:00 126 19 113/33 (59) 01/16/20 19:00 111/20 01/16/20 18:45 115/44 01/16/20 18:30 122 18 111/35 (60) 01/16/20 18:30 115/54 01/16/20 18:27 127 20 100 01/16/20 18:15 125 18 110/80 (90) 82 01/16/20 18:15 110/80 01/16/20 18:00 126 19 77/17 (37) 01/16/20 18:00 77/17 01/16/20 17:45 128 18 74/15 (34) 100 01/16/20 17:45 74/15 01/16/20 17:36 125 82/13 01/16/20 17:35 128 18 84/51 (62) 100 01/16/20 17:30 94.5 127 17 82/13 (36) 100 20 17:30 84/51 01/16/20 17:16 104 17 76/34 (48) 100 01/16/20 17:15 78/20 01/16/20 17:02 75/20 01/16/20 17:00 107 19 85/18 (40) 100 01/16/20 16:45 93 17 74/16 (35) 100 01/16/20 16:30 95.0 95 17 76/19 (38) 100 01/16/20 16:24 100.0 01/16/20 16:00 104 01/16/20 16:00 Non-Rebreather 15.0 01/16/20 16:00 99 18 91/19 (43) 100 01/16/20 15:49 95.0 100 17 87/14 (38) 100 01/16/20 14:45 76/42 (53) Intake and Output 01/16/20 01/17/20 18:59 06:59 Intake Total 45.985 ml 1409.638 ml Output Total 0 ml Balance 45.985 ml 1409.638 ml IV Total 45.985 ml 1409.638 ml Output Urine Total 0 ml # Voids 1 # Bowel Movements 2 Laboratory Tests 01/16/20 15:01: Arterial Blood pH 7.043*L, Arterial Blood Partial Pressure CO2 68.4*H, Arterial Blood Partial Pressure O2 134.9H, Arterial Blood HCO3 18.2L, Arterial Blood Oxygen Saturation 97.2, Arterial Blood Base Excess -12.7*L, Yimi Test Positive 01/16/20 20:28: Arterial Blood pH 7.132*L, Arterial Blood Partial Pressure CO2 62.3*H, Arterial Blood Partial Pressure O2 190.1H, Arterial Blood HCO3 20.4L, Arterial Blood Oxygen Saturation 98.8, Arterial Blood Base Excess -9.3*L, Yimi Test 01/17/20 04:40: White Blood Count 13.4H, Red Blood Count 3.86L, Hemoglobin 11.6L, Hematocrit 37.6L, Mean Corpuscular Volume 98, Mean Corpuscular Hemoglobin 30.1, Mean Corpuscular Hemoglobin Concent 30.9L, Red Cell Distribution Width 21.9H, Platelet Count 90L, Mean Platelet Volume 7.7, Neutrophils (%) (Auto) , Lymphocytes (%) (Auto) , Monocytes (%) (Auto) , Eosinophils (%) (Auto) , Basophils (%) (Auto) , Differential Total Cells Counted 100, Neutrophils % ( Manual) 94H, Lymphocytes % (Manual) 3L, Monocytes % (Manual) 3, Eosinophils % ( Manual) 0, Basophils % (Manual) 0, Band Neutrophils 0, Platelet Estimate DecreasedL, Platelet Morphology Normal, Polychromasia 1+, Hypochromasia 1+, Anisocytosis 2+, Sodium Level 142, Potassium Level 4.6, Chloride Level 107, Carbon Dioxide Level 19L, Anion Gap 16H, Blood Urea Nitrogen 36H, Creatinine 4.2H, Estimat Glomerular Filtration Rate 13.5, Glucose Level 198#H, Calcium Level 7.2L, Phosphorus Level 6.2H, Magnesium Level 1.8, Total Bilirubin 0.7, Aspartate Amino Transf (AST/SGOT) 40H, Alanine Aminotransferase (ALT/SGPT) 20, Alkaline Phosphatase 57, Total Protein 6.1L, Albumin 1.6L, Globulin 4.5, Albumin /Globulin Ratio 0.4L 01/17/20 09:12: Arterial Blood pH 7.055*L, Arterial Blood Partial Pressure CO2 74.3*H, Arterial Blood Partial Pressure O2 239.7H, Arterial Blood HCO3 20.3L, Arterial Blood Oxygen Saturation 99.1, Arterial Blood Base Excess -10.9*L, Yimi Test Positive Height (Feet): 5 Height (Inches): 5.00 Weight (Pounds): 85 Objective General Appearance: on bipap Lines, tubes and drains: peripheral HEENT: normocephalic, atraumatic Neck: non-tender Respiratory/Chest: chest wall non-tender, lungs clear Cardiovascular/Chest: normal peripheral pulses, no JVD Abdomen: normal bowel sounds Extremities: trace edema Skin Exam: no diaphoresis Neurologic: disoriented Ying Londono M.D. January 17, 2020 13:30
--- NOTE | 2020-01-17 14:00 | NUR ---
NURSE NOTES: Patient blood pressure 96/23. Patient now on Levophed at 30mcg/min as well as phenylephrine at 240mcg/min and dopamine at 20mcg/kg/min. Patient breathing shallow on BiPAP 15/5 at FiO2 100%. SpO2 not reading at this time. Patient bed in low position with bed alarm on and call light in reach. Patient repositioned. Will continue to monitor.
--- NOTE | 2020-01-17 15:08 | NUR ---
Discontinue GROCERY SUPERVISOR orders Order received and acknowledged from Dr. Londono for Bedside Swallow Evaluation on 01/14/20. Chart reviewed, Patient was transferred to ICU on 01/16/20 s/p JACK SETTER for hypotension. Patient is now on Bipap, VITALS: HR: 134; RR: 25 SP02 94% FI02 100% Patient is not appropriate for GROCERY SUPERVISOR Bedside Swallow Evaluation at this time; Per notes, Patient is nonverbal, unresponsive, requiring Bipap, and unstable in ICU. Discontinue GROCERY SUPERVISOR orders at this time as Patient is not appropriate for PO trials, further, presenting as a high risk for aspiration. Patient may benefit from GROCERY SUPERVISOR re-referral when Patient is stable, off Bipap, and able to participate in PO trials for swallow evaluation.
--- NOTE | 2020-01-17 15:13 | NUR ---
CASE MANAGEMENT: REVIEW 84 YEAR OLD MALE BIBA FROM [facility] CC: SOB . COUGH . CONGESTION SI: PNA . COVID-19 R/O T 97.9 HR 100 RR 18 BP 93/52 SAT 95% NC/2L WBC 11.0 CHLORIDE 109 CR 2.3 GLUCOSE 72 ABG: PH 7.043 PCO2 68.4 PO2 134.9 HCO3 18.2 BASE -12.7 IS: CEFEPIME IV X1 NS IVF BOLUS X1 SODIUM BICARB IV X1 VANCOMYCIN IV X1 PATIENT ADMITTED TO ICU 01/13/2020 DCP: PATIENT IS FROM HOME
--- NOTE | 2020-01-17 15:29 | Internal Med Progress Note ---
Subjective Date of Service: January 17, 2020 Physician Name ToritoRoxanna Attending Physician Ying Londono M.D. Current Medications Medications (Trade) Dose Ordered Sig/Dorothy Route PRN Reason Start Time Stop Time Status Last Admin Dose Admin Acetaminophen (Tylenol) 650 mg Q4H PRN ORAL Mild Pain (Pain Scale 1-3) 01/16/20 16:00 02/12/20 15:59 Albuterol/ Ipratropium (Albuterol/ Ipratropium) 3 ml Q6H PRN HHN Shortness of Breath 01/16/20 16:00 01/18/20 15:59 Cefepime HCl 1 gm/ Dextrose 55 ml @ 110 mls/hr Q24H IVPB 01/17/20 09:00 01/21/20 08:59 01/17/20 08:29 Chlorhexidine Gluconate (Wendy-Hex 2%) 1 applic DAILY@2000 TOPIC 01/16/20 20:00 04/15/20 19:59 01/16/20 21:26 Dextrose (Dextrose 50%) 25 ml Q30M PRN IV Hypoglycemia 01/16/20 15:45 04/12/20 18:44 Dextrose (Dextrose 50%) 50 ml Q30M PRN IV Hypoglycemia 01/16/20 15:45 04/12/20 18:44 Diphenhydramine HCl (Benadryl) 25 mg Q6H PRN ORAL Itching/Pruritis 01/16/20 16:00 02/12/20 15:59 Docusate Sodium (Colace) 100 mg EVERY 12 HOURS ORAL 01/16/20 21:00 02/12/20 20:59 Dopamine HCl/ Dextrose 250 ml @ 0 mls/hr Q24H IV 01/16/20 17:00 04/15/20 16:59 01/17/20 11:07 Heparin Sodium/ Sodium Chloride (Heparin 1000 units/500ml Premix) 1,000 unit ONCE PRN IV picc line placement 01/16/20 19:30 01/18/20 19:29 Lidocaine HCl (Xylocaine 1% 30ml) 30 ml ONCE PRN INJ PICC LINE PLACEMENT 01/16/20 19:30 01/18/20 19:29 Metronidazole 100 ml @ 100 mls/hr Q8HR IVPB 01/16/20 22:00 01/20/20 21:59 01/17/20 15:00 Norepinephrine Bitartrate 250 ml @ 0 mls/hr Q24H IV 01/17/20 12:30 04/16/20 12:29 01/17/20 15:19 Ondansetron HCl (Zofran) 4 mg Q6H PRN IVP Nausea & Vomiting 01/16/20 16:00 02/12/20 15:59 Phenylephrine HCl 100 mg/Dextrose 250 ml @ 0 mls/hr Q24H IV 01/17/20 13:00 02/16/20 12:59 01/17/20 12:51 Sodium Bicarbonate 100 ml/Dextrose 1,100 ml @ 50 mls/hr Q22H IV 01/17/20 11:30 02/16/20 11:29 01/17/20 11:07 Vancomycin HCl (Vanco rx to dose) 1 ea DAILY PRN MISC Per rx protocol 01/16/20 16:00 02/15/20 15:59 Allergies: Coded Allergies: LACTOSE (Unverified Allergy, Unknown, 01/13/20) Subjective Yesterday an SALESPERSON [employer] was called on patient after he became acutely hypoxic and hypotensive; he was transferred to ICU, currently on BiPAP and pressors. He is DNR/DNI. ABG noted. Suspect patient aspirated. Objective Last Vital Signs Date Time Temp Pulse Resp B/P (MAP) Pulse Ox O2 Delivery O2 Flow Rate FiO2 01/17/20 15:19 92/01/17/20 14:49 134 25 94 100 01/17/20 12:00 Bi-pap 01/17/20 11:30 97.9 01/17/20 04:00 15.0 Laboratory Tests Test 01/16/20 20:28 01/17/20 04:40 01/17/20 09:12 Arterial Blood pH 7.132 (7.350-7.450) 7.055 (7.350-7.450) Arterial Blood Partial Pressure CO2 62.3 mmHg (35.0-45.0) *H 74.3 mmHg (35.0-45.0) *H Arterial Blood Partial Pressure O2 190.1 mmHg (75.0-100.0) H 239.7 mmHg (75.0-100.0) H Arterial Blood HCO3 20.4 mmol/L (22.0-26.0) L 20.3 mmol/L (22.0-26.0) L Arterial Blood Oxygen Saturation 98.8 % (95-100) 99.1 % (95-100) Arterial Blood Base Excess -9.3 (-2-2) *L -10.9 (-2-2) *L Yimi Test Positive White Blood Count 13.4 K/UL (4.8-10.8) H Red Blood Count 3.86 M/UL (4.70-6.10) L Hemoglobin 11.6 G/DL (14.2-18.0) L Hematocrit 37.6 % (42.0-52.0) L Mean Corpuscular Volume 98 FL (80-99) Mean Corpuscular Hemoglobin 30.1 PG (27.0-31.0) Mean Corpuscular Hemoglobin Concent 30.9 G/DL (32.0-36.0) L Red Cell Distribution Width 21.9 % (11.6-14.8) H Platelet Count 90 K/UL (150-450) L Mean Platelet Volume 7.7 FL (6.5-10.1) Neutrophils (%) (Auto) % (45.0-75.0) Lymphocytes (%) (Auto) % (20.0-45.0) Monocytes (%) (Auto) % (1.0-10.0) Eosinophils (%) (Auto) % (0.0-3.0) Basophils (%) (Auto) % (0.0-2.0) Differential Total Cells Counted 100 Neutrophils % (Manual) 94 % (45-75) H Lymphocytes % (Manual) 3 % (20-45) L Monocytes % (Manual) 3 % (1-10) Eosinophils % (Manual) 0 % (0-3) Basophils % (Manual) 0 % (0-2) Band Neutrophils 0 % (0-8) Platelet Estimate Decreased L Platelet Morphology Normal Polychromasia 1+ Hypochromasia 1+ Anisocytosis 2+ Sodium Level 142 MMOL/L (136-145) Potassium Level 4.6 MMOL/L (3.5-5.1) Chloride Level 107 MMOL/L (98-107) Carbon Dioxide Level 19 MMOL/L (21-32) L Anion Gap 16 mmol/L (5-15) H Blood Urea Nitrogen 36 mg/dL (7-18) H Creatinine 4.2 MG/DL (0.55-1.30) H Estimat Glomerular Filtration Rate 13.5 mL/min (>60) Glucose Level 198 MG/DL (74-106) #H Calcium Level 7.2 MG/DL (8.5-10.1) L Phosphorus Level 6.2 MG/DL (2.5-4.9) H Magnesium Level 1.8 MG/DL (1.8-2.4) Total Bilirubin 0.7 MG/DL (0.2-1.0) Aspartate Amino Transf (AST/SGOT) 40 U/L (15-37) H Alanine Aminotransferase (ALT/SGPT) 20 U/L (12-78) Alkaline Phosphatase 57 U/L (46-116) Total Protein 6.1 G/DL (6.4-8.2) L Albumin 1.6 G/DL (3.4-5.0) L Globulin 4.5 g/dL Albumin/Globulin Ratio 0.4 (1.0-2.7) L Intake and Output 01/16/20 01/17/20 19:00 07:00 Intake Total 330.234 ml 1326.305 ml Output Total 0 ml Balance 330.234 ml 1326.305 ml IV Total 330.234 ml 1326.305 ml Output Urine Total 0 ml # Voids 1 # Bowel Movements 2 Objective General Appearance: On Bipap 100 % Fi02 EENT: PERRL/EOMI Cardiovascular: currently on pressor support , shock Respiratory/Chest: lungs clear, normal breath sounds, no respiratory distress Abdomen: soft 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 Will continue pressor support and BIpap support Roxanna Ugarte D.O. January 17, 2020 15:29
--- NOTE | 2020-01-17 16:00 | NUR ---
NURSE NOTES: Patient mentation remains unchanged. Patient on BiPAP 15/5 with 100% FiO2. RR 12. Patient extremities cold and SpO2 not able to read at this time. Blood pressure remains low at 102/23 with phenylephrine at 240mcg/min, levophed at 30mcg/min, and dopamine at 20mcg/kg/min. Edema again noted on bilateral upper and lower extremities pitting +3 with weeping noted on upper extremities. Patient oliguric with no output noted. Left upper arm 22 gauge peripheral IV and left wrist 20 gauge peripheral IV both patent, asymptomatic. Right chest Permacath remains asymptomatic and running phenylephrine, levophed, and dopamine on the venous port at this time. Patient bed in low position with bed alarm on and call light in reach at this time. Patient repositioned and oral care performed. Will continue to monitor.
--- NOTE | 2020-01-17 16:12 | NUR ---
NURSE NOTES: Received call from patient's son, notified him regarding patient current condition. Notified him that patient condition declining. The son asked if intubation would be beneficial for his father. Told him that he should speak with Dr Londono regarding this question. The son reported the he already has the office number of Dr Londono. Addendum: 01/17/20 at 1914 by Korin Pastrana RN Spoke with Dr Londono via telephone call. He reported that he spoke with the patient's son. Received notification that patient is to remain DNR/DNI with full treatment.
--- NOTE | 2020-01-17 18:00 | NUR ---
NURSE NOTES: Patient blood pressure 87/16. Patient remains on Levophed at 30mcg/min as well as phenylephrine at 240mcg/min and dopamine at 20mcg/kg/min. Patient breathing remains shallow on BiPAP 15/5 at FiO2 100%. SpO2 not reading at this time. Patient bed in low position with bed alarm on and call light in reach. Patient repositioned. Will continue to monitor.
--- NOTE | 2020-01-17 19:07 | NUR ---
RESPIRATORY NOTE: Received pt on BiPAP 15/5, Backup rate 12, 100%. Pt on a Full Face mask, skin intact, no redness/breakdowns noted. Pt drowsy/lethargic/disoriented. B/S alesia. diminished, nonproductive cough. BiPAP plugged into red outlet, alarms on & audible. Pt in no apparent distress at this time. SpO2 getting harder to obtain. RN aware. Will continue to monitor pt.
--- NOTE | 2020-01-17 19:15 | NUR ---
HAND-OFF: Report given to WINDY Trujillo.
--- NOTE | 2020-01-17 19:20 | NUR ---
NURSE NOTES: Received patient and report from WINDY Langley. Pt's obtunded. DNR/DNI. Nonverbal, non responsive, eyes open, pupils sluggish. BP 81/20, HR 130, R23, O2 not reading. Temp 98.3F. Pt's hands cold to touch, on low temp rose hugger. Pt's current on max of Dopanine, max Phenylephrine and max of Levophed via right upper chest Permacath. Patient on Bipap 15/5 on 100%. Sinus tachycardia noted on the mechanical technician. Pt's NPO at this time. No BM/ urine at this time. Patient has sacral and bilateral heel erythema and ecchymosis on bilateral upper extremities. +3 Pitting edema noted on bilateral upper and lower extremities . Skin tear noted on right forearm. Noted right upper arm 22 gauge peripheral IV and left wrist 20 gauge peripheral IV.Both patent and intact. HOB keep semi-jin. Patient bed in low position with bed alarm on and call light in reach. Will continue to monitor.
[2020-01-17] MEDS: Dyna-Hex 2% Top Sol 2oz TOPIC SCH (20:15)
[2020-01-17] MEDS: Norepinephrine Bitartrate 8 MG in Sodium Chloride 492 ML IV SCH (20:17)
--- NOTE | 2020-01-17 21:12 | Infectious Diseases Prog Note ---
Assessment/Plan Assessment/Plan ASSESSMENT AND PLAN: 1. sepsis/shock, ? aspiration pna/hcap, leukocytosis, pna, covid-19 pcr test negative - change to meropenem and vancomycin - f/u on labs and chest x-ray, repeat blood cultures - wound care per protocol - bipap, pressors - DNR/DNI - poor prognosis 2. End-stage renal disease, on hemodialysis. 3. Chronic kidney disease. 4. Depression. 5. Alzheimer's. 6. Dementia. 7. Aspiration risk. 8. Diabetes. 9. Hypertension. 10. Blood sugar and blood pressure treatment for diabetes and hypertension per primary care team. 11. Allergies to lactulose. No antibiotic allergies. 12. Social history is negative. 13. Family history noncontributory. 14. MAR was noted. 15. Case discussed with RN. 16. Continue treatment per primary consultants. Subjective Constitutional: Reports: fatigue, other - sob, on bipap; Denies: fever HEENT: Reports: congestion Respiratory: Reports: shortness of breath Cardiovascular: Reports: other - + pressors Gastrointestinal/Abdominal: Denies: nausea, vomiting, diarrhea Genitourinary: Reports: other - no gallagher Neurologic: Denies: headache Psychiatric: Reports: other - NA Skin: Denies: rash Hematologic: Denies: bleeding Musculoskeletal: Reports: other - NA Allergies: Coded Allergies: LACTOSE (Unverified Allergy, Unknown, 01/13/20) Objective Vital Signs Last 24 Hour Vital Signs Date Time Temp Pulse Resp B/P (MAP) Pulse Ox O2 Delivery O2 Flow Rate FiO2 01/17/20 20:45 137 24 80 100 01/17/20 20:18 81/13 01/17/20 20:17 81/12 01/17/20 20:00 Bi-pap 01/17/20 20:00 100 01/17/20 19:59 132 85/12 01/17/20 19:04 117 22 89 100 01/17/20 19:00 120 21 90/23 (45) 01/17/20 19:00 89/15 01/17/20 18:30 100 17 91/15 (40) 0 01/17/20 18:00 94 14 87/16 (39) 0 01/17/20 18:00 74/16 01/17/20 17:44 84/17 5/26/20 17:30 92 15 84/17 (39) 0 01/17/20 17:00 87 20 83/13 (36) 01/17/20 17:00 83/13 01/17/20 16:30 93 14 50/31 (37) 01/17/20 16:23 98 14 98/14 (42) 01/17/20 16:00 97.6 123 24 102/23 (49) 01/17/20 16:00 134 01/17/20 16:00 Bi-pap 01/17/20 16:00 102/20 01/17/20 16:00 100 01/17/20 15:30 133 25 99/24 (49) 01/17/20 15:19 92/22 01/17/20 15:00 130 22 98/20 (46) 01/17/20 15:00 92/22 01/17/20 14:49 134 25 94 100 01/17/20 14:30 134 25 94/25 (48) 01/17/20 14:00 130 26 96/23 (47) 01/17/20 14:00 96/27 01/17/20 13:30 125 26 92/17 (42) 01/17/20 13:00 119 26 84/16 (38) 97 01/17/20 13:00 83/23 01/17/20 12:51 71/16 01/17/20 12:51 117 71/16 01/17/20 12:30 117 27 73/12 (32) 88 01/17/20 12:00 117 01/17/20 12:00 Bi-pap 01/17/20 12:00 72/19 01/17/20 12:00 100 01/17/20 12:00 117 24 74/16 (35) 91 01/17/20 11:30 97.9 120 26 77/13 (34) 01/17/20 11:13 122 26 98 100 01/17/20 11:07 72/19 01/17/20 11:00 122 27 72/19 (36) 01/17/20 11:00 122 27 72/19 (36) 01/17/20 11:00 72/19 01/17/20 10:30 125 26 72/24 (40) 01/17/20 10:00 126 27 75/11 (32) 01/17/20 10:00 72/24 01/17/20 09:30 128 27 77/18 (37) 01/17/20 09:15 125 72/29 01/17/20 09:09 127 28 93 100 01/17/20 09:00 74/22 01/17/20 09:00 128 28 72/29 (43) 01/17/20 08:45 128 28 80/16 (37) 01/17/20 08:30 130 29 76/32 (47) 01/17/20 08:15 130 29 77/29 (45) 01/17/20 08:00 100 01/17/20 08:00 74/35 01/17/20 08:00 98.3 131 29 72/25 (41) 01/17/20 08:00 Bi-pap 01/17/20 08:00 131 01/17/20 07:45 131 29 77/29 (45) 01/17/20 07:30 132 29 71/14 (33) 01/17/20 07:17 130 30 93 100 01/17/20 07:15 130 30 79/19 (39) 01/17/20 07:00 74/35 01/17/20 07:00 130 30 75/35 (48) 01/17/20 06:45 131 30 74/23 (40) 01/17/20 06:30 131 29 74/19 (37) 01/17/20 06:15 133 29 79/17 (37) 01/17/20 06:00 79/17 01/17/20 06:00 133 28 76/15 (35) 01/17/20 05:30 135 29 79/29 (46) 01/17/20 05:15 136 30 77/31 (46) 01/17/20 05:12 137 81/18 01/17/20 05:00 137 30 81/18 (39) 01/17/20 05:00 77/31 01/17/20 04:58 137 30 94 100 01/17/20 04:45 137 31 83/20 (41) 01/17/20 04:30 137 29 91/34 (53) 01/17/20 04:15 136 29 86/40 (55) 01/17/20 04:00 Non-Rebreather 15.0 01/17/20 04:00 137 01/17/20 04:00 100 01/17/20 04:00 86/40 01/17/20 04:00 97.8 139 32 79/39 (52) 01/17/20 03:55 139 32 76/42 (53) 01/17/20 03:53 137 31 75/31 (46) 01/17/20 03:48 139 30 70/36 (47) 83 01/17/20 03:45 141 33 64/24 (37) 86 01/17/20 03:30 142 31 101/18 (45) 90 01/17/20 03:15 142 31 94/14 (40) 01/17/20 03:08 140 32 91 100 01/17/20 03:00 97.8 140 31 96/18 (44) 01/17/20 03:00 94/14 01/17/20 02:45 138 31 90/17 (41) 01/17/20 02:38 93/24 01/17/20 02:30 139 31 93/24 (47) 01/17/20 02:15 139 30 95/35 (55) 01/17/20 02:00 140 30 96/16 (42) 01/17/20 02:00 95/35 01/17/20 01:45 139 30 98/39 (58) 01/17/20 01:30 140 30 101/15 (43) 01/17/20 01:15 140 30 85/24 (44) 01/17/20 01:11 130 95/20 01/17/20 01:05 141 29 89 100 01/17/20 01:00 140 29 95/20 (45) 01/17/20 01:00 85/24 01/17/20 00:45 140 29 103/33 (56) 01/17/20 00:30 140 29 104/41 (62) 01/17/20 00:15 146 29 103/22 (49) 01/17/20 00:00 146 30 95/44 (61) 01/17/20 00:00 Non-Rebreather 15.0 01/17/20 00:00 100 01/17/20 00:00 103/22 01/17/20 00:00 146 01/16/20 23:46 147 28 100/54 (69) 01/16/20 23:45 147 29 100/40 (60) 01/16/20 23:30 146 29 110/26 (54) 01/16/20 23:15 144 30 110/25 (53) 01/16/20 23:03 145 30 95 100 01/16/20 23:00 110/25 01/16/20 23:00 144 27 114/25 (54) 98 01/16/20 22:45 141 27 109/41 (63) 81 01/16/20 22:30 140 28 100/79 (86) 01/16/20 22:15 137 26 109/32 (57) 93 01/16/20 22:00 113/47 01/16/20 22:00 134 27 113/47 (69) 01/16/20 21:45 130 27 115/39 (64) 01/16/20 21:30 130 24 112/48 (69) 75 01/16/20 21:25 126 27 95 90 01/16/20 21:15 130 27 111/22 (51) Height (Feet): 5 Height (Inches): 5.00 Weight (Pounds): 85 General Appearance: other - lethargic, on bipap, HEENT: normocephalic, atraumatic, anicteric, other - sob, on bipap Respiratory/Chest: crackles/rales, rhonchi - bilaterally Cardiovascular: regular rhythm, tachycardia Abdomen: normal bowel sounds, soft, non tender, no organomegaly, non distended Genitourinary: other - no gallagher, hd patient Extremities: no cyanosis Skin: no rash 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 Opacity in the right mid and lower lung may represents combination of small pleural effusion with atelectasis versus pneumonia. Microbiology Date/Time Source Procedure Growth Status 01/13/20 16:45 Blood Blood Culture - Preliminary NO GROWTH AFTER 72 HOURS Resulted 01/13/20 16:45 Nasal Nares MRSA Culture - Final NO METHICILLIN RESISTANT STAPH AUREUS... Complete 01/13/20 16:45 Rectum - Final NO CARBAPENEM-RESISTANT ENTEROBACTERI... Complete Microbiology Date/Time Source Procedure Growth Status 01/13/20 16:45 Blood Blood Culture - Preliminary NO GROWTH AFTER 72 HOURS Resulted 01/13/20 16:45 Nasal Nares MRSA Culture - Final NO METHICILLIN RESISTANT STAPH AUREUS... Complete 01/13/20 16:45 Rectum - Final NO CARBAPENEM-RESISTANT ENTEROBACTERI... Complete Laboratory Tests Test 01/17/20 04:40 01/17/20 09:12 White Blood Count 13.4 K/UL (4.8-10.8) H Red Blood Count 3.86 M/UL (4.70-6.10) L Hemoglobin 11.6 G/DL (14.2-18.0) L Hematocrit 37.6 % (42.0-52.0) L Mean Corpuscular Volume 98 FL (80-99) Mean Corpuscular Hemoglobin 30.1 PG (27.0-31.0) Mean Corpuscular Hemoglobin Concent 30.9 G/DL (32.0-36.0) L Red Cell Distribution Width 21.9 % (11.6-14.8) H Platelet Count 90 K/UL (150-450) L Mean Platelet Volume 7.7 FL (6.5-10.1) Neutrophils (%) (Auto) % (45.0-75.0) Lymphocytes (%) (Auto) % (20.0-45.0) Monocytes (%) (Auto) % (1.0-10.0) Eosinophils (%) (Auto) % (0.0-3.0) Basophils (%) (Auto) % (0.0-2.0) Differential Total Cells Counted 100 Neutrophils % (Manual) 94 % (45-75) H Lymphocytes % (Manual) 3 % (20-45) L Monocytes % (Manual) 3 % (1-10) Eosinophils % (Manual) 0 % (0-3) Basophils % (Manual) 0 % (0-2) Band Neutrophils 0 % (0-8) Platelet Estimate Decreased L Platelet Morphology Normal Polychromasia 1+ Hypochromasia 1+ Anisocytosis 2+ Sodium Level 142 MMOL/L (136-145) Potassium Level 4.6 MMOL/L (3.5-5.1) Chloride Level 107 MMOL/L (98-107) Carbon Dioxide Level 19 MMOL/L (21-32) L Anion Gap 16 mmol/L (5-15) H Blood Urea Nitrogen 36 mg/dL (7-18) H Creatinine 4.2 MG/DL (0.55-1.30) H Estimat Glomerular Filtration Rate 13.5 mL/min (>60) Glucose Level 198 MG/DL (74-106) #H Calcium Level 7.2 MG/DL (8.5-10.1) L Phosphorus Level 6.2 MG/DL (2.5-4.9) H Magnesium Level 1.8 MG/DL (1.8-2.4) Total Bilirubin 0.7 MG/DL (0.2-1.0) Aspartate Amino Transf (AST/SGOT) 40 U/L (15-37) H Alanine Aminotransferase (ALT/SGPT) 20 U/L (12-78) Alkaline Phosphatase 57 U/L (46-116) Total Protein 6.1 G/DL (6.4-8.2) L Albumin 1.6 G/DL (3.4-5.0) L Globulin 4.5 g/dL Albumin/Globulin Ratio 0.4 (1.0-2.7) L Arterial Blood pH 7.055 (7.350-7.450) Arterial Blood Partial Pressure CO2 74.3 mmHg (35.0-45.0) *H Arterial Blood Partial Pressure O2 239.7 mmHg (75.0-100.0) H Arterial Blood HCO3 20.3 mmol/L (22.0-26.0) L Arterial Blood Oxygen Saturation 99.1 % (95-100) Arterial Blood Base Excess -10.9 (-2-2) *L Yimi Test Positive Current Medications Medications (Trade) Dose Ordered Sig/Dorothy Route PRN Reason Start Time Stop Time Status Last Admin Dose Admin Acetaminophen (Tylenol) 650 mg Q4H PRN ORAL Mild Pain (Pain Scale 1-3) 01/16/20 16:00 02/12/20 15:59 Albuterol/ Ipratropium (Albuterol/ Ipratropium) 3 ml Q6H PRN HHN Shortness of Breath 01/16/20 16:00 01/18/20 15:59 Cefepime HCl 1 gm/ Dextrose 55 ml @ 110 mls/hr Q24H IVPB 01/17/20 09:00 01/21/20 08:59 01/17/20 08:29 Chlorhexidine Gluconate (Wendy-Hex 2%) 1 applic DAILY@2000 TOPIC 01/16/20 20:00 04/15/20 19:59 01/17/20 20:15 Dextrose (Dextrose 50%) 25 ml Q30M PRN IV Hypoglycemia 01/16/20 15:45 04/12/20 18:44 Dextrose (Dextrose 50%) 50 ml Q30M PRN IV Hypoglycemia 01/16/20 15:45 04/12/20 18:44 Diphenhydramine HCl (Benadryl) 25 mg Q6H PRN ORAL Itching/Pruritis 01/16/20 16:00 02/12/20 15:59 Docusate Sodium (Colace) 100 mg EVERY 12 HOURS ORAL 01/16/20 21:00 02/12/20 20:59 Dopamine HCl/ Dextrose 250 ml @ 0 mls/hr Q24H IV 01/16/20 17:00 04/15/20 16:59 01/17/20 20:18 Heparin Sodium/ Sodium Chloride (Heparin 1000 units/500ml Premix) 1,000 unit ONCE PRN IV picc line placement 01/16/20 19:30 01/18/20 19:29 Lidocaine HCl (Xylocaine 1% 30ml) 30 ml ONCE PRN INJ PICC LINE PLACEMENT 01/16/20 19:30 01/18/20 19:29 Metronidazole 100 ml @ 100 mls/hr Q8HR IVPB 01/16/20 22:00 01/20/20 21:59 01/17/20 15:00 Norepinephrine Bitartrate 8 mg/ Sodium Chloride 500 ml @ 0 mls/hr Q24H IV 01/17/20 21:00 02/16/20 20:59 01/17/20 20:17 Ondansetron HCl (Zofran) 4 mg Q6H PRN IVP Nausea & Vomiting 01/16/20 16:00 02/12/20 15:59 Phenylephrine HCl 100 mg/Dextrose 250 ml @ 0 mls/hr Q24H IV 01/17/20 13:00 02/16/20 12:59 01/17/20 19:59 Sodium Bicarbonate 100 ml/Dextrose 1,100 ml @ 50 mls/hr Q22H IV 01/17/20 11:30 02/16/20 11:29 01/17/20 11:07 Vancomycin HCl (Vanco rx to dose) 1 ea DAILY PRN MISC Per rx protocol 01/16/20 16:00 02/15/20 15:59 Marleny Rainey MD January 17, 2020 21:12
--- NOTE | 2020-01-17 22:00 | NUR ---
NURSE NOTES: Pt's in bed, obtunded, on max of Levophed, Dopamine and Phenylephrine. DNR/DNI status. Will continue to monitor.
[2020-01-18] VITALS (76 sets, daily range): BP systolic 32–189; BP diastolic 10–139
--- NOTE | 2020-01-18 | NUR ---
NURSE NOTES: Pt's deteriorating. BP 88/10 on max of 3 pressors. Bipap 15/5, 100%. MD made aware. Family - son Tim made aware. Will continue to monitor.
[2020-01-18] MEDS: Norepinephrine Bitartrate 8 MG in Sodium Chloride 492 ML IV SCH ×5 (00:48→18:24)
--- NOTE | 2020-01-18 02:00 | NUR ---
NURSE NOTES: Pt's in bed, in no acute distress. Will continue to monitor.
--- NOTE | 2020-01-18 04:00 | NUR ---
NURSE NOTES: Pt's in bed, obtunded, in no acute distress. On max of Levophed, Dopamine, Phenylephrine. SBP in the 60s. Will continue to monitor.
[2020-01-18] MEDS: Phenylephrine 100 MG in D5W 240 ML IV SCH ×2 (04:15→11:17)
[2020-01-18] MEDS: DOPamine 400mg/250ml 250 ML IV SCH ×3 (05:26→14:20)
[2020-01-18 05:42] LABS: HEMATOCRIT 30.3 % (42.0-52.0); MEAN CORPUSCULAR VOLUME 100 FL (80-99); PLATELET COUNT 53 K/UL (150-450); RED BLOOD COUNT 3.03 M/UL (4.70-6.10); RED CELL DISTRIBUTION WIDTH 20.1 % (11.6-14.8); WHITE BLOOD COUNT 10.6 K/UL (4.8-10.8)
--- NOTE | 2020-01-18 06:00 | NUR ---
NURSE NOTES: Pt's in bed, obtunded, in no acute distress. On max of Levophed, Dopamine, Phenylephrine. SBP in the 60s. Will continue to monitor.
[2020-01-18 06:30] LABS: ALANINE AMINOTRANSFERASE 16 U/L (12-78); ALBUMIN 1.1 G/DL (3.4-5.0); ALBUMIN/GLOBULIN RATIO 0.3 (1.0-2.7); ALKALINE PHOSPHATASE 43 U/L (46-116); ANION GAP 6 mmol/L (5-15); ASPARTATE AMINO TRANSFERASE 59 U/L (15-37); BILIRUBIN,TOTAL 0.6 MG/DL (0.2-1.0); BLOOD UREA NITROGEN 40 mg/dL (7-18); CALCIUM 6.7 MG/DL (8.5-10.1); CARBON DIOXIDE 23 MMOL/L (21-32); CHLORIDE 106 MMOL/L (98-107); CREATININE 4.4 MG/DL (0.55-1.30); PHOSPHORUS 7.5 MG/DL (2.5-4.9); POTASSIUM 5.1 MMOL/L (3.5-5.1); SODIUM 135 MMOL/L (136-145)
--- NOTE | 2020-01-18 07:24 | NUR ---
HAND-OFF: Report given to WINDY Boyce.
--- NOTE | 2020-01-18 07:35 | NUR ---
NURSE NOTES: LATE ENTRY: RECEIVED REPORT FROM BACH. Arredondo PT IN BED, FRAIL APPEARING. DOES NOT OPEN EYES, OBTUNDED, NON RESPONSIVE TO PAIN. GAG ABSENT. VS: 104, 62/15, 12%, 22. LABORED BREATHS. ON BIPAP 15/5, [id number]%. ABDOMEN FLAT, NON TENDER. NO BM. NO URINE. PITTING 3+ AND WEEPING EXTREMITIES. SKIN- SEE ASSESSMENT. BILATERAL RADIAL PULSES WEAK/ THREADY. RT FA PUFFY, 22G, RT CHEST PERMA CATH. LEVOPHED 30CG/MIN, DOPAMINE 20MCG/KG/MIN, PHENYLEPHRINE 240MCG/MIN. D5W@ 50ML/HR. WILL CONTINUE TO MONITOR PT. STANDARD PRECAUTIONS IN PLACE.
[2020-01-18] MEDS: Docusate 100mg cap ORAL SCH ×2 (08:39→21:00)
[2020-01-18] MEDS: Sodium Bicarbonate 100 ML in D5W 1000ml 1,000 ML IV SCH (08:40)
--- NOTE | 2020-01-18 09:39 | NUR ---
NURSE NOTES: able to return phone call to son Tim Segura. no answer, left message to call back for update on father status. awaiting call back.
--- NOTE | 2020-01-18 09:44 | NUR ---
NURSE NOTES: called Md Ontiveros to update, regarding pt decline. sbp 65/41, hr 92, sating 60's. maxed on three pressors. pt dnr/dni
--- NOTE | 2020-01-18 10:18 | NUR ---
RADIOLOGY DEPT., CHEST X-RAY DONE.-P.DYE
--- NOTE | 2020-01-18 10:52 | Diagnostic Imaging Report ---
Indication: Shortness of breath Technique: One view of the chest Comparison: 01/15/2020 Findings: Lungs are somewhat hyperinflated.: New or increased pleural fluid is seen on the right. The left lung and pleural space are clear. Prominent interstitial markings are seen in the right midlung, probably unchanged allowing for differences in degree of rotation. Right jugular tunneled dialysis catheter is again demonstrated Impression: There are increased right pleural effusion Persistent right lung parenchymal disease
--- NOTE | 2020-01-18 10:55 | Nephrology Progress Note ---
Assessment/Plan Plan #ESRD on MWF via R IJ catheter #Septic shock #severe acidosis - combined metabolic and respiratory acidosis #possible chest pain ? #possible sepsis #possible aspiration pneumonia #Possible pneumonia #Advanced dementia -patient not hemodynamically stable for HD -continue pressors to maintain MAP over 65- on dopa, levo and phenylephrine - on bipap - DNI/DNR - vancomycin, cefepime and flagyl - follow cx - ID eval - pulm eval - breathing tx prn - monitor mag, phos, BMP daily Time spent 35 minutes to CCT Subjective ROS Limited/Unobtainable: Yes Subjective on 3 pressors on Bipap with worsening acidosis now DNR/DNI Objective Objective Last 24 Hour Vital Signs Date Time Temp Pulse Resp B/P (MAP) Pulse Ox O2 Delivery O2 Flow Rate FiO2 01/18/20 10:32 80 14 60/11 (27) 01/18/20 10:30 79 14 48/18 (28) 01/18/20 10:15 84 17 56/12 (27) 37 01/18/20 10:08 10.0 45 01/18/20 10:00 97 25 62/27 (39) 01/18/20 09:50 94 14 77/10 (32) 47 01/18/20 09:49 94 21 71/12 (31) 01/18/20 09:31 106 17 65/16 (32) 58 01/18/20 09:30 107 16 61/16 (31) 71 01/18/20 09:22 120 16 32/20 (24) 01/18/20 09:15 116 14 56/16 (29) 45 01/18/20 09:00 113 15 60/14 (29) 01/18/20 08:45 115 18 61/18 (32) 01/18/20 08:30 102 30 65/14 (31) 01/18/20 08:15 100 29 68/13 (31) 01/18/20 08:00 104 01/18/20 08:00 100.0 100 21 79/22 (41) 01/18/20 08:00 4.0 01/18/20 07:05 100 12 100 01/18/20 07:00 113 18 59/11 (27) 01/18/20 07:00 65/18 01/18/20 07:00 65/18 01/18/20 06:45 113 17 62/15 (31) 01/18/20 06:30 110 18 68/14 (32) 01/18/20 06:15 106 26 64/16 (32) 01/18/20 06:00 64/16 01/18/20 06:00 64/16 01/18/20 06:00 99 25 62/16 (31) 34 01/18/20 05:45 102 24 66/13 (30) 01/18/20 05:30 104 26 69/13 (31) 01/18/20 05:27 77/17 01/18/20 05:26 77/17 01/18/20 05:15 104 25 77/17 (37) 01/18/20 05:06 103 12 100 01/18/20 05:00 69/11 01/18/20 05:00 69/11 01/18/20 05:00 97.5 101 23 71/13 (32) 59 01/18/20 04:45 99 22 69/11 (30) 69 01/18/20 04:30 99 20 68/12 (30) 79 01/18/20 04:15 99 24 71/16 (34) 01/18/20 04:15 100 71/14 01/18/20 04:00 Bi-pap 01/18/20 04:00 71/16 01/18/20 04:00 71/16 01/18/20 04:00 100 01/18/20 04:00 100 01/18/20 04:00 100 24 71/14 (33) 01/18/20 03:45 99 26 71/15 (33) 78 01/18/20 03:30 97 27 72/12 (32) 47 01/18/20 03:15 98 26 73/10 (31) 01/18/20 03:00 100 21 68/21 (37) 72 01/18/20 03:00 72/13 01/18/20 03:00 72/13 01/18/20 02:55 97 12 100 01/18/20 02:45 113 23 72/52 (59) 01/18/20 02:30 116 23 82/13 (36) 01/18/20 02:15 115 23 86/11 (36) 01/18/20 02:00 117 24 84/22 (42) 01/18/20 02:00 84/22 01/18/20 02:00 84/22 01/18/20 01:45 117 24 81/10 (33) 01/18/20 01:30 121 24 88/16 (40) 01/18/20 01:15 119 24 84/11 (35) 01/18/20 01:15 120 12 100 01/18/20 01:00 115 23 82/12 (35) 01/18/20 01:00 86/15 01/18/20 01:00 86/15 01/18/20 00:48 85/14 01/18/20 00:45 112 24 83/10 (34) 01/18/20 00:30 111 23 85/14 (37) 01/18/20 00:15 109 23 81/14 (36) 01/18/20 00:00 97.0 107 24 88/10 (36) 01/18/20 00:00 88/10 01/18/20 00:00 88/10 01/18/20 00:00 Bi-pap 01/18/20 00:00 100 01/18/20 00:00 116 01/17/20 23:45 105 23 84/12 (36) 01/17/20 23:30 102 23 87/12 (37) 01/17/20 23:15 101 24 83/10 (34) 01/17/20 23:00 98 22 85/11 (35) 01/17/20 23:00 85/11 01/17/20 23:00 85/11 01/17/20 22:50 98 14 100 01/17/20 22:45 98 24 80/13 (35) 01/17/20 22:30 110 26 89/15 (39) 74 01/17/20 22:15 115 28 91/28 (49) 81 01/17/20 22:00 92/15 01/17/20 22:00 92/15 01/17/20 22:00 118 26 92/15 (40) 86 01/17/20 21:45 120 28 89/13 (38) 89 01/17/20 21:30 123 27 89/19 (42) 91 01/17/20 21:15 124 27 83/15 (37) 93 01/17/20 21:00 129 27 81/14 (36) 99 01/17/20 21:00 83/15 01/17/20 21:00 83/15 01/17/20 20:45 137 24 80 100 01/17/20 20:45 133 27 81/20 (40) 100 01/17/20 20:30 135 28 85/13 (37) 72 01/17/20 20:18 81/13 01/17/20 20:17 81/12 01/17/20 20:15 136 27 82/13 (36) 0 01/17/20 20:00 Bi-pap 01/17/20 20:00 133 28 81/12 (35) 1 01/17/20 20:00 82/13 01/17/20 20:00 100 01/17/20 20:00 113 01/17/20 19:59 132 85/12 01/17/20 19:45 132 27 85/12 (36) 1 01/17/20 19:30 97.8 129 25 86/30 (48) 01/17/20 19:04 117 22 89 100 01/17/20 19:00 120 21 90/23 (45) 01/17/20 19:00 89/15 01/17/20 18:30 100 17 91/15 (40) 0 01/17/20 18:00 94 14 87/16 (39) 0 01/17/20 18:00 74/16 01/17/20 17:44 84/17 01/17/20 17:30 92 15 84/17 (39) 0 01/17/20 17:00 87 20 83/13 (36) 01/17/20 17:00 83/13 01/17/20 16:30 93 14 50/31 (37) 01/17/20 16:23 98 14 98/14 (42) 01/17/20 16:00 97.6 123 24 102/23 (49) 01/17/20 16:00 134 01/17/20 16:00 Bi-pap 01/17/20 16:00 102/20 01/17/20 16:00 100 01/17/20 15:30 133 25 99/24 (49) 01/17/20 15:19 92/22 01/17/20 15:00 130 22 98/20 (46) 01/17/20 15:00 92/22 01/17/20 14:49 134 25 94 100 01/17/20 14:30 134 25 94/25 (48) 01/17/20 14:00 130 26 96/23 (47) 01/17/20 14:00 96/27 01/17/20 13:30 125 26 92/17 (42) 01/17/20 13:00 119 26 84/16 (38) 97 01/17/20 13:00 83/23 01/17/20 12:51 71/16 01/17/20 12:51 117 71/16 01/17/20 12:30 117 27 73/12 (32) 88 01/17/20 12:00 117 01/17/20 12:00 Bi-pap 01/17/20 12:00 72/19 01/17/20 12:00 100 01/17/20 12:00 117 24 74/16 (35) 91 01/17/20 11:30 97.9 120 26 77/13 (34) 01/17/20 11:13 122 26 98 100 01/17/20 11:07 72/19 01/17/20 11:00 122 27 72/19 (36) 01/17/20 11:00 122 27 72/19 (36) 01/17/20 11:00 Intake and Output 01/17/20 01/18/20 19:00 07:00 Intake Total 1977.177 ml 2778.992 ml Output Total 0 ml 0 ml Balance 1977.177 ml 2778.992 ml IV Total 1977.177 ml 2778.992 ml Output Urine Total 0 ml 0 ml Laboratory Tests 01/18/20 03:45: White Blood Count 10.6, Red Blood Count 3.03L, Hemoglobin 9.0L, Hematocrit 30.3L , Mean Corpuscular Volume 100H, Mean Corpuscular Hemoglobin 29.7, Mean Corpuscular Hemoglobin Concent 29.8L, Red Cell Distribution Width 20.1H, Platelet Count 53L, Mean Platelet Volume 8.9, Neutrophils (%) (Auto) , Lymphocytes (%) (Auto) , Monocytes (%) (Auto) , Eosinophils (%) (Auto) , Basophils (%) (Auto) , Differential Total Cells Counted 100, Neutrophils % ( Manual) 76H, Lymphocytes % (Manual) 5L, Monocytes % (Manual) 8, Eosinophils % ( Manual) 0, Basophils % (Manual) 0, Band Neutrophils 11H, Platelet Estimate DecreasedL, Platelet Morphology Normal, Hypochromasia 1+, Anisocytosis 2+, Macrocytosis 2+, Sodium Level 135L, Potassium Level 5.1, Chloride Level 106, Carbon Dioxide Level 23, Anion Gap 6, Blood Urea Nitrogen 40H, Creatinine 4.4H, Estimat Glomerular Filtration Rate 12.8, Glucose Level 166H, Calcium Level 6.7L , Phosphorus Level 7.5H, Magnesium Level 1.7L, Total Bilirubin 0.6, Aspartate Amino Transf (AST/SGOT) 59H, Alanine Aminotransferase (ALT/SGPT) 16, Alkaline Phosphatase 43L, Total Protein 4.7L, Albumin 1.1L, Globulin 3.6, Albumin/ Globulin Ratio 0.3L Height (Feet): 5 Height (Inches): 5.00 Weight (Pounds): 90 Objective General Appearance: on bipap Lines, tubes and drains: peripheral HEENT: normocephalic, atraumatic Neck: non-tender Respiratory/Chest: chest wall non-tender, lungs clear Cardiovascular/Chest: normal peripheral pulses, no JVD Abdomen: normal bowel sounds Extremities: trace edema Skin Exam: no diaphoresis Neurologic: disoriented Ying Londono M.D. January 18, 2020 10:55
--- NOTE | 2020-01-18 11:59 | Infectious Diseases Prog Note ---
Assessment/Plan Assessment/Plan ASSESSMENT AND PLAN: 1. sepsis/shock, ? aspiration pna/hcap, leukocytosis, pna, covid-19 pcr test negative - meropenem and vancomycin - f/u on labs and chest x-ray, repeat blood cultures - wound care per protocol - bipap, pressors - DNR/DNI - poor prognosis 2. End-stage renal disease, on hemodialysis. 3. Chronic kidney disease. 4. Depression. 5. Alzheimer's. 6. Dementia. 7. Aspiration risk. 8. Diabetes. 9. Hypertension. 10. Blood sugar and blood pressure treatment for diabetes and hypertension per primary care team. 11. Allergies to lactulose. No antibiotic allergies. 12. Social history is negative. 13. Family history noncontributory. 14. MAR was noted. 15. Case discussed with RN. 16. Continue treatment per primary consultants. Subjective Constitutional: Reports: other - + pressors HEENT: Reports: congestion Respiratory: Reports: shortness of breath Cardiovascular: Reports: other - + pressors Gastrointestinal/Abdominal: Denies: nausea, vomiting Allergies: Coded Allergies: LACTOSE (Unverified Allergy, Unknown, 01/13/20) Objective Vital Signs Last 24 Hour Vital Signs Date Time Temp Pulse Resp B/P (MAP) Pulse Ox O2 Delivery O2 Flow Rate FiO2 01/18/20 11:30 62 11 83/15 (37) 6 01/18/20 11:17 98 69/40 01/18/20 11:17 69/40 01/18/20 11:16 69/40 01/18/20 11:15 78 13 50/13 (25) 22 01/18/20 11:00 79 11 76/18 (37) 26 01/18/20 10:32 80 14 60/11 (27) 01/18/20 10:30 79 14 48/18 (28) 01/18/20 10:15 84 17 56/12 (27) 37 01/18/20 10:08 10.0 45 01/18/20 10:00 97 25 62/27 (39) 01/18/20 09:50 94 14 77/10 (32) 47 01/18/20 09:49 94 21 71/12 (31) 01/18/20 09:31 106 17 65/16 (32) 58 01/18/20 09:30 107 16 61/16 (31) 71 5/27/20 09:22 120 16 32/20 (24) 01/18/20 09:15 116 14 56/16 (29) 45 01/18/20 09:00 113 15 60/14 (29) 01/18/20 08:45 115 18 61/18 (32) 01/18/20 08:30 102 30 65/14 (31) 01/18/20 08:15 100 29 68/13 (31) 01/18/20 08:00 104 01/18/20 08:00 Bi-pap 01/18/20 08:00 100.0 100 21 79/22 (41) 01/18/20 08:00 4.0 01/18/20 07:05 100 12 100 01/18/20 07:00 113 18 59/11 (27) 01/18/20 07:00 65/18 01/18/20 07:00 65/18 01/18/20 06:45 113 17 62/15 (31) 01/18/20 06:30 110 18 68/14 (32) 01/18/20 06:15 106 26 64/16 (32) 01/18/20 06:00 64/16 01/18/20 06:00 64/16 01/18/20 06:00 99 25 62/16 (31) 34 01/18/20 05:45 102 24 66/13 (30) 01/18/20 05:30 104 26 69/13 (31) 01/18/20 05:27 77/17 01/18/20 05:26 77/17 01/18/20 05:15 104 25 77/17 (37) 01/18/20 05:06 103 12 100 01/18/20 05:00 69/11 01/18/20 05:00 69/11 01/18/20 05:00 97.5 101 23 71/13 (32) 59 01/18/20 04:45 99 22 69/11 (30) 69 01/18/20 04:30 99 20 68/12 (30) 79 01/18/20 04:15 99 24 71/16 (34) 01/18/20 04:15 100 71/14 01/18/20 04:00 Bi-pap 01/18/20 04:00 71/16 01/18/20 04:00 71/16 5/27/20 04:00 100 01/18/20 04:00 100 01/18/20 04:00 100 24 71/14 (33) 01/18/20 03:45 99 26 71/15 (33) 78 01/18/20 03:30 97 27 72/12 (32) 47 01/18/20 03:15 98 26 73/10 (31) 01/18/20 03:00 100 21 68/21 (37) 72 01/18/20 03:00 72/13 01/18/20 03:00 72/13 01/18/20 02:55 97 12 100 01/18/20 02:45 113 23 72/52 (59) 01/18/20 02:30 116 23 82/13 (36) 01/18/20 02:15 115 23 86/11 (36) 01/18/20 02:00 117 24 84/22 (42) 01/18/20 02:00 84/22 01/18/20 02:00 84/22 01/18/20 01:45 117 24 81/10 (33) 01/18/20 01:30 121 24 88/16 (40) 01/18/20 01:15 119 24 84/11 (35) 01/18/20 01:15 120 12 100 01/18/20 01:00 115 23 82/12 (35) 01/18/20 01:00 86/15 01/18/20 01:00 86/15 01/18/20 00:48 85/14 01/18/20 00:45 112 24 83/10 (34) 01/18/20 00:30 111 23 85/14 (37) 01/18/20 00:15 109 23 81/14 (36) 01/18/20 00:00 97.0 107 24 88/10 (36) 01/18/20 00:00 88/10 01/18/20 00:00 88/10 01/18/20 00:00 Bi-pap 01/18/20 00:00 100 01/18/20 00:00 116 01/17/20 23:45 105 23 84/12 (36) 01/17/20 23:30 102 23 87/12 (37) 01/17/20 23:15 101 24 83/10 (34) 01/17/20 23:00 98 22 85/11 (35) 01/17/20 23:00 85/11 01/17/20 23:00 85/11 01/17/20 22:50 98 14 100 01/17/20 22:45 98 24 80/13 (35) 01/17/20 22:30 110 26 89/15 (39) 74 01/17/20 22:15 115 28 91/28 (49) 81 01/17/20 22:00 92/15 01/17/20 22:00 92/15 01/17/20 22:00 118 26 92/15 (40) 86 01/17/20 21:45 120 28 89/13 (38) 89 01/17/20 21:30 123 27 89/19 (42) 91 01/17/20 21:15 124 27 83/15 (37) 93 01/17/20 21:00 129 27 81/14 (36) 99 01/17/20 21:00 83/15 01/17/20 21:00 83/15 01/17/20 20:45 137 24 80 100 01/17/20 20:45 133 27 81/20 (40) 100 01/17/20 20:30 135 28 85/13 (37) 72 01/17/20 20:18 81/13 01/17/20 20:17 81/12 01/17/20 20:15 136 27 82/13 (36) 0 01/17/20 20:00 Bi-pap 01/17/20 20:00 133 28 81/12 (35) 1 01/17/20 20:00 82/13 01/17/20 20:00 100 01/17/20 20:00 113 01/17/20 19:59 132 85/12 01/17/20 19:45 132 27 85/12 (36) 1 01/17/20 19:30 97.8 129 25 86/30 (48) 01/17/20 19:04 117 22 89 100 01/17/20 19:00 120 21 90/23 (45) 01/17/20 19:00 89/15 01/17/20 18:30 100 17 91/15 (40) 0 01/17/20 18:00 94 14 87/16 (39) 0 01/17/20 18:00 74/16 01/17/20 17:44 84/17 01/17/20 17:30 92 15 84/17 (39) 0 01/17/20 17:00 87 20 83/13 (36) 01/17/20 17:00 83/13 01/17/20 16:30 93 14 50/31 (37) 01/17/20 16:23 98 14 98/14 (42) 01/17/20 16:00 97.6 123 24 102/23 (49) 01/17/20 16:00 134 01/17/20 16:00 Bi-pap 01/17/20 16:00 102/20 01/17/20 16:00 100 01/17/20 15:30 133 25 99/24 (49) 01/17/20 15:19 92/22 01/17/20 15:00 130 22 98/20 (46) 01/17/20 15:00 92/22 01/17/20 14:49 134 25 94 100 01/17/20 14:30 134 25 94/25 (48) 01/17/20 14:00 130 26 96/23 (47) 01/17/20 14:00 96/27 01/17/20 13:30 125 26 92/17 (42) 01/17/20 13:00 119 26 84/16 (38) 97 01/17/20 13:00 83/23 01/17/20 12:51 71/16 01/17/20 12:51 117 71/16 01/17/20 12:30 117 27 73/12 (32) 88 01/17/20 12:00 117 01/17/20 12:00 Bi-pap 01/17/20 12:00 72/19 01/17/20 12:00 100 01/17/20 12:00 117 24 74/16 (35) 91 Height (Feet): 5 Height (Inches): 5.00 Weight (Pounds): 90 HEENT: normocephalic, atraumatic, anicteric Respiratory/Chest: crackles/rales, rhonchi - bilaterally Cardiovascular: normal rate, regular rhythm Abdomen: normal bowel sounds, soft, non tender, no organomegaly Objective Chest x-ray - 01/15/20 - IMPRESSION: Hyperinflation of the lungs suggestive of COPD. Opacity in the right mid and lower lung may represents combination of small pleural effusion with atelectasis versus pneumonia. Laboratory Tests Test 01/18/20 03:45 White Blood Count 10.6 K/UL (4.8-10.8) Red Blood Count 3.03 M/UL (4.70-6.10) L Hemoglobin 9.0 G/DL (14.2-18.0) L Hematocrit 30.3 % (42.0-52.0) L Mean Corpuscular Volume 100 FL (80-99) H Mean Corpuscular Hemoglobin 29.7 PG (27.0-31.0) Mean Corpuscular Hemoglobin Concent 29.8 G/DL (32.0-36.0) L Red Cell Distribution Width 20.1 % (11.6-14.8) H Platelet Count 53 K/UL (150-450) L Mean Platelet Volume 8.9 FL (6.5-10.1) Neutrophils (%) (Auto) % (45.0-75.0) Lymphocytes (%) (Auto) % (20.0-45.0) Monocytes (%) (Auto) % (1.0-10.0) Eosinophils (%) (Auto) % (0.0-3.0) Basophils (%) (Auto) % (0.0-2.0) Differential Total Cells Counted 100 Neutrophils % (Manual) 76 % (45-75) H Lymphocytes % (Manual) 5 % (20-45) L Monocytes % (Manual) 8 % (1-10) Eosinophils % (Manual) 0 % (0-3) Basophils % (Manual) 0 % (0-2) Band Neutrophils 11 % (0-8) H Platelet Estimate Decreased L Platelet Morphology Normal Hypochromasia 1+ Anisocytosis 2+ Macrocytosis 2+ Sodium Level 135 MMOL/L (136-145) L Potassium Level 5.1 MMOL/L (3.5-5.1) Chloride Level 106 MMOL/L (98-107) Carbon Dioxide Level 23 MMOL/L (21-32) Anion Gap 6 mmol/L (5-15) Blood Urea Nitrogen 40 mg/dL (7-18) H Creatinine 4.4 MG/DL (0.55-1.30) H Estimat Glomerular Filtration Rate 12.8 mL/min (>60) Glucose Level 166 MG/DL (74-106) H Calcium Level 6.7 MG/DL (8.5-10.1) L Phosphorus Level 7.5 MG/DL (2.5-4.9) H Magnesium Level 1.7 MG/DL (1.8-2.4) L Total Bilirubin 0.6 MG/DL (0.2-1.0) Aspartate Amino Transf (AST/SGOT) 59 U/L (15-37) H Alanine Aminotransferase (ALT/SGPT) 16 U/L (12-78) Alkaline Phosphatase 43 U/L (46-116) L Total Protein 4.7 G/DL (6.4-8.2) L Albumin 1.1 G/DL (3.4-5.0) L Globulin 3.6 g/dL Albumin/Globulin Ratio 0.3 (1.0-2.7) L Current Medications Medications (Trade) Dose Ordered Sig/Dorothy Route PRN Reason Start Time Stop Time Status Last Admin Dose Admin Acetaminophen (Tylenol) 650 mg Q4H PRN ORAL Mild Pain (Pain Scale 1-3) 01/16/20 16:00 02/12/20 15:59 Albuterol/ Ipratropium (Albuterol/ Ipratropium) 3 ml Q6H PRN HHN Shortness of Breath 01/16/20 16:00 01/18/20 15:59 Chlorhexidine Gluconate (Wendy-Hex 2%) 1 applic DAILY@2000 TOPIC 01/16/20 20:00 04/15/20 19:59 01/17/20 20:15 Dextrose (Dextrose 50%) 25 ml Q30M PRN IV Hypoglycemia 01/16/20 15:45 04/12/20 18:44 Dextrose (Dextrose 50%) 50 ml Q30M PRN IV Hypoglycemia 01/16/20 15:45 04/12/20 18:44 Diphenhydramine HCl (Benadryl) 25 mg Q6H PRN ORAL Itching/Pruritis 01/16/20 16:00 02/12/20 15:59 Docusate Sodium (Colace) 100 mg EVERY 12 HOURS ORAL 01/16/20 21:00 02/12/20 20:59 Dopamine HCl/ Dextrose 250 ml @ 0 mls/hr Q24H IV 01/16/20 17:00 04/15/20 16:59 01/18/20 11:17 Heparin Sodium/ Sodium Chloride (Heparin 1000 units/500ml Premix) 1,000 unit ONCE PRN IV picc line placement 01/16/20 19:30 01/18/20 19:29 Lidocaine HCl (Xylocaine 1% 30ml) 30 ml ONCE PRN INJ PICC LINE PLACEMENT 01/16/20 19:30 01/18/20 19:29 Meropenem 500 mg/ Sodium Chloride 50 ml @ 100 mls/hr Q24H IVPB 01/17/20 22:00 01/22/20 21:59 01/17/20 21:35 Norepinephrine Bitartrate 8 mg/ Sodium Chloride 500 ml @ 0 mls/hr Q24H IV 01/17/20 21:00 02/16/20 20:59 01/18/20 11:16 Ondansetron HCl (Zofran) 4 mg Q6H PRN IVP Nausea & Vomiting 01/16/20 16:00 02/12/20 15:59 Phenylephrine HCl 100 mg/Dextrose 250 ml @ 0 mls/hr Q24H IV 01/17/20 13:00 02/16/20 12:59 01/18/20 11:17 Sodium Bicarbonate 100 ml/Dextrose 1,100 ml @ 50 mls/hr Q22H IV 01/17/20 11:30 02/16/20 11:29 01/18/20 08:40 Vancomycin HCl (Vanco rx to dose) 1 ea DAILY PRN MISC Per rx protocol 01/16/20 16:00 02/15/20 15:59 Marleny Rainey MD January 18, 2020 11:59
--- NOTE | 2020-01-18 12:20 | Pulmonology Progress Note ---
Subjective ROS Limited/Unobtainable: Yes Interval Events: None new Constitutional: Reports: other - + pressors HEENT: Repors: no symptoms Respiratory: Reports: no symptoms Cardiovascular: Reports: no symptoms Gastrointestinal/Abdominal: Denies: nausea, vomiting Genitourinary: Reports: no symptoms Psychiatric: Reports: other - NA Skin: Denies: rash Musculoskeletal: Reports: other - NA Allergies: Coded Allergies: LACTOSE (Unverified Allergy, Unknown, 01/13/20) Objective Last 24 Hour Vital Signs Date Time Temp Pulse Resp B/P (MAP) Pulse Ox O2 Delivery O2 Flow Rate FiO2 01/18/20 11:30 62 11 83/15 (37) 6 01/18/20 11:17 98 69/40 01/18/20 11:17 69/40 01/18/20 11:16 69/40 01/18/20 11:15 78 13 50/13 (25) 22 01/18/20 11:05 65 15 100 01/18/20 11:00 79 11 76/18 (37) 26 01/18/20 10:32 80 14 60/11 (27) 01/18/20 10:30 79 14 48/18 (28) 01/18/20 10:15 84 17 56/12 (27) 37 01/18/20 10:08 10.0 45 01/18/20 10:00 97 25 62/27 (39) 01/18/20 09:50 94 14 77/10 (32) 47 01/18/20 09:49 94 21 71/12 (31) 01/18/20 09:31 106 17 65/16 (32) 58 01/18/20 09:30 107 16 61/16 (31) 71 01/18/20 09:22 120 16 32/20 (24) 01/18/20 09:15 116 14 56/16 (29) 45 01/18/20 09:00 113 15 60/14 (29) 01/18/20 08:45 115 18 61/18 (32) 01/18/20 08:30 102 30 65/14 (31) 01/18/20 08:15 100 29 68/13 (31) 01/18/20 08:00 104 01/18/20 08:00 Bi-pap 01/18/20 08:00 100.0 100 21 79/22 (41) 01/18/20 08:00 4.0 01/18/20 07:05 100 12 100 01/18/20 07:00 113 18 59/11 (27) 01/18/20 07:00 65/18 01/18/20 07:00 65/18 01/18/20 06:45 113 17 62/15 (31) 01/18/20 06:30 110 18 68/14 (32) 01/18/20 06:15 106 26 64/16 (32) 01/18/20 06:00 64/16 01/18/20 06:00 64/16 01/18/20 06:00 99 25 62/16 (31) 34 01/18/20 05:45 102 24 66/13 (30) 01/18/20 05:30 104 26 69/13 (31) 01/18/20 05:27 77/17 01/18/20 05:26 77/17 01/18/20 05:15 104 25 77/17 (37) 01/18/20 05:06 103 12 100 01/18/20 05:00 69/11 01/18/20 05:00 69/11 01/18/20 05:00 97.5 101 23 71/13 (32) 59 01/18/20 04:45 99 22 69/11 (30) 69 01/18/20 04:30 99 20 68/12 (30) 79 01/18/20 04:15 99 24 71/16 (34) 01/18/20 04:15 100 71/14 01/18/20 04:00 Bi-pap 01/18/20 04:00 71/16 01/18/20 04:00 71/16 01/18/20 04:00 100 01/18/20 04:00 100 01/18/20 04:00 100 24 71/14 (33) 01/18/20 03:45 99 26 71/15 (33) 78 01/18/20 03:30 97 27 72/12 (32) 47 01/18/20 03:15 98 26 73/10 (31) 01/18/20 03:00 100 21 68/21 (37) 72 01/18/20 03:00 72/13 01/18/20 03:00 72/13 01/18/20 02:55 97 12 100 01/18/20 02:45 113 23 72/52 (59) 01/18/20 02:30 116 23 82/13 (36) 01/18/20 02:15 115 23 86/11 (36) 01/18/20 02:00 117 24 84/22 (42) 01/18/20 02:00 84/22 01/18/20 02:00 84/22 01/18/20 01:45 117 24 81/10 (33) 01/18/20 01:30 121 24 88/16 (40) 01/18/20 01:15 119 24 84/11 (35) 01/18/20 01:15 120 12 100 01/18/20 01:00 115 23 82/12 (35) 01/18/20 01:00 86/15 01/18/20 01:00 86/15 01/18/20 00:48 85/14 01/18/20 00:45 112 24 83/10 (34) 01/18/20 00:30 111 23 85/14 (37) 01/18/20 00:15 109 23 81/14 (36) 01/18/20 00:00 97.0 107 24 88/10 (36) 01/18/20 00:00 88/10 01/18/20 00:00 88/10 01/18/20 00:00 Bi-pap 01/18/20 00:00 100 01/18/20 00:00 116 01/17/20 23:45 105 23 84/12 (36) 01/17/20 23:30 102 23 87/12 (37) 01/17/20 23:15 101 24 83/10 (34) 01/17/20 23:00 98 22 85/11 (35) 01/17/20 23:00 85/11 01/17/20 23:00 85/11 01/17/20 22:50 98 14 100 01/17/20 22:45 98 24 80/13 (35) 01/17/20 22:30 110 26 89/15 (39) 74 01/17/20 22:15 115 28 91/28 (49) 81 01/17/20 22:00 92/15 01/17/20 22:00 92/15 01/17/20 22:00 118 26 92/15 (40) 86 01/17/20 21:45 120 28 89/13 (38) 89 01/17/20 21:30 123 27 89/19 (42) 91 01/17/20 21:15 124 27 83/15 (37) 93 01/17/20 21:00 129 27 81/14 (36) 99 01/17/20 21:00 83/15 01/17/20 21:00 83/15 01/17/20 20:45 137 24 80 100 01/17/20 20:45 133 27 81/20 (40) 100 01/17/20 20:30 135 28 85/13 (37) 72 01/17/20 20:18 81/13 01/17/20 20:17 81/12 01/17/20 20:15 136 27 82/13 (36) 0 01/17/20 20:00 Bi-pap 01/17/20 20:00 133 28 81/12 (35) 1 01/17/20 20:00 82/13 01/17/20 20:00 100 01/17/20 20:00 113 01/17/20 19:59 132 85/12 01/17/20 19:45 132 27 85/12 (36) 1 01/17/20 19:30 97.8 129 25 86/30 (48) 01/17/20 19:04 117 22 89 100 01/17/20 19:00 120 21 90/23 (45) 01/17/20 19:00 89/15 01/17/20 18:30 100 17 91/15 (40) 0 01/17/20 18:00 94 14 87/16 (39) 0 01/17/20 18:00 74/16 01/17/20 17:44 84/17 01/17/20 17:30 92 15 84/17 (39) 0 01/17/20 17:00 87 20 83/13 (36) 01/17/20 17:00 83/13 01/17/20 16:30 93 14 50/31 (37) 01/17/20 16:23 98 14 98/14 (42) 01/17/20 16:00 97.6 123 24 102/23 (49) 01/17/20 16:00 134 01/17/20 16:00 Bi-pap 01/17/20 16:00 102/20 01/17/20 16:00 100 01/17/20 15:30 133 25 99/24 (49) 01/17/20 15:19 92/22 01/17/20 15:00 130 22 98/20 (46) 01/17/20 15:00 92/22 01/17/20 14:49 134 25 94 100 01/17/20 14:30 134 25 94/25 (48) 01/17/20 14:00 130 26 96/23 (47) 01/17/20 14:00 96/27 01/17/20 13:30 125 26 92/17 (42) 01/17/20 13:00 119 26 84/16 (38) 97 01/17/20 13:00 83/23 01/17/20 12:51 71/16 01/17/20 12:51 117 71/16 01/17/20 12:30 117 27 73/12 (32) 88 Intake and Output 01/17/20 01/18/20 19:00 07:00 Intake Total 1977.177 ml 2778.992 ml Output Total 0 ml 0 ml Balance 1977.177 ml 2778.992 ml IV Total 1977.177 ml 2778.992 ml Output Urine Total 0 ml 0 ml General Appearance: no acute distress HEENT: normocephalic Respiratory: chest wall non-tender, decreased breath sounds Cardiovascular: normal peripheral pulses Abdomen: normal bowel sounds Extremities: no cyanosis Laboratory Tests 01/18/20 03:45: White Blood Count 10.6, Red Blood Count 3.03L, Hemoglobin 9.0L, Hematocrit 30.3L , Mean Corpuscular Volume 100H, Mean Corpuscular Hemoglobin 29.7, Mean Corpuscular Hemoglobin Concent 29.8L, Red Cell Distribution Width 20.1H, Platelet Count 53L, Mean Platelet Volume 8.9, Neutrophils (%) (Auto) , Lymphocytes (%) (Auto) , Monocytes (%) (Auto) , Eosinophils (%) (Auto) , Basophils (%) (Auto) , Differential Total Cells Counted 100, Neutrophils % ( Manual) 76H, Lymphocytes % (Manual) 5L, Monocytes % (Manual) 8, Eosinophils % ( Manual) 0, Basophils % (Manual) 0, Band Neutrophils 11H, Platelet Estimate DecreasedL, Platelet Morphology Normal, Hypochromasia 1+, Anisocytosis 2+, Macrocytosis 2+, Sodium Level 135L, Potassium Level 5.1, Chloride Level 106, Carbon Dioxide Level 23, Anion Gap 6, Blood Urea Nitrogen 40H, Creatinine 4.4H, Estimat Glomerular Filtration Rate 12.8, Glucose Level 166H, Calcium Level 6.7L , Phosphorus Level 7.5H, Magnesium Level 1.7L, Total Bilirubin 0.6, Aspartate Amino Transf (AST/SGOT) 59H, Alanine Aminotransferase (ALT/SGPT) 16, Alkaline Phosphatase 43L, Total Protein 4.7L, Albumin 1.1L, Globulin 3.6, Albumin/ Globulin Ratio 0.3L Current Medications Medications (Trade) Dose Ordered Sig/Dorothy Route PRN Reason Start Time Stop Time Status Last Admin Dose Admin Acetaminophen (Tylenol) 650 mg Q4H PRN ORAL Mild Pain (Pain Scale 1-3) 01/16/20 16:00 02/12/20 15:59 Albuterol/ Ipratropium (Albuterol/ Ipratropium) 3 ml Q6H PRN HHN Shortness of Breath 01/16/20 16:00 01/18/20 15:59 Chlorhexidine Gluconate (Wendy-Hex 2%) 1 applic DAILY@2000 TOPIC 01/16/20 20:00 04/15/20 19:59 01/17/20 20:15 Dextrose (Dextrose 50%) 25 ml Q30M PRN IV Hypoglycemia 01/16/20 15:45 04/12/20 18:44 Dextrose (Dextrose 50%) 50 ml Q30M PRN IV Hypoglycemia 01/16/20 15:45 04/12/20 18:44 Diphenhydramine HCl (Benadryl) 25 mg Q6H PRN ORAL Itching/Pruritis 01/16/20 16:00 02/12/20 15:59 Docusate Sodium (Colace) 100 mg EVERY 12 HOURS ORAL 01/16/20 21:00 02/12/20 20:59 Dopamine HCl/ Dextrose 250 ml @ 0 mls/hr Q24H IV 01/16/20 17:00 04/15/20 16:59 01/18/20 11:17 Heparin Sodium/ Sodium Chloride (Heparin 1000 units/500ml Premix) 1,000 unit ONCE PRN IV picc line placement 01/16/20 19:30 01/18/20 19:29 Lidocaine HCl (Xylocaine 1% 30ml) 30 ml ONCE PRN INJ PICC LINE PLACEMENT 01/16/20 19:30 01/18/20 19:29 Meropenem 500 mg/ Sodium Chloride 50 ml @ 100 mls/hr Q24H IVPB 01/17/20 22:00 01/22/20 21:59 01/17/20 21:35 Norepinephrine Bitartrate 8 mg/ Sodium Chloride 500 ml @ 0 mls/hr Q24H IV 01/17/20 21:00 02/16/20 20:59 01/18/20 11:16 Ondansetron HCl (Zofran) 4 mg Q6H PRN IVP Nausea & Vomiting 01/16/20 16:00 02/12/20 15:59 Phenylephrine HCl 100 mg/Dextrose 250 ml @ 0 mls/hr Q24H IV 01/17/20 13:00 02/16/20 12:59 01/18/20 11:17 Sodium Bicarbonate 100 ml/Dextrose 1,100 ml @ 50 mls/hr Q22H IV 01/17/20 11:30 02/16/20 11:29 01/18/20 08:40 Vancomycin HCl (Vanco rx to dose) 1 ea DAILY PRN MISC Per rx protocol 01/16/20 16:00 02/15/20 15:59 Assessment/Plan Assessment/Plan IMPRESSION: 1. Pneumonia. 2. Dementia. 3. ESRD, on dialysis. DISCUSSION: Continue oxygen and pulmonary hygiene. Currently saturating poorly on BiPAP HD per renal Will continue IV bicarb Broad-spectrum antibiotics. I will follow carefully. Now DNT, DNI Alex Rivera M.D. Alex Rivera MD January 18, 2020 12:20
--- NOTE | 2020-01-18 12:43 | NUR ---
NURSE NOTES: FAMILY MEMBERS HERE TO SAY LAST WORDS TO FATHER. VS 54/11, HR 39. RR 13. 02 SAT NOT REGISTERING. FAMILY BROUGHT B-DAY CARD AND TAPE TO PT WALL.
--- NOTE | 2020-01-18 12:50 | NUR ---
CASE MANAGEMENT: REVIEW SI: PNA . COVID-19 R/O T 99.0 HR 39 RR 11 BP 50/13 SAT 22% BIPAP FIO2 100 H/H 9.0/30.3 NA 135 BUN 40 CR 4.4 PHOS 7.5 MAG 1.7 IS: SODIUM BICARB IV 1,100MG @ 50ML/HR PHENYLEPHRINE Q24HR LEVOPHED IV Q24HR MEROPENEM IV Q24HR ICU STATUS DCP: PATIENT IS FROM HOME
--- NOTE | 2020-01-18 14:29 | NUR ---
NURSE NOTES: drips running low, replaced Dopamine running at 20mcg/kg/min, Levophed 30mcg/min. BP 54/16.
--- NOTE | 2020-01-18 16:00 | NUR ---
NURSE NOTES: pt unresponsive. hypotensive, carotid and femoral pulse felt, faint. last family members to visit. extremities cold to touch. weeping edema consistent. no void or bm. full face mask, bipap 15/5. will continue to monitor pt.
--- NOTE | 2020-01-18 17:06 | Internal Med Progress Note ---
Subjective Date of Service: January 18, 2020 Physician Name ToritoDavidRoxanna Attending Physician Ying Londono M.D. Current Medications Medications (Trade) Dose Ordered Sig/Dorothy Route PRN Reason Start Time Stop Time Status Last Admin Dose Admin Acetaminophen (Tylenol) 650 mg Q4H PRN ORAL Mild Pain (Pain Scale 1-3) 01/16/20 16:00 02/12/20 15:59 Chlorhexidine Gluconate (Wendy-Hex 2%) 1 applic DAILY@2000 TOPIC 01/16/20 20:00 04/15/20 19:59 01/17/20 20:15 Dextrose (Dextrose 50%) 25 ml Q30M PRN IV Hypoglycemia 01/16/20 15:45 04/12/20 18:44 Dextrose (Dextrose 50%) 50 ml Q30M PRN IV Hypoglycemia 01/16/20 15:45 04/12/20 18:44 Diphenhydramine HCl (Benadryl) 25 mg Q6H PRN ORAL Itching/Pruritis 01/16/20 16:00 02/12/20 15:59 Docusate Sodium (Colace) 100 mg EVERY 12 HOURS ORAL 01/16/20 21:00 02/12/20 20:59 Dopamine HCl/ Dextrose 250 ml @ 0 mls/hr Q24H IV 01/16/20 17:00 04/15/20 16:59 01/18/20 14:20 Heparin Sodium/ Sodium Chloride (Heparin 1000 units/500ml Premix) 1,000 unit ONCE PRN IV picc line placement 01/16/20 19:30 01/18/20 19:29 Lidocaine HCl (Xylocaine 1% 30ml) 30 ml ONCE PRN INJ PICC LINE PLACEMENT 01/16/20 19:30 01/18/20 19:29 Meropenem 500 mg/ Sodium Chloride 50 ml @ 100 mls/hr Q24H IVPB 01/17/20 22:00 01/22/20 21:59 01/17/20 21:35 Norepinephrine Bitartrate 8 mg/ Sodium Chloride 500 ml @ 0 mls/hr Q24H IV 01/17/20 21:00 02/16/20 20:59 01/18/20 14:20 Ondansetron HCl (Zofran) 4 mg Q6H PRN IVP Nausea & Vomiting 01/16/20 16:00 02/12/20 15:59 Phenylephrine HCl 100 mg/Dextrose 250 ml @ 0 mls/hr Q24H IV 01/17/20 13:00 02/16/20 12:59 01/18/20 11:17 Sodium Bicarbonate 100 ml/Dextrose 1,100 ml @ 50 mls/hr Q22H IV 01/17/20 11:30 02/16/20 11:29 01/18/20 08:40 Vancomycin HCl (Vanco rx to dose) 1 ea DAILY PRN MISC Per rx protocol 01/16/20 16:00 02/15/20 15:59 Allergies: Coded Allergies: LACTOSE (Unverified Allergy, Unknown, 01/13/20) Subjective Patient remains maxed out on three pressors and on 100% Fi02. Prognosis very poor, he is DNR/DNR. Objective Last Vital Signs Date Time Temp Pulse Resp B/P (MAP) Pulse Ox O2 Delivery O2 Flow Rate FiO2 01/18/20 16:15 44 12 64/13 (30) 01/18/20 16:00 96.0 01/18/20 16:00 Bi-pap 01/18/20 16:00 100 01/18/20 12:15 5 01/18/20 08:00 Laboratory Tests Test 01/18/20 03:45 White Blood Count 10.6 K/UL (4.8-10.8) Red Blood Count 3.03 M/UL (4.70-6.10) L Hemoglobin 9.0 G/DL (14.2-18.0) L Hematocrit 30.3 % (42.0-52.0) L Mean Corpuscular Volume 100 FL (80-99) H Mean Corpuscular Hemoglobin 29.7 PG (27.0-31.0) Mean Corpuscular Hemoglobin Concent 29.8 G/DL (32.0-36.0) L Red Cell Distribution Width 20.1 % (11.6-14.8) H Platelet Count 53 K/UL (150-450) L Mean Platelet Volume 8.9 FL (6.5-10.1) Neutrophils (%) (Auto) % (45.0-75.0) Lymphocytes (%) (Auto) % (20.0-45.0) Monocytes (%) (Auto) % (1.0-10.0) Eosinophils (%) (Auto) % (0.0-3.0) Basophils (%) (Auto) % (0.0-2.0) Differential Total Cells Counted 100 Neutrophils % (Manual) 76 % (45-75) H Lymphocytes % (Manual) 5 % (20-45) L Monocytes % (Manual) 8 % (1-10) Eosinophils % (Manual) 0 % (0-3) Basophils % (Manual) 0 % (0-2) Band Neutrophils 11 % (0-8) H Platelet Estimate Decreased L Platelet Morphology Normal Hypochromasia 1+ Anisocytosis 2+ Macrocytosis 2+ Sodium Level 135 MMOL/L (136-145) L Potassium Level 5.1 MMOL/L (3.5-5.1) Chloride Level 106 MMOL/L (98-107) Carbon Dioxide Level 23 MMOL/L (21-32) Anion Gap 6 mmol/L (5-15) Blood Urea Nitrogen 40 mg/dL (7-18) H Creatinine 4.4 MG/DL (0.55-1.30) H Estimat Glomerular Filtration Rate 12.8 mL/min (>60) Glucose Level 166 MG/DL (74-106) H Calcium Level 6.7 MG/DL (8.5-10.1) L Phosphorus Level 7.5 MG/DL (2.5-4.9) H Magnesium Level 1.7 MG/DL (1.8-2.4) L Total Bilirubin 0.6 MG/DL (0.2-1.0) Aspartate Amino Transf (AST/SGOT) 59 U/L (15-37) H Alanine Aminotransferase (ALT/SGPT) 16 U/L (12-78) Alkaline Phosphatase 43 U/L (46-116) L Total Protein 4.7 G/DL (6.4-8.2) L Albumin 1.1 G/DL (3.4-5.0) L Globulin 3.6 g/dL Albumin/Globulin Ratio 0.3 (1.0-2.7) L Intake and Output 01/17/20 01/18/20 19:00 07:00 Intake Total 1977.177 ml 2778.992 ml Output Total 0 ml 0 ml Balance 1977.177 ml 2778.992 ml IV Total 1977.177 ml 2778.992 ml Output Urine Total 0 ml 0 ml Objective General Appearance: On Bipap 100 % Fi02 EENT: PERRL/EOMI Cardiovascular: currently on pressor support , shock Respiratory/Chest: lungs clear, normal breath sounds, no respiratory distress Abdomen: soft 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 grossly normal Skin: warm/dry Assessment/Plan Assessment/Plan Assessment #Acute Hypoxic Respiratory Failure #Septic /Cardiogenic Shock #Aspiration PNA--> CXR w/ Right LL infiltrate #R/O COVID --> confirmed negative #ESRD on HD #Thrombocytopenia #Dementia Plan Appreciate Consultants BIpap support, Pressor support through HD cath; maintain MAP above 65 w/ pressors, currently maxed out on all three Continue Broad Spectrum w/ Vancomycin , Flagyl and Cefepime, Marti Cx notedd Continue HD per nephro--> currently unstable Monitor platelets, if drops below 50 hold chemical DVT ppx Diet as tolerated 01/16: Patient is DNR /DNI and very unstable. Will continue pressor support and BIpap support 01/17: maxed out on three pressors; poor prognosis Roxanna Ugarte D.O. January 18, 2020 17:06
--- NOTE | 2020-01-18 17:47 | Surgery Progress Note ---
Surgery Progress Note Subjective Additional Comments on 3 pressors max ill appearing comfort care plan Objective Last 24 Hour Vital Signs Date Time Temp Pulse Resp B/P (MAP) Pulse Ox O2 Delivery O2 Flow Rate FiO2 01/18/20 16:15 44 12 64/13 (30) 01/18/20 16:11 42 12 50/17 (28) 01/18/20 16:00 96.0 41 14 01/18/20 16:00 110 01/18/20 16:00 Bi-pap 01/18/20 16:00 100 01/18/20 15:15 83 8 47/12 (24) 01/18/20 15:05 85 12 100 01/18/20 15:00 85 12 57/12 (27) 01/18/20 14:20 69/41 01/18/20 14:20 69/41 01/18/20 14:15 38 14 54/16 (29) 01/18/20 14:00 39 14 67/11 (29) 01/18/20 13:30 84 15 52/11 (25) 01/18/20 13:15 65 12 59/12 (28) 01/18/20 13:00 39 14 71/11 (31) 01/18/20 12:15 39 15 54/11 (25) 5 01/18/20 12:00 Bi-pap 01/18/20 12:00 40 01/18/20 12:00 99.0 39 14 57/11 (26) 01/18/20 11:30 62 11 83/15 (37) 6 01/18/20 11:17 98 69/40 01/18/20 11:17 69/40 01/18/20 11:16 69/40 01/18/20 11:15 78 13 50/13 (25) 22 01/18/20 11:05 65 15 100 01/18/20 11:00 79 11 76/18 (37) 26 01/18/20 10:32 80 14 60/11 (27) 01/18/20 10:30 79 14 48/18 (28) 01/18/20 10:15 84 17 56/12 (27) 37 01/18/20 10:00 97 25 62/27 (39) 01/18/20 09:50 94 14 77/10 (32) 47 01/18/20 09:49 94 21 71/12 (31) 01/18/20 09:31 106 17 65/16 (32) 58 01/18/20 09:30 107 16 61/16 (31) 71 01/18/20 09:22 120 16 32/20 (24) 01/18/20 09:15 116 14 56/16 (29) 45 01/18/20 09:00 113 15 60/14 (29) 01/18/20 08:45 115 18 61/18 (32) 01/18/20 08:30 102 30 65/14 (31) 01/18/20 08:15 100 29 68/13 (31) 01/18/20 08:00 104 01/18/20 08:00 Bi-pap 01/18/20 08:00 100.0 100 21 79/22 (41) 01/18/20 08:00 100 01/18/20 07:05 100 12 100 01/18/20 07:00 113 18 59/11 (27) 01/18/20 07:00 65/18 01/18/20 07:00 65/18 01/18/20 06:45 113 17 62/15 (31) 01/18/20 06:30 110 18 68/14 (32) 01/18/20 06:15 106 26 64/16 (32) 01/18/20 06:00 64/16 01/18/20 06:00 64/16 01/18/20 06:00 99 25 62/16 (31) 34 01/18/20 05:45 102 24 66/13 (30) 01/18/20 05:30 104 26 69/13 (31) 01/18/20 05:27 77/17 01/18/20 05:26 77/17 01/18/20 05:15 104 25 77/17 (37) 01/18/20 05:06 103 12 100 01/18/20 05:00 69/11 01/18/20 05:00 69/11 01/18/20 05:00 97.5 101 23 71/13 (32) 59 01/18/20 04:45 99 22 69/11 (30) 69 01/18/20 04:30 99 20 68/12 (30) 79 01/18/20 04:15 99 24 71/16 (34) 01/18/20 04:15 100 71/14 01/18/20 04:00 Bi-pap 01/18/20 04:00 71/16 01/18/20 04:00 71/16 01/18/20 04:00 100 01/18/20 04:00 100 01/18/20 04:00 100 24 71/14 (33) 01/18/20 03:45 99 26 71/15 (33) 78 01/18/20 03:30 97 27 72/12 (32) 47 01/18/20 03:15 98 26 73/10 (31) 01/18/20 03:00 100 21 68/21 (37) 72 01/18/20 03:00 72/13 01/18/20 03:00 72/13 01/18/20 02:55 97 12 100 01/18/20 02:45 113 23 72/52 (59) 01/18/20 02:30 116 23 82/13 (36) 01/18/20 02:15 115 23 86/11 (36) 01/18/20 02:00 117 24 84/22 (42) 01/18/20 02:00 84/22 01/18/20 02:00 84/22 01/18/20 01:45 117 24 81/10 (33) 01/18/20 01:30 121 24 88/16 (40) 01/18/20 01:15 119 24 84/11 (35) 01/18/20 01:15 120 12 100 01/18/20 01:00 115 23 82/12 (35) 01/18/20 01:00 86/15 01/18/20 01:00 86/15 01/18/20 00:48 85/14 01/18/20 00:45 112 24 83/10 (34) 01/18/20 00:30 111 23 85/14 (37) 01/18/20 00:15 109 23 81/14 (36) 01/18/20 00:00 97.0 107 24 88/10 (36) 01/18/20 00:00 88/10 01/18/20 00:00 88/10 01/18/20 00:00 Bi-pap 01/18/20 00:00 100 01/18/20 00:00 116 01/17/20 23:45 105 23 84/12 (36) 01/17/20 23:30 102 23 87/12 (37) 01/17/20 23:15 101 24 83/10 (34) 01/17/20 23:00 98 22 85/11 (35) 01/17/20 23:00 85/11 01/17/20 23:00 85/11 01/17/20 22:50 98 14 100 01/17/20 22:45 98 24 80/13 (35) 01/17/20 22:30 110 26 89/15 (39) 74 01/17/20 22:15 115 28 91/28 (49) 81 01/17/20 22:00 92/15 01/17/20 22:00 92/15 01/17/20 22:00 118 26 92/15 (40) 86 01/17/20 21:45 120 28 89/13 (38) 89 01/17/20 21:30 123 27 89/19 (42) 91 01/17/20 21:15 124 27 83/15 (37) 93 01/17/20 21:00 129 27 81/14 (36) 99 01/17/20 21:00 83/15 01/17/20 21:00 83/15 01/17/20 20:45 137 24 80 100 01/17/20 20:45 133 27 81/20 (40) 100 01/17/20 20:30 135 28 85/13 (37) 72 01/17/20 20:18 81/13 01/17/20 20:17 81/12 01/17/20 20:15 136 27 82/13 (36) 0 01/17/20 20:00 Bi-pap 01/17/20 20:00 133 28 81/12 (35) 1 01/17/20 20:00 82/13 01/17/20 20:00 100 01/17/20 20:00 113 01/17/20 19:59 132 85/12 01/17/20 19:45 132 27 85/12 (36) 1 01/17/20 19:30 97.8 129 25 86/30 (48) 01/17/20 19:04 117 22 89 100 01/17/20 19:00 120 21 90/23 (45) 01/17/20 19:00 89/15 01/17/20 18:30 100 17 91/15 (40) 0 01/17/20 18:00 94 14 87/16 (39) 0 01/17/20 18:00 74/16 I&O Intake and Output 01/17/20 01/18/20 19:00 07:00 Intake Total 1977.177 ml 2778.992 ml Output Total 0 ml 0 ml Balance 1977.177 ml 2778.992 ml IV Total 1977.177 ml 2778.992 ml Output Urine Total 0 ml 0 ml Dressing: other Drains: other Cardiovascular: RSR Respiratory: decreased breath sounds Abdomen: soft, non-tender, present bowel sounds Extremities: no cyanosis Laboratory Tests Test 01/18/20 03:45 White Blood Count 10.6 K/UL (4.8-10.8) Red Blood Count 3.03 M/UL (4.70-6.10) L Hemoglobin 9.0 G/DL (14.2-18.0) L Hematocrit 30.3 % (42.0-52.0) L Mean Corpuscular Volume 100 FL (80-99) H Mean Corpuscular Hemoglobin 29.7 PG (27.0-31.0) Mean Corpuscular Hemoglobin Concent 29.8 G/DL (32.0-36.0) L Red Cell Distribution Width 20.1 % (11.6-14.8) H Platelet Count 53 K/UL (150-450) L Mean Platelet Volume 8.9 FL (6.5-10.1) Neutrophils (%) (Auto) % (45.0-75.0) Lymphocytes (%) (Auto) % (20.0-45.0) Monocytes (%) (Auto) % (1.0-10.0) Eosinophils (%) (Auto) % (0.0-3.0) Basophils (%) (Auto) % (0.0-2.0) Differential Total Cells Counted 100 Neutrophils % (Manual) 76 % (45-75) H Lymphocytes % (Manual) 5 % (20-45) L Monocytes % (Manual) 8 % (1-10) Eosinophils % (Manual) 0 % (0-3) Basophils % (Manual) 0 % (0-2) Band Neutrophils 11 % (0-8) H Platelet Estimate Decreased L Platelet Morphology Normal Hypochromasia 1+ Anisocytosis 2+ Macrocytosis 2+ Sodium Level 135 MMOL/L (136-145) L Potassium Level 5.1 MMOL/L (3.5-5.1) Chloride Level 106 MMOL/L (98-107) Carbon Dioxide Level 23 MMOL/L (21-32) Anion Gap 6 mmol/L (5-15) Blood Urea Nitrogen 40 mg/dL (7-18) H Creatinine 4.4 MG/DL (0.55-1.30) H Estimat Glomerular Filtration Rate 12.8 mL/min (>60) Glucose Level 166 MG/DL (74-106) H Calcium Level 6.7 MG/DL (8.5-10.1) L Phosphorus Level 7.5 MG/DL (2.5-4.9) H Magnesium Level 1.7 MG/DL (1.8-2.4) L Total Bilirubin 0.6 MG/DL (0.2-1.0) Aspartate Amino Transf (AST/SGOT) 59 U/L (15-37) H Alanine Aminotransferase (ALT/SGPT) 16 U/L (12-78) Alkaline Phosphatase 43 U/L (46-116) L Total Protein 4.7 G/DL (6.4-8.2) L Albumin 1.1 G/DL (3.4-5.0) L Globulin 3.6 g/dL Albumin/Globulin Ratio 0.3 (1.0-2.7) L Plan Problems: (1) Chronic renal failure (2) Suspected COVID-19 virus infection (3) Decubitus skin ulcer Assessment & Plan: Patient identified admission to have multiple areas of skin concerns. He is severely depleted and albumin is 1.7. Malnutrition severe protein calorie malnutrition. He is thin and frail skin. Rectal area identifies erythema as well as the distal sacrum likely incontinence associated. Bilateral heels are boggy with areas of deep tissue injury. Patient is high risk for developing open wounds that would be very difficult to heal. He is at high risk for deep tissue injury. Needs very close monitoring care to ensure plan during hospitalization as can deteriorate quickly. Leukocytosis. Air soft mattress ordered. Turn every 2 hours. Wash sacral and buttock area after incontinence. Apply OPTi foam to sacral and bilateral heels. Offload heels with pillows. Will monitor closely nutritional optimization (4) Leukocytosis Assessment & Plan: Hardware: Right-sided central venous catheter terminates near the junction of the SVC and right atrium. Lungs/pleura: Hyperinflation of the lungs suggestive of COPD. Opacity in the right mid and lower lung may represents combination of small pleural effusion with atelectasis versus pneumonia. Heart/mediastinum: Atherosclerotic calcifications of the aorta. No cardiomegaly. Soft tissues: Unremarkable. Bones: No acute fracture. Upper abdomen: Normal. IMPRESSION: Hyperinflation of the lungs suggestive of COPD. Opacity in the right mid and lower lung may represents combination of small pleural effusion with atelectasis versus pneumonia. worsening deconditioned respiratory decline on bipap on pressors wean will monitor line pna abx as per ID (5) Pneumonia (6) Severe protein-calorie malnutrition Assessment & Plan: DAILY ESTIMATED NEEDS: Needs based on ESRD, HD/ 37.5kg 30-35 kcals/kg 4145-2432 total kcals 1.2-1.8 g protein/kg 45-68 g total protein Fluids per MD NUTRITION DIAGNOSIS: Increased kcal/prot needs R/T ESRD, underweight status as evidenced by HD dependent, severely underweight w/ BMI 13.8 and @ 61% IBW. ADDITIONAL RECOMMENDATIONS: * Per HD record: dry wt on 01/12= 37.5kg (82.5#) -> calibrated bedscale wt, daily wt monitoring * Monitor PO intake closely, rec liberalized REGULAR w/ poor PO * Monitor lytes closely: K and mag wnl, check phos level -> add Nephrovite x 1 * Add Nepro TID w/ meals (425kcal/19g prot per mary) (7) Bleeding Additional Comments prognosis guarded comfort care Clint Damon January 18, 2020 17:47
--- NOTE | 2020-01-18 19:13 | NUR ---
HAND-OFF: Report given to ana rojas pt declining.
--- NOTE | 2020-01-18 19:50 | NUR ---
NURSE NOTES: LE; PATIENT NO RESPONSE TO VERBALLY AND TACTILE STIMULI, ON BIPAP I/E 15/5, FIO2 100% RATE 12, DESATURATION NOTED, HR 90'S/MIN, ABDOMEN SOFT, NO BM STATUS, NPO STATUS, ALL EXTREMITIES PITTING EDEMA, WEEPING FROM BOTH ARMS, PERMA CATH TO RIGHT SC AND PPL TO RIGHT UA, INTACT AND PATENT, ONGOING LEVOPHED 30MCG/MIN, DOPAMINE 20MCG/KG/MIN, PHENYLEPHRINE 240MCG/MIN AND IV FLUID D5W W/NA BICARB 100ML AT 50ML/HR VIA PERMA CATH, MADE LOWER BED POSITION, ON BED ALARM AND LOCKED, WILL CONTINUE TO MONITOR.
[2020-01-18] MEDS: Dyna-Hex 2% Top Sol 2oz TOPIC SCH (20:21)
--- NOTE | 2020-01-18 21:21 | Cardiology Progress Note ---
Assessment/Plan Status: stable Assessment/Plan Assessment/Plan Status: unstable Assessment/Plan: ASSESSMENT: Right PNA ESRD Chest pain Dementia Thrombocytopenia COPD PLAN Unstable in ICU now DNR/DNI On 3 pressers and still hypotensive on dopamine ephinephrine and phenylephrine -Diuresis per nephrology -Continue broad antibiotics -Echocardiograms to evaluate filling pressures -Poor prognosis likely to in 24-48 hours Subjective Cardiovascular: Reports: no symptoms Respiratory: Reports: no symptoms Gastrointestinal/Abdominal: Reports: no symptoms Genitourinary: Reports: no symptoms Subjective Continues to be in ICU in critical condition, non responsive Maxed on three pressors Likely to in next day or two currently on BiPAP 15/5 Minimal urine output, on bicarb gtt Objective Last 24 Hour Vital Signs Date Time Temp Pulse Resp B/P (MAP) Pulse Ox O2 Delivery O2 Flow Rate FiO2 01/18/20 21:12 53 9 189/139 (156) 8 01/18/20 21:10 94 4 160/75 (103) 01/18/20 21:00 82 16 01/18/20 20:30 94 14 88/38 (55) 28 01/18/20 20:29 91 17 85/60 (68) 01/18/20 20:15 98 11 42/12 (22) 01/18/20 20:00 Bi-pap 01/18/20 20:00 97.7 99 13 47/12 (24) 01/18/20 20:00 100 01/18/20 19:45 96 13 45/14 (24) 01/18/20 19:30 94 18 45/12 (23) 01/18/20 19:30 95 01/18/20 19:06 84 16 49/12 (24) 01/18/20 19:01 97 15 92 100 01/18/20 19:00 83 14 01/18/20 18:30 84 5 46/10 (22) 17 01/18/20 18:24 45/15 01/18/20 18:16 47 14 46/15 (25) 01/18/20 18:00 42 13 01/18/20 17:33 42 14 60/11 (27) 01/18/20 17:00 83 11 77/36 (50) 01/18/20 16:15 44 12 64/13 (30) 01/18/20 16:11 42 12 50/17 (28) 01/18/20 16:00 96.0 41 14 01/18/20 16:00 110 01/18/20 16:00 Bi-pap 01/18/20 16:00 100 01/18/20 15:15 83 8 47/12 (24) 01/18/20 15:05 85 12 100 01/18/20 15:00 85 12 57/12 (27) 01/18/20 14:20 69/41 01/18/20 14:20 69/41 01/18/20 14:15 38 14 54/16 (29) 01/18/20 14:00 39 14 67/11 (29) 01/18/20 13:30 84 15 52/11 (25) 01/18/20 13:15 65 12 59/12 (28) 01/18/20 13:00 39 14 71/11 (31) 01/18/20 12:15 39 15 54/11 (25) 5 01/18/20 12:00 Bi-pap 01/18/20 12:00 40 01/18/20 12:00 99.0 39 14 57/11 (26) 01/18/20 11:30 62 11 83/15 (37) 6 01/18/20 11:17 98 69/40 01/18/20 11:17 69/40 01/18/20 11:16 69/40 01/18/20 11:15 78 13 50/13 (25) 22 01/18/20 11:05 65 15 100 01/18/20 11:00 79 11 76/18 (37) 26 01/18/20 10:32 80 14 60/11 (27) 01/18/20 10:30 79 14 48/18 (28) 01/18/20 10:15 84 17 56/12 (27) 37 01/18/20 10:00 97 25 62/27 (39) 01/18/20 09:50 94 14 77/10 (32) 47 01/18/20 09:49 94 21 71/12 (31) 01/18/20 09:31 106 17 65/16 (32) 58 01/18/20 09:30 107 16 61/16 (31) 71 01/18/20 09:22 120 16 32/20 (24) 01/18/20 09:15 116 14 56/16 (29) 45 01/18/20 09:00 113 15 60/14 (29) 01/18/20 08:45 115 18 61/18 (32) 01/18/20 08:30 102 30 65/14 (31) 01/18/20 08:15 100 29 68/13 (31) 01/18/20 08:00 104 01/18/20 08:00 Bi-pap 01/18/20 08:00 100.0 100 21 79/22 (41) 01/18/20 08:00 100 01/18/20 07:05 100 12 100 01/18/20 07:00 113 18 59/11 (27) 01/18/20 07:00 65/18 01/18/20 07:00 65/18 01/18/20 06:45 113 17 62/15 (31) 01/18/20 06:30 110 18 68/14 (32) 01/18/20 06:15 106 26 64/16 (32) 01/18/20 06:00 64/16 01/18/20 06:00 64/16 01/18/20 06:00 99 25 62/16 (31) 34 01/18/20 05:45 102 24 66/13 (30) 01/18/20 05:30 104 26 69/13 (31) 01/18/20 05:27 77/17 01/18/20 05:26 77/17 01/18/20 05:15 104 25 77/17 (37) 01/18/20 05:06 103 12 100 01/18/20 05:00 69/11 01/18/20 05:00 69/11 01/18/20 05:00 97.5 101 23 71/13 (32) 59 01/18/20 04:45 99 22 69/11 (30) 69 01/18/20 04:30 99 20 68/12 (30) 79 01/18/20 04:15 99 24 71/16 (34) 01/18/20 04:15 100 71/14 01/18/20 04:00 Bi-pap 01/18/20 04:00 71/16 01/18/20 04:00 71/16 01/18/20 04:00 100 01/18/20 04:00 100 01/18/20 04:00 100 24 71/14 (33) 01/18/20 03:45 99 26 71/15 (33) 78 01/18/20 03:30 97 27 72/12 (32) 47 01/18/20 03:15 98 26 73/10 (31) 01/18/20 03:00 100 21 68/21 (37) 72 01/18/20 03:00 72/13 01/18/20 03:00 72/13 01/18/20 02:55 97 12 100 01/18/20 02:45 113 23 72/52 (59) 01/18/20 02:30 116 23 82/13 (36) 01/18/20 02:15 115 23 86/11 (36) 01/18/20 02:00 117 24 84/22 (42) 01/18/20 02:00 84/22 01/18/20 02:00 84/22 01/18/20 01:45 117 24 81/10 (33) 01/18/20 01:30 121 24 88/16 (40) 01/18/20 01:15 119 24 84/11 (35) 01/18/20 01:15 120 12 100 01/18/20 01:00 115 23 82/12 (35) 01/18/20 01:00 86/15 01/18/20 01:00 86/15 01/18/20 00:48 85/14 01/18/20 00:45 112 24 83/10 (34) 01/18/20 00:30 111 23 85/14 (37) 01/18/20 00:15 109 23 81/14 (36) 01/18/20 00:00 97.0 107 24 88/10 (36) 01/18/20 00:00 88/10 01/18/20 00:00 88/10 01/18/20 00:00 Bi-pap 01/18/20 00:00 100 01/18/20 00:00 116 01/17/20 23:45 105 23 84/12 (36) 01/17/20 23:30 102 23 87/12 (37) 01/17/20 23:15 101 24 83/10 (34) 01/17/20 23:00 98 22 85/11 (35) 01/17/20 23:00 85/11 01/17/20 23:00 85/11 01/17/20 22:50 98 14 100 01/17/20 22:45 98 24 80/13 (35) 01/17/20 22:30 110 26 89/15 (39) 74 01/17/20 22:15 115 28 91/28 (49) 81 01/17/20 22:00 92/15 01/17/20 22:00 92/15 01/17/20 22:00 118 26 92/15 (40) 86 01/17/20 21:45 120 28 89/13 (38) 89 01/17/20 21:30 123 27 89/19 (42) 91 General Appearance: cachetic, lethargic EENT: PERRL/EOMI, normal ENT inspection, pale conjunctivae Neck: non-tender, normal alignment, normal inspection, JVD Rhythm: ST Cardiovascular: normal peripheral pulses, tachycardia Respiratory/Chest: chest wall non-tender, accessory muscle use, crackles/rales , rhonchi - bilaterally Abdomen: normal bowel sounds, non tender, soft, no organomegaly, no mass Extremities: non-tender, normal inspection Neurologic: abnormal CN, motor weakness, sensory deficit, disoriented Intake and Output 01/17/20 01/18/20 19:00 07:00 Intake Total 1977.177 ml 2778.992 ml Output Total 0 ml 0 ml Balance 1977.177 ml 2778.992 ml IV Total 1977.177 ml 2778.992 ml Output Urine Total 0 ml 0 ml Laboratory Tests Test 01/18/20 03:45 White Blood Count 10.6 K/UL (4.8-10.8) Red Blood Count 3.03 M/UL (4.70-6.10) L Hemoglobin 9.0 G/DL (14.2-18.0) L Hematocrit 30.3 % (42.0-52.0) L Mean Corpuscular Volume 100 FL (80-99) H Mean Corpuscular Hemoglobin 29.7 PG (27.0-31.0) Mean Corpuscular Hemoglobin Concent 29.8 G/DL (32.0-36.0) L Red Cell Distribution Width 20.1 % (11.6-14.8) H Platelet Count 53 K/UL (150-450) L Mean Platelet Volume 8.9 FL (6.5-10.1) Neutrophils (%) (Auto) % (45.0-75.0) Lymphocytes (%) (Auto) % (20.0-45.0) Monocytes (%) (Auto) % (1.0-10.0) Eosinophils (%) (Auto) % (0.0-3.0) Basophils (%) (Auto) % (0.0-2.0) Differential Total Cells Counted 100 Neutrophils % (Manual) 76 % (45-75) H Lymphocytes % (Manual) 5 % (20-45) L Monocytes % (Manual) 8 % (1-10) Eosinophils % (Manual) 0 % (0-3) Basophils % (Manual) 0 % (0-2) Band Neutrophils 11 % (0-8) H Platelet Estimate Decreased L Platelet Morphology Normal Hypochromasia 1+ Anisocytosis 2+ Macrocytosis 2+ Sodium Level 135 MMOL/L (136-145) L Potassium Level 5.1 MMOL/L (3.5-5.1) Chloride Level 106 MMOL/L (98-107) Carbon Dioxide Level 23 MMOL/L (21-32) Anion Gap 6 mmol/L (5-15) Blood Urea Nitrogen 40 mg/dL (7-18) H Creatinine 4.4 MG/DL (0.55-1.30) H Estimat Glomerular Filtration Rate 12.8 mL/min (>60) Glucose Level 166 MG/DL (74-106) H Calcium Level 6.7 MG/DL (8.5-10.1) L Phosphorus Level 7.5 MG/DL (2.5-4.9) H Magnesium Level 1.7 MG/DL (1.8-2.4) L Total Bilirubin 0.6 MG/DL (0.2-1.0) Aspartate Amino Transf (AST/SGOT) 59 U/L (15-37) H Alanine Aminotransferase (ALT/SGPT) 16 U/L (12-78) Alkaline Phosphatase 43 U/L (46-116) L Total Protein 4.7 G/DL (6.4-8.2) L Albumin 1.1 G/DL (3.4-5.0) L Globulin 3.6 g/dL Albumin/Globulin Ratio 0.3 (1.0-2.7) L Stefan Rapp MD January 18, 2020 21:21
--- NOTE | 2020-01-18 22:05 | NUR ---
NURSE NOTES: LE: PATIENT NO RESPONSIVE TO TACTILE STIMULI, KEPT BIPAP, NO SATURATION NOTED TO MONITOR DUE TO UNABLE TO CATCH, WILL CONTINUE TO MONITOR.
[2020-01-19 00:02] VITALS: BP 99/42
--- NOTE | 2020-01-19 00:10 | NUR ---
NURSE NOTES: HR 30'S/MIN SB, WEAK SIGNAL NOTED, ONGOING DOPAMINE, LEVOPHED AND PHENYLEPHRINE MAXIMUM DOSE STATUS, ALTERNATIVE BP NOTED, LEG ELEVATED, WILL CONTINUE TO MONITOR.
[2020-01-19 00:15] VITALS: BP 48/27
[2020-01-19 00:45] VITALS: BP 151/52
[2020-01-19 01:39] VITALS: BP 89/64
[2020-01-19 01:44] VITALS: BP 51/17
[2020-01-19] MEDS ORDERED: NS 275ml ONE (01:47)
[2020-01-19] MEDS ORDERED: Tubing IV Secondary IV ONE (01:47)
[2020-01-19] MEDS ORDERED: NS 500ML ONE (01:47)
[2020-01-19] MEDS ORDERED: D5W 275ml ONE (01:47)
--- NOTE | 2020-01-19 01:48 | NUR ---
PRONOUNCEMENT: No Code. Called to pronounce patient. Absence of spontaneous respirations, no cardiac or breath sounds on auscultation. Pupils fixed and dilated. No carotid pulse or chest movement. Patient at 0148. DR RAMIRES notified PER KALEB CLARK RN. Family was notified at .
--- NOTE | 2020-01-19 01:48 | NUR ---
LE; PRONOUNCEMENT:BY [facility] MANAGER LAB JOESPH VILLASENOR. No Code. Called to pronounce patient. Absence of spontaneous respirations, no cardiac or breath sounds on auscultation. Pupils fixed and dilated. No carotid pulse or chest movement. Patient at 0148AM.
--- NOTE | 2020-01-19 01:48 | NUR ---
NURSE NOTES: Nursing supervisor beam department Esme Odom Pronounced patient at this time.
--- NOTE | 2020-01-19 01:57 | NUR ---
NURSE NOTES: Called son at this time and notified him father has . Mortuary information has been provided. Patient is to go to [facility]. Telephone consent was received to release the body to mortuary at this time.
--- NOTE | 2020-01-19 02:07 | NUR ---
NURSE NOTES: Called and spoke with [facility] [employer] at this time. Spoke to Ophelia, Patient is not a candidate for donation DNN number [id number]
--- NOTE | 2020-01-19 02:10 | NUR ---
NURSE NOTES: [place] [facility] office was called and informed of patient . Per Carl "patient is not a [facility] case and the body may be released to the the mortuary".
--- NOTE | 2020-01-19 02:12 | NUR ---
NURSE NOTES: Patient son Stefan called at this time, wants to come see father. Informed him he can come see his father and mortuary will them come to [facility] pick[facility] the body.
--- NOTE | 2020-01-19 02:15 | NUR ---
NURSE NOTES: Called and spoke to Shonda at [facility] at this time. Informed her of patient . All patient information has been provided and sonStefan information has also been provided also. Instructed me to call back once son had arrived and seen father, they will then come and package pick up the patient.
--- NOTE | 2020-01-19 02:47 | NUR ---
NURSE NOTES: PT'S SON CAME, SEE THE PATIENT.
--- NOTE | 2020-01-19 02:47 | NUR ---
NURSE NOTES: Son has arrived on the unit and is ready to have body picked up. Called Alfonso Moreno at this time. Body will be picked up in an hour or two.
--- NOTE | 2020-01-22 20:40 | Discharge Summary ---
Discharge Summary Hospital Course Date of Admission January 13, 2020 at 17:00 Date of Discharge January 19, 2020 at 01:48 Admitting Diagnosis PNEUMONIA HPI Bj Cooley is a 85 year old male who was admitted on January 13, 2020 at 17:00 for Pneumonia Hospital Course Assessment #Aspiration PNA--> CXR w/ Right LL infiltrate #R/O COVID #ESRD on HD #Thrombocytopenia #Dementia Plan Appreciate Consultants Continue Broad Spectrum w/ Vancomycin , Flagyl and Cefepime Marti Cx Will consider swallow eval given concern for aspiration PNA Pending COVID test, obtain predictive markers Continue HD per nephro Monitor platelets, if drops below 50 hold chemical DVT ppx Obtain and Reconcile home meds Diet as tolerated During hospital stay, patient became acutely hypoxic and developed shock. He was made DNR /DNI and . Dx #Acute Hypoxic Respiratory Failure #Aspiration PNA #ESRD on HD #Thrombocytopenia #Dementia Discharge Discharge Vital Signs Last Vital Signs Date Time Temp Pulse Resp B/P (MAP) Pulse Ox O2 Delivery O2 Flow Rate FiO2 01/19/20 01:45 24 1 01/19/20 01:44 51/17 (28) 01/19/20 00:00 96.5 01/19/20 00:00 Bi-pap 01/18/20 21:59 85 100 01/18/20 08:00 Discharge Disposition Patient was discharged to Roxanna Ugarte D.O. January 22, 2020 20:40
== END 2020-01-19 01:48 | disposition expired | DRG 871 ==
LOC: EDBD 16:05 → EMR 16:15 → 2E 17:00 → EDBEDREQ 18:01 → 2E 18:48 → ICU 01-16 15:16
DX: A41.9 Sepsis, unspecified organism (principal); J69.0 Pneumonitis due to inhalation of food and vomit; J96.01 Acute respiratory failure with hypoxia; N18.6 End stage renal disease; E43 Unspecified severe protein-calorie malnutrition; R65.21 Severe sepsis with septic shock; I12.0 Hypertensive chronic kidney disease with stage 5 chronic kidney disease or end stage renal disease; R57.0 Cardiogenic shock; Z51.5 Encounter for palliative care; E11.22 Type 2 diabetes mellitus with diabetic chronic kidney disease; D69.6 Thrombocytopenia, unspecified; F03.90 Unspecified dementia, unspecified severity, without behavioral disturbance, psychotic disturbance, mood disturbance, and anxiety; G30.9 Alzheimer's disease, unspecified; F02.80 Dementia in other diseases classified elsewhere, unspecified severity, without behavioral disturbance, psychotic disturbance, mood disturbance, and anxiety; Z99.2 Dependence on renal dialysis; L89.90 Pressure ulcer of unspecified site, unspecified stage; Z66 Do not resuscitate
CPT/HCPCS: 36415; 36600; 71045; 80048; 80053; 80202; 82306; 82550; 82553; 82728; 82803; 82962; 83540; 83550; 83605; 83615; 83735; 83880; 83970; 84100; 84484; 85007; 85025; 85379; 85610; 85730; 86140; 86706; 87040; 87081; 87635; 93005; 94660; 96365; 99291; J2370; J7030